=== PATIENT | female | born 1935 | race Caucasian/White ===

== ENCOUNTER 2016-12-03 12:27 | Inpatient (IN) ==
--- NOTE | 2016-12-03 12:48 | Emergency Department Note ---
Disposition Clinical Impression: Atrial fibrillation with rapid ventricular response, Acute blood loss anemia, Acute kidney injury superimposed on chronic kidney disease Disposition: Admitted As Inpatient Condition: Fair SOB HPI - General Chief Complaint: ED Shortness of Breath/Dyspnea Stated Complaint: "shortness of breath, off bp meds, tachy" Source: patient, EMS Mode of arrival: EMS Limitations: no limitations Nursing Notes Reviewed: Yes Vital Signs Reviewed: Yes - History of Present Illness 81-year-old female with a history of bioprosthetic mitral valve replacement 2000 , atrial fibrillation, heart failure EF 55-60% (10/24/15), COPD typically on 2L home oxygenation presents to the ED via EMS for difficulty in breathing. Patient reports recent discontinuation of her metoprolol due to persistent low blood pressures. This was reportedly done over the last 2 days. She reports progressive dyspnea over the past month. She denies any fevers or illness but does report coughing up phlegm or frequently. There is no particular colored is typically clear. She typically is able to walk into the kitchen but today was unable to. Her home health nurse called Dr. Vizcarra and was told to come to the ED for further evaluation. She reports scheduled appointment to your primary care physician was sent here instead. Denies any new medications and she continues to take her Coumadin. Denies any recent falls, chest pain, or nausea.Reports chronic abdominal pain for several months now. Denies any urinary symptoms. Review of her blood pressure she typically is in systolic 90s to 100. She lives at home in assisted living. Pt Subjective Complaint: shortness of breath - Related Data Home Medications Medication Instructions Recorded Confirmed Aspirin 81 mg PO DAILY 02/14/15 12/03/16 Cholecalciferol (Vitamin D3) 2,000 unit PO DAILY 02/14/15 12/03/16 [Vitamin D3] Docusate Sodium [Colace] 100 mg PO BID PRN 02/14/15 12/03/16 Estradiol [Estrace] 0.5 gm VG 2XW 02/14/15 12/03/16 Iron Polysaccharide Complex 150 mg PO BID 02/14/15 12/03/16 [Ferrex 150] Levothyroxine [Synthroid] 125 mcg PO 0630 02/14/15 12/03/16 Metolazone [Zaroxolyn] 2.5 mg PO Q48H 02/14/15 12/03/16 Metoprolol [Lopressor] 25 mg PO BID 02/14/15 12/03/16 Nitroglycerin 0.4 mg SL Q5MIN PRN 02/14/15 12/03/16 Omeprazole [PriLOSEC] 20 mg PO DAILY 02/14/15 12/03/16 Potassium Chloride 60 meq PO BID 02/14/15 12/03/16 Ranitidine HCl [Zantac] 150 mg PO BID PRN 02/14/15 12/03/16 Rosuvastatin [Crestor] 10 mg PO HS 02/14/15 12/03/16 Ascorbate Calcium [Vitamin C] 500 mg PO DAILY 05/12/16 12/03/16 Ondansetron HCl [Zofran] 4 mg PO TID PRN 05/12/16 12/03/16 Furosemide [Lasix] 80 mg PO DAILY MDD on hold 12/03/16 12/03/16 Loratadine [Allergy Relief] 10 mg PO DAILY 12/03/16 12/03/16 Oxycodone HCl [Oxaydo] 2.5 - 5 mg PO BID PRN 12/03/16 12/03/16 Oxygen 2 l NS CONT 12/03/16 12/03/16 Warfarin [Coumadin] 2 mg PO DAILY 12/03/16 12/03/16 Previous Rx's Medication Instructions Recorded Albuterol Neb [Proventil Neb] 2.5 mg IH [id number] #0 inhsol 05/16/16 Allergies Allergy/AdvReac Type Severity Reaction Status Date / Time Iodinated Contrast- Oral and Allergy Severe Anaphylaxis Verified 02/23/15 14:09 IV Dye [Iodinated Contrast Media - IV Dye] iodine Allergy Severe Anaphylaxis Verified 02/23/15 14:09 Penicillins Allergy Severe Swelling Verified 02/23/15 14:09 of Lip/Tongue/Throat povidone-iodine Allergy Severe Anaphylaxis Verified 02/23/15 14:09 [From Betadine] soap [From Betadine] Allergy Severe Anaphylaxis Verified 02/23/15 14:09 atorvastatin Allergy Intermediate Rash Verified 02/23/15 14:09 Sulfa (Sulfonamide Allergy Intermediate Rash Verified 02/23/15 14:09 Antibiotics) bacitracin Allergy Mild Rash Verified 02/23/15 14:09 nitrofurantoin Allergy Mild Rash Verified 02/23/15 14:09 [From Macrobid] polymyxin B Allergy Unknown See Verified 02/23/15 14:09 Comments egg yolk AdvReac Mild Nausea Verified 02/23/15 14:09 All systems ED: reviewed and negative except as stated. Constitutional: Denies: fever Cardiovascular: Reports: dyspnea on exertion. Denies: chest pain Respiratory: Reports: cough, dyspnea. Denies: hemoptysis, sputum production Gastrointestinal: Reports: abdominal pain. Denies: nausea, vomiting Genitourinary: Denies: urgency Musculoskeletal: Reports: back pain (Chronic) Integumentary: Denies: rash, abrasion Neurological: Denies: headache Past Medical History - Past Medical History Attestation: Yes The following information was validated with the patient. Source: patient Medical history: Reports: atrial fibrillation, CHF, COPD, coronary artery disease, GERD, hepatitis, hypertension, myocardial infarction, thyroid disease, valvular heart disease Surgical history: Reports: heart valve replacement (mitral), other (mitral and tricuspid valve leaflet repairs 2014) Psychiatric history: Reports: no psych history - Social History Smoking Status: Never smoker Smokeless Tobacco Status: No Alcohol use: Reports: none Drug use: Reports: none Physical Exam - General Limitations: no limitations, age General appearance: alert, in no apparent distress - Head Head exam: atraumatic, normocephalic, normal inspection - Eye Eye exam: Present: normal appearance, PERRL, EOMI, other (pale conjunctiva). Absent: scleral icterus - ENT ENT exam: normal exam, normal oropharynx, mucous membranes moist - Neck Neck exam: Present: normal inspection, full ROM, trachea midline - Chest Chest inspection: Present: normal inspection, symmetric chest wall rise. Absent : tenderness - Respiratory Respiratory exam: Present: normal lung sounds bilaterally. Absent: respiratory distress, wheezes - Expanded Respiratory Exam Location: decreased breath sounds: Right - Cardiovascular Cardiovascular exam: Present: tachycardia, irregular rhythm, normal heart sounds - Expanded Cardiovascular Exam Peripheral pulses: 2+: radial (R), radial (L) - Abdominal Exam Abdominal exam: Present: soft, tenderness, normal bowel sounds. Absent: distention, guarding, rebound, rigidity Abdominal tenderness: Present: diffuse - Extremities Exam Extremities exam: Present: normal inspection, full ROM, normal capillary refill , pedal edema (+2 symmetrical). Absent: tenderness, calf tenderness - Back Exam Back exam: Present: other (kyphosis) - Neurological Exam Neurological exam: Present: alert, oriented X3 - Psychiatric Psychiatric exam: Present: normal affect, normal mood - Skin Skin exam: Present: warm, dry, intact, pallor Course Course Narrative: 81-year-old female presents with worsening dyspnea. Patient is in atrial fibrillation with rapid ventricular response heart rate 120s. She has been recently discontinued on her metoprolol. Patient is on 2 L nasal cannula with good oxygen saturation. She does not appear in any respiratory distress. Heart is irregularly irregular. She has diminished breath sounds on the right but no rails. Pitting edema symmetric bilaterally. Concern this is a mixed picture of CHF versus aphid with RVR. Does report recent hospitalization for pneumonia in May 2016. She appears sensitive to beta blockers will give her small dose of Cardizem to rate control. Will get a CBC, BMP, INR to check for her Coumadin level, BNP and chest x-ray. Patient is in agreement with this plan. Anticipate admission. - Reevaluation(s) Reevaluation #1: Patient's sister reports patient is having chest pain. She does have a history of chronic back pain and this was mistaken as pain. I went into the room to evaluate the patient she says this is not feel like any chest pain. She was nauseated from the medication given and while she was spitting up at some discomfort. EKG was performed in does not show any EKG changes. A critical lab was reported hemoglobin low 5.2. Type and screen ordered. Suspect this is why she is A fib c RVR. Patient does report bloody stool yesterday after wiping. History of polyps after colonoscopy with removal. Required blood transfusion several years ago after a fall. Her last hgb 9 in May 2016. Transfuse 2 units of pRBC after getting consent. Time: 13:36 Reevaluation #2: Review of her labs anemia 5.2. Suspect acute G.I. bleed. BUN is 53. Her INR appears therapeutic 3.5. Her potassium is 5.5 she reports taking supplemental potassium at home. Her creatinine is elevated 2.14 she has a history of CK D. Planus for admission. She has consented to blood transfusion. Heart rate continues to be 120s while on Cardizem. Suspect her arrhythmia will improve after transfusion. Time: 13:59 Reevaluation #3: Continue to await G.I. to call back. Call the calling center appears he is busy with a procedure at this moment. She continues to be stable. Currently receiving 1st unit of packed red blood cells. Time: 15:40 - Consultations Consultation #1: Spoke with on-call hospitalist félix Guzman to admit for acute G.I. bleed anemia, TJ on CKD, atrial fibrillation with rapid ventricular response. Recommends to consult G.I. for possible endoscopy tomorrow Time: 14:27 Consultation #2: Patient is already admitted and transferred to the floor. Dr. Robertson GI, called back and was informed of case. He is on board for possible endoscopy. Time: 18:53 Vital Signs Temperature 97.5 F L 12/03/16 12:33 Pulse Rate 121 12/03/16 12:33 Respiratory Rate 18 12/03/16 12:33 Blood Pressure 116/67 12/03/16 12:33 O2 Sat by Pulse Oximetry 100 12/03/16 12:33 Temperature 97.9 F 12/03/16 18:20 Pulse Rate 99 12/03/16 18:20 Respiratory Rate 18 12/03/16 18:20 Blood Pressure 95/63 12/03/16 18:20 O2 Sat by Pulse Oximetry 100 12/03/16 18:20 Oxygen Delivery Oxygen Delivery Nasal Cannula Shortness of Breath/Dyspnea - MDM Narrative Medical decision making narrative: I examined this patient and my medical decision-making was reviewed with the AIRCRAFT MACHINIST HELPER/PA/Advanced Practice Nurse/Resident Physician. I agree with the documented findings, disposition and treatment plan as described except to the extent set forth below. Patient was seen on arrival by Dr. Dempsey and myself, I agree with his evaluation and management plan, supervised care the patient notes today. Patient states that she has had rapid heart rate and dyspnea going for last couple days. She states they have taken her off her beta camelia because her heart rate was getting too low. She thinks that may be causing this. She is of A. fib in the past. She denies any chest pain at this time. No edema. Brachial workup on her started on Cardizem here and reassessed. She is in agreement with plan. She will need admission. Chest X-Ray 12/03/16 12:31 IMPRESSION: Moderate right pleural effusion with basilar atelectasis. Cardiomegaly. D/ / Saleem French MD / Saleem French MD Interpreting Provider: Saleem French MD 1400 hrs.: Patient does have a GI bleaches a dark-colored stools low hemoglobin. I think that is why the reasons why she has A. fib with RVR. She has had A. fib in the past. We will keep her on the Cardizem. When I talk with GI. Go ahead and set up for transfusion. And bring her into the hospital. She is in agreement with this plan. Impression was A. fib with RVR. GI bleed with anemia. Patient's critical care time exclusive separately billable procedures is 40 minutes. - Medical Records Medical records reviewed: Yes I reviewed the patient's medical records. - Lab Data Lab results reviewed: Yes I reviewed the patient's lab results. Result diagrams: 12/03/16 13:04 12/03/16 13:04 Lab Results 12/03/16 12/03/16 12/03/16 Range/Units 13:04 13:04 13:04 WBC 5.7 (4.3-11.1) K/mcL RBC 3.05 L (3.82-4.97) M/mcL Hgb 5.2 L* (11.5-15.4) g/dL Hct 19.8 L (35.3-44.9) % MCV 64.9 L (83.0-100.0) fL MCH 17.0 L (28.0-33.3) pg MCHC 26.3 L (31.6-35.5) g/dL RDW 19.8 H (11.5-14.5) % Plt Count 210 (140-400) K/mcL MPV TNP Immature Gran % 0.4 (0-4) % Seg Neutrophils % 65.8 % Lymphocytes % 14.3 % Monocytes % 14.3 % Eosinophils % 4.8 % Basophils % 0.4 % Neutrophils # 3.8 (1.6-8.9) K/mcL Lymphocytes # 0.8 (0.6-4.6) K/mcL Monocytes # 0.8 (0.0-1.3) K/mcL Eosinophils # 0.3 (0.0-0.6) K/mcL Basophils # 0.0 (0.0-0.2) K/mcL Platelet Estimate Normal (Normal) Polychromasia 3+ A (Not Present) Hypochromasia Present A (Not Present) Anisocytosis 2+ A (Not Present) Microcytosis Present A (Not Present) Schistocytes 3+ A (Not Present) PT 39.1 H (9.4-12.1) Seconds INR 3.5 Sodium 137 (136-145) mEq/L Potassium 5.5 H (3.5-4.5) mEq/L Chloride 106 (98-109) mEq/L Carbon Dioxide 23 (19-29) mEq/L BUN 53 H (7-20) mg/dL Creatinine 2.14 H (0.57-1.11) mg/dL Est GFR ( Amer) 27 L (> 60) Est GFR (Non-Af Amer) 22 L (> 60) BUN/Creatinine Ratio 25 (6-26) Glucose 121 H (70-99) mg/dL Calculated Osmolality 300 (280-300) Calcium 9.0 (8.6-10.8) mg/dL Troponin I (0-0.03) ng/mL B-Natriuretic Peptide (0-100) pg/mL Blood Type Antibody Screen Crossmatch 12/03/16 12/03/16 12/03/16 Range/Units 13:04 13:04 13:49 WBC (4.3-11.1) K/mcL RBC (3.82-4.97) M/mcL Hgb (11.5-15.4) g/dL Hct (35.3-44.9) % MCV (83.0-100.0) fL MCH (28.0-33.3) pg MCHC (31.6-35.5) g/dL RDW (11.5-14.5) % Plt Count (140-400) K/mcL MPV Immature Gran % (0-4) % Seg Neutrophils % % Lymphocytes % % Monocytes % % Eosinophils % % Basophils % % Neutrophils # (1.6-8.9) K/mcL Lymphocytes # (0.6-4.6) K/mcL Monocytes # (0.0-1.3) K/mcL Eosinophils # (0.0-0.6) K/mcL Basophils # (0.0-0.2) K/mcL Platelet Estimate (Normal) Polychromasia (Not Present) Hypochromasia (Not Present) Anisocytosis (Not Present) Microcytosis (Not Present) Schistocytes (Not Present) PT (9.4-12.1) Seconds INR Sodium (136-145) mEq/L Potassium (3.5-4.5) mEq/L Chloride (98-109) mEq/L Carbon Dioxide (19-29) mEq/L BUN (7-20) mg/dL Creatinine (0.57-1.11) mg/dL Est GFR ( Amer) (> 60) Est GFR (Non-Af Amer) (> 60) BUN/Creatinine Ratio (6-26) Glucose (70-99) mg/dL Calculated Osmolality (280-300) Calcium (8.6-10.8) mg/dL Troponin I 0.01 (0-0.03) ng/mL B-Natriuretic Peptide 473 H (0-100) pg/mL Blood Type O NEGATIVE Antibody Screen NEGATIVE Crossmatch See Detail - Radiology Data Radiology results reviewed: Yes I reviewed the patient's radiology results. Chest X-Ray 12/03/16 12:31 IMPRESSION: Moderate right pleural effusion with basilar atelectasis. Cardiomegaly. D/ / Saleem French MD / Saleem French MD Interpreting Provider: Saleem French MD - EKG Data EKG attestation: Yes I reviewed and interpreted this EKG. EKG results narrative: EKG performed 1234 reveals atrial fibrillation with rapid ventricular response 125 bpm with aberrancy old RBBB, QRS calculated 97, nonspecific ST changes secondary to rate. No acute ischemic changes. Compared to old EKG performed which reveals sinus bradycardia with the first-degree AV block Emmer right bundle branch block QRS 121
[2016-12-03 13:24] LABS: Red Cell Distribution Width 19.8 % (11.5-14.5)
[2016-12-03 13:25] LABS: Hematocrit 19.8 % (35.3-44.9); Immature Granulocytes % 0.4 % (0-4); Lymphocytes % 14.3 %; Mean Corpuscular HGB Conc 26.3 g/dL (31.6-35.5); Mean Corpuscular Volume 64.9 fL (83.0-100.0); Platelet Count 210 K/mcL (140-400); Red Blood Count 3.05 M/mcL (3.82-4.97); Segmented Neutrophils % 65.8 %
[2016-12-03 13:26] LABS: Basophils % 0.4 %; Eosinophils # 0.3 K/mcL (0.0-0.6); Eosinophils % 4.8 %; INR 3.5; Lymphocytes # 0.8 K/mcL (0.6-4.6); Monocytes # 0.8 K/mcL (0.0-1.3); Monocytes % 14.3 %; Prothrombin Time 39.1 Seconds (9.4-12.1)
[2016-12-03 13:33] LABS: Potassium 5.5 mEq/L (3.5-4.5)
[2016-12-03 13:37] LABS: Neutrophils # 3.8 K/mcL (1.6-8.9)
[2016-12-03] MEDS ORDERED: Ondansetron 4 MG/2 ML VIAL IVP ONE (13:37)
[2016-12-03 13:38] LABS: Hemoglobin 5.2 g/dL (11.5-15.4)
[2016-12-03] MEDS ORDERED: *HR* HYDROcodone/Acet 5/325 mg TABLET PO ONE (13:54)
[2016-12-03 14:07] LABS: Anisocytosis 2+ (Not Present)
[2016-12-03 14:08] LABS: Hypochromasia Present (Not Present); Microcytosis Present (Not Present)
[2016-12-03 14:09] LABS: Platelet Estimate Normal (Normal); Polychromasia 3+ (Not Present); Schistocytes 3+ (Not Present)
[2016-12-03] MEDS ORDERED: 0.9 % Sodium Chloride 250 ML ONE (14:54)
[2016-12-03] MEDS ORDERED: Furosemide 20 MG/2 ML VIAL IVP ONE (17:37)
[2016-12-03] MEDS ORDERED: Naloxone 0.4 MG/ML INJ IVP PRN (17:47)
--- NOTE | 2016-12-03 17:58 | Internal Med History&Physical ---
Date of Encounter: 12/03/16 Time of Encounter: 17:30 Assessment and Plan (1) Anemia Current visit: Yes Status: Acute Patient with acute severe blood loss anemia with hemoglobin of 5.2. Transfuse packed red blood cells. Consult GI. Negative blood counts. High risk for complications due to chronic Coumadin therapy. Most likely from GI bleed. Qualifiers: Anemia type: other cause Other causes of anemia: acute posthemorrhagic Qualified Code(s): D62 - Acute posthemorrhagic anemia (2) Acute blood loss anemia Current visit: Yes Status: Acute (3) Atrial fibrillation with rapid ventricular response Current visit: Yes Status: Acute Patient in A. fib with RVR. Started on intravenous Cardizem drip. We will continue and titrate to keep heart rate less than 100. (4) Chronic diastolic heart failure Current visit: Yes Status: Chronic We will give 1 dose of IV Lasix today in between blood transfusions. Patient does have worsening pedal edema. As blood pressure improves, will resume home regimen of Lasix. (5) Supratherapeutic international normalized ratio (INR) Current visit: Yes Status: Acute INR is 3.5. Hold Coumadin. On chronic Coumadin therapy for A. fib. Patient also has a bioprosthetic mitral valve. (6) JT (acute kidney injury) Current visit: Yes Status: Acute Mild acute kidney injury on chronic kidney disease likely related to anemia. We will transfuse. Follow renal function. (7) Acute kidney injury superimposed on chronic kidney disease Current visit: Yes Status: Acute (8) CKD (chronic kidney disease) stage 3, GFR 30-59 ml/min Current visit: No Status: Chronic (9) Chronic respiratory failure with hypoxia Current visit: Yes Status: Chronic Continue O2 supplementation. (10) GI bleed Current visit: Yes Status: Acute Patient presenting with lower GI bleed. Hold Coumadin. Place on PPI. Consult GI. Monitor blood counts. Qualifiers: GI bleed type/associated pathology: anorectal hemorrhage Qualified Code(s) : K62.5 - Hemorrhage of anus and rectum Internal Medicine - H&P: HPI Chief complaint: Shortness of breath, generalized weakness, lower extremity swelling Admitted From: Emergency Dept Plans for Post Hospital Care: Home History of present illness: Ms. Carter is a 81 year old female patient with history of atrial fibrillation, bioprosthetic mitral valve replacement on chronic Coumadin therapy, congestive heart failure presented to the ER with complaints of shortness of breath and generalized weakness. She has also been having worsening of her pedal edema for the past couple of days after she was advised to hold Lasix and metoprolol due to low blood pressures. She denies any chest pain. No nausea or vomiting. She also has been noticing blood in her stools for the past week or so. She feels fatigued. Complains of palpitations off and on. No focal weakness. Past Med Surg Social Fam HX - Past Medical History Attestation: Yes The following information was validated with the patient. Source: patient, old records reviewed, obtained from family Medical history: atrial fibrillation, CHF, COPD, coronary artery disease, GERD, hepatitis, hypertension, myocardial infarction, thyroid disease, valvular heart disease Psychiatric history: no psych history - Past Surgical History Surgical History: heart valve replacement (mitral), other (mitral and tricuspid valve leaflet repairs 2014) - Social History Smoking Status: Never smoker Smokeless Tobacco Status: No Alcohol use: none Drug use: none - Family History Father Living Status: Hx Family Cardiac Disorders: Yes Mother Family Member Ethnicity: Non- Living Status: Hx Family Cardiac Disorders: Yes Sister Living Status: Still Living Hx Family Cancer: Yes (colon) Hx Family Endocrine Disorder: Yes (DM) Internal Medicine - H&P: Meds Aspirin 81 mg PO DAILY 02/14/15 [History] Cholecalciferol (Vitamin D3) [Vitamin D3] 2,000 unit PO DAILY 02/14/15 [History] Docusate Sodium [Colace] 100 mg PO BID PRN 02/14/15 [History] Estradiol [Estrace] 0.5 gm VG 2XW 02/14/15 [History] Iron Polysaccharide Complex [Ferrex 150] 150 mg PO BID 02/14/15 [History] Levothyroxine [Synthroid] 125 mcg PO 0630 02/14/15 [History] Metolazone [Zaroxolyn] 2.5 mg PO Q48H 02/14/15 [History] Metoprolol [Lopressor] 25 mg PO BID 02/14/15 [History] Nitroglycerin 0.4 mg SL Q5MIN PRN 02/14/15 [History] Omeprazole [PriLOSEC] 20 mg PO DAILY 02/14/15 [History] Potassium Chloride 60 meq PO BID 02/14/15 [History] Ranitidine HCl [Zantac] 150 mg PO BID PRN 02/14/15 [History] Rosuvastatin [Crestor] 10 mg PO HS 02/14/15 [History] Ascorbate Calcium [Vitamin C] 500 mg PO DAILY 05/12/16 [History] Ondansetron HCl [Zofran] 4 mg PO TID PRN 05/12/16 [History] Albuterol Neb [Proventil Neb] 2.5 mg IH [id number] #0 inhsol 05/16/16 [Rx] Furosemide [Lasix] 80 mg PO DAILY MDD on hold 12/03/16 [History] Loratadine [Allergy Relief] 10 mg PO DAILY 12/03/16 [History] Oxycodone HCl [Oxaydo] 2.5 - 5 mg PO BID PRN 12/03/16 [History] Oxygen 2 l NS CONT 12/03/16 [History] Warfarin [Coumadin] 2 mg PO DAILY 12/03/16 [History] Allergies Iodinated Contrast- Oral and IV Dye [Iodinated Contrast Media - IV Dye] Allergy (Severe, Verified 02/23/15 14:09) Anaphylaxis iodine Allergy (Severe, Verified 02/23/15 14:09) Anaphylaxis Penicillins Allergy (Severe, Verified 02/23/15 14:09) Swelling of Lip/Tongue/Throat povidone-iodine [From Betadine] Allergy (Severe, Verified 02/23/15 14:09) Anaphylaxis soap [From Betadine] Allergy (Severe, Verified 02/23/15 14:09) Anaphylaxis atorvastatin Allergy (Intermediate, Verified 02/23/15 14:09) Rash Sulfa (Sulfonamide Antibiotics) Allergy (Intermediate, Verified 02/23/15 14:09) Rash bacitracin Allergy (Mild, Verified 02/23/15 14:09) Rash nitrofurantoin [From Macrobid] Allergy (Mild, Verified 02/23/15 14:09) Rash polymyxin B Allergy (Unknown, Verified 02/23/15 14:09) See Comments egg yolk Adverse Reaction (Mild, Verified 02/23/15 14:09) Nausea All Systems PM: A 10-system review of systems was performed and is negative for pertinent findings except as documented above in the HPI. - Constitutional Constitutional: fatigue, malaise, weakness, no chills, no fever(s), no night sweats - EENT Eyes: no change in vision, no discharge, no pain, no photophobia Ears: no ear discharge, no ear pain, no tinnitus Nose, mouth and throat: no dysphagia, no nasal discharge, no neck pain, no sore throat - Cardiovascular Cardiovascular ROS IM: dyspnea, dyspnea on exertion, edema, palpitations, no chest pain, no diaphoresis, no lightheadedness, no syncope - Respiratory Respiratory: no dyspnea, no wheezing, no excessive phlegm production - Gastrointestinal Gastrointestinal: hematochezia, no abdominal pain, no diarrhea, no hematemesis, no melena, no nausea, no vomiting - Genitourinary Genitourinary: no change in urinary stream, no dysuria, no flank pain, no hematuria - Musculoskeletal Musculoskeletal ROS IM: no numbness, no tingling - Integumentary Integumentary IM: no rash, no unusual bruising - Neurological Neurological ROS: no confusion, no convulsions, no focal weakness, no numbness, no tingling, no tremor(s) - Hematologic/Lymphatic Hematologic/Lymphatic: easy bleeding, no easy bruising - Constitutional Vitals: Temp Pulse Resp BP Pulse Ox 97.5 F L 101 18 91/58 98 12/03/16 16:58 12/03/16 16:58 12/03/16 16:58 12/03/16 16:58 12/03/16 16:58 General appearance: Present: cooperative, mild distress, A&O X 3, pleasant, answers questions appropriately - Neck Neck exam general surgery: Present: supple, trachea midline. Absent: lymphadenopathy - Respiratory Respiratory exam: Present: CTAB. Absent: accessory muscle use, rales, rhonchi, wheezes - Cardiovascular Cardiovascular exam: Present: irregular rhythm (Irregularly irregular), +S1, +S2 , systolic murmur, tachycardia. Absent: diastolic murmur, gallop, rubs - Extremities Exam Extremities exam: Present: warm, radial pulses palpable and symetrical. Absent : calf tenderness, cyanotic, pedal edema - Neurological Exam Neurological exam: Present: alert, CN II-XII intact, oriented X3, no focal deficits. Absent: facial droop, speech deficit - Skin Skin exam: Present: dry, intact Internal Med - H&P Results - Labs CBC & Chem 7: 12/03/16 13:04 12/03/16 13:04 - Impressions Impressions Chest X-Ray 12/03/16 12:31 IMPRESSION: Moderate right pleural effusion with basilar atelectasis. Cardiomegaly. D/ / Saleem French MD / Saleem French MD Interpreting Provider: Saleem French MD
[2016-12-03] MEDS ORDERED: Nitroglycerin 0.4 MG TAB.SUBL SL PRN (18:10)
[2016-12-03] MEDS: Iron Polysaccharide Complex 150 MG CAPSULE PO SCH (20:15)
[2016-12-03] MEDS: Albuterol 2.5 MG/3 ML NEBULIZER IH SCH (20:35)
[2016-12-03] MEDS: *HR* OxyCODONE Immed Rel 5 MG TABLET PO PRN (20:45)
[2016-12-03] MEDS: Ondansetron 4 MG/2 ML VIAL IVP PRN (20:47)
[2016-12-04] MEDS: Albuterol 2.5 MG/3 ML NEBULIZER IH SCH ×3 (00:05→09:15)
[2016-12-04 01:11] LABS: Immature Granulocytes % 0.6 % (0-4); Segmented Neutrophils % 63.2 %
[2016-12-04 01:13] LABS: Basophils # 0.1 K/mcL (0.0-0.2); Basophils % 0.8 %; Eosinophils # 0.3 K/mcL (0.0-0.6); Eosinophils % 3.9 %; Hematocrit 25.8 % (35.3-44.9); Hemoglobin 7.5 g/dL (11.5-15.4); Immature Platelets 6.1 % (1.1-6.1); Lymphocytes # 1.2 K/mcL (0.6-4.6); Lymphocytes % 18.7 %; Mean Corpuscular HGB Conc 29.1 g/dL (31.6-35.5); Mean Corpuscular Hemoglobin 20.2 pg (28.0-33.3); Mean Corpuscular Volume 69.4 fL (83.0-100.0); Monocytes # 0.8 K/mcL (0.0-1.3); Monocytes % 12.8 %; Neutrophils # 4.1 K/mcL (1.6-8.9); Nucleated Red Blood Cells 0.8 /100 WBC (0); Platelet Count 144 K/mcL (140-400); Red Blood Count 3.72 M/mcL (3.82-4.97)
[2016-12-04 01:15] LABS: INR 2.6; Prothrombin Time 29.4 Seconds (9.4-12.1)
[2016-12-04 01:20] LABS: Calcium 8.7 mg/dL (8.6-10.8); Potassium 4.5 mEq/L (3.5-4.5)
[2016-12-04 01:37] LABS: Anisocytosis 3+ (Not Present); Hypochromasia Present (Not Present); Microcytosis Present (Not Present); Platelet Estimate Normal (Normal); Poikilocytosis 2+ (Not Present); Schistocytes 1+ (Not Present); Target Cells 1+ (Not Present)
[2016-12-04] MEDS ORDERED: Acetaminophen 325 MG TABLET PO ONE (05:04)
[2016-12-04] MEDS: *HR* OxyCODONE Immed Rel 5 MG TABLET PO PRN ×2 (06:05→15:47)
[2016-12-04] MEDS: Iron Polysaccharide Complex 150 MG CAPSULE PO SCH ×2 (07:40→21:13)
[2016-12-04] MEDS: Loratadine 10 MG TABLET PO SCH (07:40)
[2016-12-04] MEDS ORDERED: Aspirin 81 MG TAB.CHEW PO SCH (09:00)
--- NOTE | 2016-12-04 09:11 | Internal Med Progress Note ---
Date of Encounter: 12/04/16 Time of Encounter: 09:09 - Assessment and plan (1) Acute blood loss anemia Current Visit: Yes Status: Acute Assessment and plan: Secondary to GI bleed Hold Coumadin and Aspirin at this time S/p 2unit PRBC transfusion Will transfuse one more unit, given current clinical status awaiting GI consultation closely monitor H&H, H&H q12h INR within therapeutic range at this time, will follow up with GI in regards to further INR reversal prior to colonoscopy NPO at this time, will start clear liquid diet if no GI intervention is scheduled for today (2) Acute kidney injury superimposed on chronic kidney disease Current Visit: Yes Status: Acute Assessment and plan: Likely secondary to acute blood loss will transfuse one more unit PRBC hold antihypertensive agents at this time will closely monitor renal function avoid nephrotoxic agents at this time. (3) Atrial fibrillation with rapid ventricular response Current Visit: Yes Status: Acute Assessment and plan: Afib with RVR rate poorly controlled likely secondary to acute blood loss hold off on cardizem gtt at this time pt clinically stable at this time will transfuse one more unit PRBC and if tachycardia persists, will start amiodarone hold anticoagulation at this time hold ASA at this time (4) CAD (coronary artery disease) Current Visit: No Status: Chronic Assessment and plan: no signs of angina present at this time hold ASA at this time continue statin hold BB given current BP readings Qualifiers: Coronary Disease-Associated Artery/Lesion type: unspecified vessel or lesion type [place] vs. transplanted heart: [place] heart Associated angina: without angina Qualified Code(s): I25.10 - Atherosclerotic heart disease of [place] coronary artery without angina pectoris (5) Chronic diastolic heart failure Current Visit: Yes Status: Chronic (6) Chronic respiratory failure with hypoxia Current Visit: Yes Status: Chronic Assessment and plan: Secondary to acute blood loss anemia improved since admission continue O2 supplementation as needed (7) COPD (chronic obstructive pulmonary disease) Current Visit: No Status: Chronic Assessment and plan: not in acute exacerbation continue home medications closely monitor O2 saturation Qualifiers: COPD type: unspecified COPD Qualified Code(s): J44.9 - Chronic obstructive pulmonary disease, unspecified (8) Supratherapeutic international normalized ratio (INR) Current Visit: Yes Status: Resolved Assessment and plan: Resolved INR within therapeutic range at this time hold off on anticoagulation at this time (9) DVT prophylaxis Current Visit: Yes Status: Acute Assessment and plan: SCD - Subjective Interval history: Patient is an 81y/o female admitted for acute blood loss anemia and Afib with RVR. Patient seen and examined with daughter present at bedside. Patient reports of noticing blood in stool intermittently for the last few weeks and has continued to take her Coumadin and ASA. She is currently resting in bed and reports of feeling better compared to previous day. States she still feels slightly short of breath however its better since her arrival. Denies any chest pain at this time. NO reported episodes of BM or hemetemesis since admission. Noted to remain in Afib with RVR and given labile BP will hold off on cardizem gtt. Will transfuse another unit PRBC and closely monitor. I had a detailed discussion with the patient and daughter in regards to patient' s advance directives. Patient wishes to be DNR/DNI. Daughter states that she has filled paper work expressing patient's wishes. - Constitutional Vitals: Temp Pulse Resp BP Pulse Ox 97.4 F L 109 16 84/62 96 12/04/16 07:55 12/04/16 07:55 12/04/16 07:55 12/04/16 07:55 12/04/16 07:55 General appearance: Present: cooperative, A&O X 3, pleasant, no acute distress, answers questions appropriately - Head Head exam: Present: atraumatic, normocephalic - Eye Eye exam: Present: normal appearance, conjuntiva pink, sclera anicteric - Respiratory Respiratory exam: Present: CTAB. Absent: respiratory distress, wheezes - Cardiovascular Cardiovascular exam: Present: irregular rhythm, +S1, +S2, tachycardia - GI/Abdominal GI/Abdominal exam: Present: normal bowel sounds, soft. Absent: distended, tenderness - Extremities Exam Extremities exam: Present: pedal edema (mild bilateral pitting edema ), warm, radial pulses palpable and symetrical. Absent: calf tenderness - Neurological Exam Neurological exam: Present: alert, oriented X3 - Psychiatric Psychiatric exam: Present: normal affect, normal mood Internal Medicine: Result - Labs CBC & Chem 7: 12/04/16 00:41 12/04/16 00:41 Labs: Short CBC 12/04/16 Range/Units 00:41 WBC 6.5 (4.3-11.1) K/mcL Hgb 7.5 L D (11.5-15.4) g/dL Hct 25.8 L (35.3-44.9) % Plt Count 144 (140-400) K/mcL Neutrophils # 4.1 (1.6-8.9) K/mcL BMP 12/04/16 00:41 Sodium 137 Potassium 4.5 D Chloride 105 Carbon Dioxide 20 BUN 51 H Creatinine 2.02 H Glucose 148 H Calcium 8.7 - ABG Interpretation ABG results: PT/INR, D-dimer PT 29.4 Seconds (9.4-12.1) H 12/04/16 00:41 Consult Discharge Plan - Plan Referrals: Grayson Vizcarra MD [Primary Care Provider] -
[2016-12-04] MEDS ORDERED: *HR* Phytonadione 10 MG/ML AMPUL SQ ONE (09:35)
[2016-12-04] MEDS ORDERED: 0.9 % Sodium Chloride 250 ML ONE (09:50)
--- NOTE | 2016-12-04 12:07 | Gastroenterology Consult Note ---
<Alonzo Nesbitt - Last Filed: 12/04/16 12:04> Date of Encounter: 12/04/16 Time of Encounter: 10:20 - Assessment and plan (1) Anemia Current Visit: Yes Status: Acute Assessment and plan: Hemoccult 5.2 at admission, this a.m. hemoglobin 7.5. Continue to monitor CBC and transfuse PRBCs as needed. Plan for EGD and colonoscopy tomorrow. Clear liquid diet today, no red or purple. NPO at midnight. If unable tolerate NuLytely please use MiraLAX prep. If not clear by 6 AM, give 2 tap water enemas. Qualifiers: Anemia type: other cause Other causes of anemia: acute posthemorrhagic Qualified Code(s): D62 - Acute posthemorrhagic anemia (2) Supratherapeutic international normalized ratio (INR) Current Visit: Yes Status: Resolved Assessment and plan: INR 2.6, will need to be corrected for EGD and colonoscopy to 1.5. (3) COPD (chronic obstructive pulmonary disease) Current Visit: No Status: Chronic Assessment and plan: Management per primary team. Qualifiers: COPD type: unspecified COPD Qualified Code(s): J44.9 - Chronic obstructive pulmonary disease, unspecified (4) Atrial fibrillation with rapid ventricular response Current Visit: Yes Status: Acute (5) Family history of colon cancer Current Visit: Yes Status: Acute Assessment and plan: Patient's sister diagnosed at age 78. - Time Spent With Patient Total time spent is greater than 50% in coordination of care (as documented) at patient's floor/unit and/or counseling patient: GI History of Present Illness - Data of Consult Patient: new to practice Consult date: 12/04/16 Requesting Physician: Rose Marie Figueredo MD - Consult Narrative Reason for consult: Anemia, GI Bleed History of present illness: Ms. Carter is a 81 year old female with PMHx of Afib, CHF, COPD, CAD, mitral valve replacement on Coumadin, GERD, HTN, ND who presented to the ED with c/o shortness of breath and weakness. She denies fever, chills, chest pain, abdominal pain, nausea, or vomiting. We were consulted to evaluate her anemia. Hgb on admission was 5.2 and after 2 units PRBC her Hgb is 7.5. INR was supratherapeutic at 3.5 on admission and this morning INR 2.6. She reported BRBPR with wiping the day before admission. Pt states her sister was diagnosed with colon cancer at age 78. Procedures: Colonoscopy 09/10/2011 Dr. Busby: Significant looping of the colon, diverticulosis. NSAIDs: ASA Anticoagulation: Coumadin Past Med Surg Social Fam HX - Past Medical History Medical history: atrial fibrillation, CHF, COPD, coronary artery disease, GERD, hepatitis, hypertension, myocardial infarction, thyroid disease, valvular heart disease Psychiatric history: no psych history - Past Surgical History Surgical History: heart valve replacement (mitral), other (mitral and tricuspid valve leaflet repairs 2014) - Social History Smoking Status: Never smoker Smokeless Tobacco Status: No Alcohol use: none Drug use: none - Family History Father Living Status: Hx Family Cardiac Disorders: Yes Mother Family Member Ethnicity: Non- Living Status: Hx Family Cardiac Disorders: Yes Sister Living Status: Still Living Hx Family Cancer: Yes (colon) Hx Family Endocrine Disorder: Yes (DM) - Gastrointestinal Gastrointestinal: Present: as per HPI - Constitutional Constitutional: as per HPI - EENT Eyes: as per HPI Ears: Present: as per HPI Nose, mouth and throat: Present: as per HPI - Cardiovascular Cardiovascular ROS: Present: as per HPI - Respiratory Respiratory IM: Present: as per HPI - Genitourinary Genitourinary: Absent: change in color, Urinary frequency - Neurological ROS Neurological GI: Present: as per HPI - Hematologic/Lymphatic Hematologic/Lymphatic pediatric: Present: as per HPI - Musculoskeletal Musculoskeletal ROS GI: Present: as per HPI - Integumentary Integumentary GI: Present: as per HPI - Psychiatric ROS Psychiatric GI: Present: as per HPI - Endocrine Endocrine IM: Present: as per HPI - Constitutional Vitals: Temp Pulse Resp BP Pulse Ox 97.2 F L 121 16 84/53 96 12/04/16 11:45 12/04/16 11:45 12/04/16 11:45 12/04/16 11:45 12/04/16 11:45 General appearance: Present: cooperative, A&O X 3, no acute distress, answers questions appropriately - Head Head exam: Present: atraumatic, normocephalic - Eye Eye exam: Present: normal appearance, sclera anicteric - ENT ENT exam: Present: mucous membranes dry - Neck Neck exam general surgery: Present: normal inspection, trachea midline - Respiratory Respiratory exam: Present: decreased breath sounds, CTAB. Absent: rales, rhonchi - Cardiovascular Cardiovascular exam: Present: RRR, +S1, +S2 - GI/Abdominal GI/Abdominal exam: Present: soft, no peritoneal signs. Absent: distended, firm , guarding, tenderness - Rectal Rectal exam: Present: deferred - Extremities Exam Extremities exam: Present: warm - Neurological Exam Neurological exam: Present: no focal deficits - Psychiatric Psychiatric exam: Present: normal affect, normal mood - Skin Skin exam: Present: dry, intact, normal color, warm Results - Labs CBC & Chem 7: 12/04/16 00:41 12/04/16 00:41 Labs: Last Result Calcium 8.7 mg/dL (8.6-10.8) 12/04/16 00:41 Iron 161 mcg/dL (50-170) 12/04/16 00:41 % Saturation 38 % (15-50) 12/04/16 00:41 Transferrin 305 mg/dL (180-382) 12/04/16 00:41 Ferritin 38 ng/ml (5-204) 12/04/16 00:41 Troponin I 0.01 ng/mL (0-0.03) 12/03/16 13:04 Entire Visit Hgb 7.5 g/dL (11.5-15.4) L D 12/04/16 00:41 Hct 25.8 % (35.3-44.9) L 12/04/16 00:41 PT 29.4 Seconds (9.4-12.1) H 12/04/16 00:41 Ferritin 38 ng/ml (5-204) 12/04/16 00:41 - ABG ABG results: PT/INR, D-dimer PT 29.4 Seconds (9.4-12.1) H 12/04/16 00:41 Consult Discharge Plan - Plan Referrals: Grayson Vizcarra MD [Primary Care Provider] - 12/11/16 3:15 pm (your appointment for 12-09-[address] Vizcarra has been cancelled) <Douglas Robertson - Last Filed: 12/04/16 18:03> Date of Encounter: 06/22/17 Time of Encounter: 17:15 - Time Spent With Patient Total time spent is greater than 50% in coordination of care (as documented) at patient's floor/unit and/or counseling patient: GI History of Present Illness - Data of Consult Requesting Physician: Rose Marie Figueredo MD - Consult Narrative History of present illness: Ms. Carter is a 81 year old female - Constitutional Vitals: Temp Pulse Resp BP Pulse Ox 97.8 F 102 18 104/72 94 12/04/16 16:00 12/04/16 16:00 12/04/16 16:00 12/04/16 16:00 12/04/16 16:00 Results - Labs CBC & Chem 7: 12/04/16 00:41 12/04/16 00:41 Labs: Last Result Calcium 8.7 mg/dL (8.6-10.8) 12/04/16 00:41 Iron 161 mcg/dL (50-170) 12/04/16 00:41 % Saturation 38 % (15-50) 12/04/16 00:41 Transferrin 305 mg/dL (180-382) 12/04/16 00:41 Ferritin 38 ng/ml (5-204) 12/04/16 00:41 Troponin I 0.01 ng/mL (0-0.03) 12/03/16 13:04 Entire Visit Hgb 7.5 g/dL (11.5-15.4) L D 12/04/16 00:41 Hct 25.8 % (35.3-44.9) L 12/04/16 00:41 PT 29.4 Seconds (9.4-12.1) H 12/04/16 00:41 Ferritin 38 ng/ml (5-204) 12/04/16 00:41 - ABG ABG results: PT/INR, D-dimer PT 29.4 Seconds (9.4-12.1) H 12/04/16 00:41 - Impressions Impressions Head CT 12/04/16 11:00 IMPRESSION: No acute intracranial abnormality. Scattered fluid in the left mastoid air cells and middle ear cavity, which can be seen with otomastoiditis. D/ / 12/04/2016 15:38:26 Kirk Joe MD / bcarter Interpreting Provider: Kirk Joe MD - Attending Attestation I examined this patient and my medical decision-making was reviewed with the DATA SUPPORT ANALYST/PA/Advanced Practice Nurse/Resident Physician. I agree with the documented findings, disposition and treatment plan as described except to the extent set forth below.
[2016-12-04] MEDS: Levalbuterol Neb 0.63 MG/3 ML IH SCH ×4 (12:09→23:37)
--- NOTE | 2016-12-04 16:00 | Cardiology Consult Note ---
<Tessie Rivas - Last Filed: 12/04/16 16:24> Date of Encounter: 12/04/16 Time of Encounter: 15:30 Assessment and Plan (1) Anemia Current Visit: Yes Status: Acute Per cardiology: -Patient with increased shortness of breath. -Hemoglobin 5.2 on amdission. -Has received 3 total units of PRBC. -Gi has been consulted. -PLan for EGD and colonoscopy tomorrow. -Management per primary and GI services. -May be contributing to tachycardia. Qualifiers: Anemia type: other cause Other causes of anemia: acute posthemorrhagic Qualified Code(s): D62 - Acute posthemorrhagic anemia (2) Atrial fibrillation with rapid ventricular response Current Visit: Yes Status: Acute Per cardiology: -KNown atrial fibrillation. -Was on coumadin in outpatient setting. COumadin has been stopped due to severe anemia with hemoglobin 5.2. -Chads 2 vasc score 8 (age, gender, HTN, vascular disease, CVA history). Was previously on coumadin. Unable to give coumadin now due to severe anemia. -ON beta camelia. -Average HR previous 12 hours noted to be 108, atrial fibrillation. -BPs 80-100s systolic. -Echo pending. -Unable to titrate beta camelia due to hypotension. -Suspect tachycardia will improve once hemoglobin improves. (3) Mitral regurgitation Current Visit: Yes Status: Chronic Per cardiology: -KNown MR with echo 10/2015 with moderate-severe MR. -History of Mitral valve replacement. -Echo pending. 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 -Mild pedal edema. Patient states swelling is about baseline. -Echo 10/2015 LVEF 55-60%, atypical septal motion consistent with post operative status, indeterminate diastolic function, moderately dilated RV with normal motion, severely dilated left atrium, moderately dilated right atrium, bioprosthetic MV replacement with struts appear oriented to LVOT, moderate- severe MR, tricuspid valve annuloplasty, mild-moderate tricuspid regurgitation, mild PH, all wall segments with normal motion. -Agree with lasix in between PRBC transfusions as ordered per primary service. -BNP 473. -Will continue to monitor. (5) JT (acute kidney injury) Current Visit: Yes Status: Acute Per cardiology: -Baseline creatinine 0.8-1.2. -Creatinine 2.02. -Management per primary service. (6) CAD (coronary artery disease) Current Visit: No Status: Chronic Per cardiology: -KNown CAD with [facility] 2013 with 30% proximal LAD, 20% proximal circ, 20% mid RCA, 20% PL. -On asa, statin, beta camelia. -Troponin negative. -ECG with no ischemic changes. -Denies chest pain. -Stress 2015 negative for ischemia or infarct. -Will continue to monitor. Qualifiers: Coronary Disease-Associated Artery/Lesion type: [place] artery [place] vs. transplanted heart: [place] heart Associated angina: without angina Qualified Code(s): I25.10 - Atherosclerotic heart disease of [place] coronary artery without angina pectoris Discussion w patient/family: The assessment and plan as outlined above was discussed with the patient and/or family members who expressed understanding and agreement. All questions were answered. Thank you for involving us in the care of your patient. Please call with any questions. Discussed and reviewed with . History of Present Illness Consult date: 12/04/16 Requesting physician: Rose Marie Figueredo Consult reason: a.fib RVR, mitral valve replacement Chief complaint: shortness of breath History of present illness: Ms. Carter is a 81 year old female with a relevant past medical history of hypothyroidism, MR with mitral valve replacement, paroxysmal atrial fibrillation , CVA, hyperlipidemia, rhuematic fever, NEERU, hepatitis, CAD, anemia. Patient presented to [facility] with complaints of increased shortness of breath. Patient was noted to have a hemoglobin of 5.2. Patient was in atrial fibrillation with RVR and cardiology was consulted. Patient denies chest pain. Admits to increased fatigue and increased shortness of breath. Patient denies palpitations/ fluttering. Patient states she feels better today than she did yesterday. Past Med Surg Social Fam HX - Past Medical History Attestation: Yes The following information was validated with the patient. Source: patient, old records reviewed, obtained from family Medical history: atrial fibrillation, CHF, COPD, coronary artery disease, GERD, hepatitis, hypertension, myocardial infarction, thyroid disease, valvular heart disease Psychiatric history: no psych history - Past Surgical History Surgical History: heart valve replacement (mitral), other (mitral and tricuspid valve leaflet repairs 2014) - Social History Smoking Status: Never smoker Smokeless Tobacco Status: No Alcohol use: none Drug use: none - Family History Father Living Status: Hx Family Cardiac Disorders: Yes Mother Family Member Ethnicity: Non- Living Status: Hx Family Cardiac Disorders: Yes Sister Living Status: Still Living Hx Family Cancer: Yes (colon) Hx Family Endocrine Disorder: Yes (DM) Medications and Allergies Aspirin 81 mg PO DAILY 02/14/15 [History] Cholecalciferol (Vitamin D3) [Vitamin D3] 2,000 unit PO DAILY 02/14/15 [History] Docusate Sodium [Colace] 100 mg PO BID PRN 02/14/15 [History] Estradiol [Estrace] 0.5 gm VG 2XW 02/14/15 [History] Iron Polysaccharide Complex [Ferrex 150] 150 mg PO BID 02/14/15 [History] Levothyroxine [Synthroid] 125 mcg PO 0630 02/14/15 [History] Metolazone [Zaroxolyn] 2.5 mg PO Q48H 02/14/15 [History] Metoprolol [Lopressor] 25 mg PO BID 02/14/15 [History] Nitroglycerin 0.4 mg SL Q5MIN PRN 02/14/15 [History] Omeprazole [PriLOSEC] 20 mg PO DAILY 02/14/15 [History] Potassium Chloride 60 meq PO BID 02/14/15 [History] Ranitidine HCl [Zantac] 150 mg PO BID PRN 02/14/15 [History] Rosuvastatin [Crestor] 10 mg PO HS 02/14/15 [History] Ascorbate Calcium [Vitamin C] 500 mg PO DAILY 05/12/16 [History] Ondansetron HCl [Zofran] 4 mg PO TID PRN 05/12/16 [History] Albuterol Neb [Proventil Neb] 2.5 mg IH [id number] #0 inhsol 05/16/16 [Rx] Furosemide [Lasix] 80 mg PO DAILY MDD on hold 12/03/16 [History] Loratadine [Allergy Relief] 10 mg PO DAILY 12/03/16 [History] Oxycodone HCl [Oxaydo] 2.5 - 5 mg PO BID PRN 12/03/16 [History] Oxygen 2 l NS CONT 12/03/16 [History] Warfarin [Coumadin] 2 mg PO DAILY 12/03/16 [History] Allergies Iodinated Contrast- Oral and IV Dye [Iodinated Contrast Media - IV Dye] Allergy (Severe, Verified 02/23/15 14:09) Anaphylaxis iodine Allergy (Severe, Verified 02/23/15 14:09) Anaphylaxis Penicillins Allergy (Severe, Verified 02/23/15 14:09) Swelling of Lip/Tongue/Throat povidone-iodine [From Betadine] Allergy (Severe, Verified 02/23/15 14:09) Anaphylaxis soap [From Betadine] Allergy (Severe, Verified 02/23/15 14:09) Anaphylaxis atorvastatin Allergy (Intermediate, Verified 02/23/15 14:09) Rash Sulfa (Sulfonamide Antibiotics) Allergy (Intermediate, Verified 02/23/15 14:09) Rash bacitracin Allergy (Mild, Verified 02/23/15 14:09) Rash nitrofurantoin [From Macrobid] Allergy (Mild, Verified 02/23/15 14:09) Rash polymyxin B Allergy (Unknown, Verified 02/23/15 14:09) See Comments egg yolk Adverse Reaction (Mild, Verified 02/23/15 14:09) Nausea All Systems Review: A 10-system review of systems was performed and is negative for pertinent findings except as documented above in the HPI. - Cardiovascular Cardiovascular: as per HPI, dyspnea at rest, dyspnea on exertion Physical Examination Vital Signs, Last 4 Hours Temp Pulse Resp BP Pulse Ox 12/04/16 15:29 97.8 F 102 18 104/72 94 12/04/16 13:15 98.2 F 121 19 97/58 99 12/04/16 12:10 16 96 General: Conversant, No Apparent Distress HEENT: Atraumatic, Normocephaly, Mucus Membranes Moist Neck: No JVD, Normal carotid pulses Cardiac: Normal S1 and S2, Other (Irregularly, irregular. Systolic murmur noted. ) Lungs: Normal Breath Sounds, No Wheeze, Rales, Rhonchi Neuro: Alert and responsive, No focal deficits noted Abdomen: Soft, Non-Tender Skin: No rashes noted on visualized skin Musculoskeletal: No Chest Wall Tenderness Extremities: No Clubbing, No Cyanosis, Normal Pulses, Other (Mild bilateral lower extremity pedal edema, non-pitting. ) Results 12/04/16 00:41 12/04/16 00:41 Lab Results Impressions Head CT 12/04/16 11:00 IMPRESSION: No acute intracranial abnormality. Scattered fluid in the left mastoid air cells and middle ear cavity, which can be seen with otomastoiditis. D/ / 12/04/2016 15:38:26 Kirk Joe MD / bcarter Interpreting Provider: Kirk Joe MD Active Medications Aspirin (Aspirin) 81 mg PO DAILY ALINA Stop: 06/05/17 09:01 Docusate Sodium (Colace) 100 mg PO BID PRN; Protocol PRN Reason: Constipation Stop: 06/04/17 18:11 Levalbuterol HCl (Xopenex) 0.63 mg IH [id number] ALINA Stop: 06/05/17 12:01 Last Admin: 12/04/16 12:09 Dose: 0.63 mg Levothyroxine Sodium (Synthroid) 125 mcg PO 0630 ALINA Stop: 06/05/17 06:31 Last Admin: 12/04/16 05:14 Dose: 125 mcg Loratadine (Claritin) 10 mg PO DAILY ALINA PRN Reason: Protocol Stop: 06/05/17 09:01 Last Admin: 12/04/16 07:40 Dose: 10 mg Metoprolol Tartrate (Lopressor) 25 mg PO BID ALINA Stop: 06/04/17 21:01 Last Admin: 12/04/16 07:37 Dose: Not Given Naloxone HCl (Narcan) 0.4 mg IVP Q2MIN PRN PRN Reason: Opioid Reversal Stop: 06/04/17 17:48 Nitroglycerin (Nitroglycerin) 0.4 mg SL Q5MIN PRN PRN Reason: Chest Pain Stop: 06/04/17 18:11 Ondansetron HCl (Zofran) 4 mg IVP Q8HR PRN PRN Reason: Nausea And Vomiting Stop: 06/04/17 17:48 Last Admin: 12/03/16 20:47 Dose: 4 mg Oxycodone HCl (Roxicodone) 5 mg PO Q6HR PRN PRN Reason: Pain Stop: 06/05/17 12:02 Last Admin: 12/04/16 15:47 Dose: 5 mg Pantoprazole Sodium (Protonix) 40 mg IVP Q12HR ALINA Stop: 06/05/17 18:13 Polysaccharide Iron Complex (Ferrex 150) 150 mg PO BID ALINA Stop: 06/04/17 21:01 Last Admin: 12/04/16 07:40 Dose: 150 mg Rosuvastatin Calcium (Crestor) 10 mg PO HS ALINA Stop: 06/04/17 21:01 Last Admin: 12/03/16 20:15 Dose: 10 mg Sodium Cl/Sod Bicarb/Potass Cl/PEG (Nulytely) 4,000 ml PO ONCE ONE PRN Reason: Protocol Stop: 12/04/16 17:01 Laboratory Tests 07/07/16 08/21/16 09/04/16 15:30 09:30 09:20 Hgb INR Potassium Creatinine 1.09 1.16 H 1.22 H Troponin I B-Natriuretic Peptide 12/03/16 12/03/16 12/03/16 13:04 13:04 13:04 Hgb 5.2 L* INR 3.5 Potassium 5.5 H Creatinine 2.14 H Troponin I B-Natriuretic Peptide 12/03/16 12/03/16 12/04/16 13:04 13:04 00:41 Hgb 7.5 L D INR Potassium Creatinine Troponin I 0.01 B-Natriuretic Peptide 473 H 12/04/16 12/04/16 00:41 00:41 Hgb INR 2.6 Potassium 4.5 D Creatinine 2.02 H Troponin I B-Natriuretic Peptide - Imaging and Cardiology Chest Xray: report reviewed Echo: pending, report reviewed - EKG Interpretation EKG results cardiology: personally reviewed (ECG reviewed with atrial fibrillation, HR 123.), other (Telemetry reviewed with average HR 108, atrial fibrillation previous 12 hours. PVCs and couplets noted.) Consult Discharge Plan - Plan Referrals: Grayson Vizcarra MD [Primary Care Provider] - 12/11/16 3:15 pm (your appointment for 12-09-[address] Vizcarra has been cancelled) <Josie Rasheed - Last Filed: 12/05/16 10:12> Date of Encounter: 12/05/16 Assessment and Plan Discussion w patient/family: The assessment and plan as outlined above was discussed with the patient and/or family members who expressed understanding and agreement. All questions were answered. Thank you for involving us in the care of your patient. Please call with any questions. History of Present Illness History of present illness: Ms. Carter is a 81 year old female All Systems Review: A 10-system review of systems was performed and is negative for pertinent findings except as documented above in the HPI. Physical Examination Vital Signs, Last 4 Hours Temp Pulse Resp BP Pulse Ox 12/05/16 09:05 98.0 F 120 18 85/71 95 12/05/16 08:50 97.9 F 129 18 102/64 97 12/05/16 08:40 97.9 F 129 18 102/64 97 12/05/16 07:40 97.9 F 128 102/64 97 12/05/16 07:30 20 98 Results 12/05/16 01:09 12/05/16 01:09 Lab Results 12/04/16 12/05/16 12/05/16 20:58 01:09 01:09 WBC 7.1 7.5 Hgb 8.9 L 8.6 L Hct 30.1 L 28.9 L Plt Count 152 150 INR 2.0 Sodium Potassium Chloride Carbon Dioxide BUN Creatinine Glucose Calcium Magnesium 12/05/16 01:09 WBC Hgb Hct Plt Count INR Sodium 136 Potassium 3.8 Chloride 102 Carbon Dioxide 24 BUN 43 H Creatinine 1.90 H Glucose 114 H Calcium 8.9 Magnesium 2.5 - Attending Attestation I examined this patient and my medical decision-making was reviewed with the DRINK BOX MECHANIC/PA/Advanced Practice Nurse/Resident Physician. I agree with the documented findings, disposition and treatment plan. Ms. Carter presented with acute drop in Hgb, 5.2 on admission and subsequent AF RVR. AFIB is known and was on coumadin in outpatient setting. She was mildly supratherapeutic, INR 3.5. Coumadin is on hold. Patient is being prepped for GI evaluation, EGD/Cscope. Blood count has improved today with 3 units of PRBCs. Recommend giving metoprolol as scheduled. Suspect HR's will improve once underlying etiology is addressed.
[2016-12-04] MEDS ORDERED: Perflutren Lipid Microsphere 1.3 ML in 0.9 % Sodium Chloride 8.7 ML IVP ONE (16:21)
[2016-12-04] MEDS ORDERED: SODIUM CHLORIDE/NAHCO3/KCL/PEG 4,000 ML SOLN.RECON PO ONE (17:00)
--- NOTE | 2016-12-04 17:31 | Electrocardiograph Report ---
[place] [address] Test Date: 2016-12-03 Pat Name: Brianna Carter Department: 105 Room: 2N02 Gender: F Grinding Room Inspector: MARKO : 1935 Requested By: Esdras Pinzon Order Number: [id number] Reading MD: Panchito Soriano Measurements Intervals [place] Rate: 125 P: ID: 0 QRS: 126 QRSD: 97 T: -50 QT: 292 QTc: 366 Interpretive Statements ATRIAL FIBRILLATION WITH RAPID VENTRICULAR RESPONSE RIGHT VENTRICULAR HYPERTROPHY AND ST-T CHANGE INCOMPLETE RBBB Electronically Signed On 12-04-2016 17:29:28 EDT by Panchito Soriano
--- NOTE | 2016-12-04 17:39 | Electrocardiograph Report ---
[address] [address] Test Date: 2016-12-03 Pat Name: Brianna Carter Department: 105 Room: 2N02 Gender: F Director Of Events: MARKO : 1935 Requested By: Esdras Pinzon Order Number: [id number] Reading MD: Panchito Soriano Measurements Intervals [place] Rate: 123 P: FL: 0 QRS: 155 QRSD: 110 T: -30 QT: 293 QTc: 366 Interpretive Statements ATRIAL FIBRILLATION WITH RAPID VENTRICULAR RESPONSE RIGHT VENTRICULAR HYPERTROPHY AND ST-T CHANGE INOMPLETE RBBB Electronically Signed On 12-04-2016 17:37:45 EDT by Panchito Soriano
[2016-12-04] MEDS: Pantoprazole 40 MG VIAL IVP SCH (18:01)
[2016-12-04] MEDS ORDERED: Polyethylene Glycol 3350 255 GM POWDER PO ONE (19:58)
[2016-12-04 21:06] LABS: Basophils # 0.1 K/mcL (0.0-0.2); Basophils % 0.7 %; Eosinophils # 0.4 K/mcL (0.0-0.6); Eosinophils % 5.6 %; Hematocrit 30.1 % (35.3-44.9); Hemoglobin 8.9 g/dL (11.5-15.4); Immature Granulocytes % 0.4 % (0-4); Lymphocytes # 0.7 K/mcL (0.6-4.6); Lymphocytes % 9.7 %; Mean Corpuscular HGB Conc 29.6 g/dL (31.6-35.5); Mean Corpuscular Hemoglobin 20.9 pg (28.0-33.3); Mean Corpuscular Volume 70.7 fL (83.0-100.0); Monocytes # 0.7 K/mcL (0.0-1.3); Monocytes % 10.3 %; Neutrophils # 5.2 K/mcL (1.6-8.9); Nucleated Red Blood Cells 0.4 /100 WBC (0); Platelet Count 152 K/mcL (140-400); Red Blood Count 4.26 M/mcL (3.82-4.97); Red Cell Distribution Width 23.9 % (11.5-14.5); Segmented Neutrophils % 73.3 %
[2016-12-04 21:24] LABS: Anisocytosis 3+ (Not Present); Microcytosis Present (Not Present); Platelet Estimate Normal (Normal); Poikilocytosis 1+ (Not Present); Polychromasia 1+ (Not Present); Schistocytes 1+ (Not Present)
[2016-12-04 21:25] LABS: Hypochromasia Present (Not Present)
[2016-12-05 02:14] LABS: Hemoglobin 8.6 g/dL (11.5-15.4); Segmented Neutrophils % 72.6 %
[2016-12-05 02:16] LABS: Basophils % 0.4 %; Eosinophils # 0.4 K/mcL (0.0-0.6); Eosinophils % 5.2 %; Hematocrit 28.9 % (35.3-44.9); Immature Granulocytes % 0.4 % (0-4); Immature Platelets 5.3 % (1.1-6.1); Lymphocytes % 12.6 %; Mean Corpuscular HGB Conc 29.8 g/dL (31.6-35.5); Mean Corpuscular Hemoglobin 21.2 pg (28.0-33.3); Mean Corpuscular Volume 71.4 fL (83.0-100.0); Monocytes # 0.7 K/mcL (0.0-1.3); Monocytes % 8.8 %; Neutrophils # 5.5 K/mcL (1.6-8.9); Platelet Count 150 K/mcL (140-400); Red Blood Count 4.05 M/mcL (3.82-4.97); Red Cell Distribution Width 24.1 % (11.5-14.5)
[2016-12-05 02:18] LABS: Prothrombin Time 22.3 Seconds (9.4-12.1)
[2016-12-05 02:30] LABS: Calcium 8.9 mg/dL (8.6-10.8); Magnesium 2.5 mg/dL (1.6-2.6); Phosphorous 3.4 mg/dL (2.3-4.7); Potassium 3.8 mEq/L (3.5-4.5)
[2016-12-05 02:58] LABS: Anisocytosis 3+ (Not Present); Hypochromasia Present (Not Present); Macrocytosis Present (Not Present); Platelet Estimate Normal (Normal); Polychromasia 1+ (Not Present)
[2016-12-05 02:59] LABS: Large Platelets Present (Not Present)
[2016-12-05] MEDS ORDERED: *HR* Digoxin 0.5 MG/2 ML AMPUL IVP ONE (04:15)
[2016-12-05] MEDS: Pantoprazole 40 MG VIAL IVP SCH ×2 (04:42→17:25)
[2016-12-05] MEDS: *HR* OxyCODONE Immed Rel 5 MG TABLET PO PRN ×3 (04:42→21:51)
[2016-12-05] MEDS: Levalbuterol Neb 0.63 MG/3 ML IH SCH ×6 (04:44→23:59)
[2016-12-05] MEDS: Iron Polysaccharide Complex 150 MG CAPSULE PO SCH ×2 (08:29→21:51)
[2016-12-05] MEDS: Loratadine 10 MG TABLET PO SCH (08:29)
[2016-12-05] MEDS ORDERED: 0.9 % Sodium Chloride 250 ML ONE (08:45)
[2016-12-05] MEDS ORDERED: *HR* Phenylephrine 10 MG/ML VIAL IVC ONE (08:59)
[2016-12-05] MEDS ORDERED: *HR* Propofol 500 MG/50 ML BOTTLE IVC ONE (08:59)
[2016-12-05] MEDS ORDERED: *HR* Digoxin 0.5 MG/2 ML AMPUL IVP SCH (10:00)
--- NOTE | 2016-12-05 11:08 | Internal Med Progress Note ---
Date of Encounter: 12/05/16 Time of Encounter: 10:20 - Assessment and plan (1) Acute blood loss anemia Current Visit: Yes Status: Acute Assessment and plan: Secondary to GI bleed Hold Coumadin and Aspirin at this time S/p 3unit PRBC transfusions (12/04/16) GI consultation appreciated, scheduled for Colonoscopy today closely monitor H&H patient received 2units FFP this morning for INR reversal prior to colonoscopy NPO at this time, will resume diet as per GI recommendations (2) Acute kidney injury superimposed on chronic kidney disease Current Visit: Yes Status: Acute Assessment and plan: Likely secondary to acute blood loss renal function improving will closely monitor renal function avoid nephrotoxic agents at this time. (3) Atrial fibrillation with rapid ventricular response Current Visit: Yes Status: Acute Assessment and plan: Afib with RVR rate poorly controlled likely secondary to acute blood loss pt clinically stable at this time hold anticoagulation at this time hold ASA at this time awaiting cardiology follow up for better rate control (4) CAD (coronary artery disease) Current Visit: No Status: Chronic Assessment and plan: no signs of angina present at this time hold ASA at this time continue statin restarted BB therapy Qualifiers: Coronary Disease-Associated Artery/Lesion type: [place] artery [place] vs. transplanted heart: [place] heart Associated angina: without angina Qualified Code(s): I25.10 - Atherosclerotic heart disease of [place] coronary artery without angina pectoris (5) Chronic diastolic heart failure Current Visit: Yes Status: Chronic (6) Chronic respiratory failure with hypoxia Current Visit: Yes Status: Chronic Assessment and plan: Secondary to acute blood loss anemia improved since admission continue O2 supplementation as needed (7) COPD (chronic obstructive pulmonary disease) Current Visit: No Status: Chronic Assessment and plan: not in acute exacerbation continue home medications closely monitor O2 saturation Qualifiers: COPD type: unspecified COPD Qualified Code(s): J44.9 - Chronic obstructive pulmonary disease, unspecified (8) Supratherapeutic international normalized ratio (INR) Current Visit: Yes Status: Resolved Assessment and plan: Resolved INR within therapeutic range at this time hold off on anticoagulation at this time 2 FFP given for INR reversal for colonoscopy today (9) DVT prophylaxis Current Visit: Yes Status: Acute Assessment and plan: SCD - Subjective Interval history: Patient is an 81y/o female admitted for acute blood loss anemia and Afib with RVR. Patient seen and examined with daughter present at bedside. Resting in bed and reports of feeling better compared to the previous day. S/P 3unit PRBC transfusion, H&H improved adequately however Afib with rvr rate poorly controlled persists. Cardiology follow up requested. Patient denies any discomfort at this time. - Constitutional Vitals: Temp Pulse Resp BP Pulse Ox 97.9 F 115 18 106/65 97 12/05/16 10:29 12/05/16 10:29 12/05/16 10:29 12/05/16 10:29 12/05/16 10:29 General appearance: Present: cooperative, A&O X 3, pleasant, no acute distress, answers questions appropriately - Head Head exam: Present: atraumatic, normocephalic - Eye Eye exam: Present: normal appearance, conjuntiva pink, sclera anicteric - Respiratory Respiratory exam: Absent: respiratory distress, wheezes - Cardiovascular Cardiovascular exam: Present: irregular rhythm, +S1, +S2, tachycardia - GI/Abdominal GI/Abdominal exam: Present: normal bowel sounds, soft, no peritoneal signs. Absent: distended, tenderness - Extremities Exam Extremities exam: Present: warm, radial pulses palpable and symetrical ( bilateral 1+ pitting edema in LE ). Absent: calf tenderness - Neurological Exam Neurological exam: Present: alert, oriented X3, no focal deficits - Psychiatric Psychiatric exam: Present: normal affect, normal mood Internal Medicine: Result - Labs CBC & Chem 7: 12/05/16 01:09 12/05/16 01:09 Labs: Short CBC 12/04/16 12/05/16 Range/Units 20:58 01:09 WBC 7.1 7.5 (4.3-11.1) K/mcL Hgb 8.9 L 8.6 L (11.5-15.4) g/dL Hct 30.1 L 28.9 L (35.3-44.9) % Plt Count 152 150 (140-400) K/mcL Neutrophils # 5.2 5.5 (1.6-8.9) K/mcL BMP 12/05/16 01:09 Sodium 136 Potassium 3.8 Chloride 102 Carbon Dioxide 24 BUN 43 H Creatinine 1.90 H Glucose 114 H Calcium 8.9 - ABG Interpretation ABG results: PT/INR, D-dimer PT 22.3 Seconds (9.4-12.1) H 12/05/16 01:09 - Impressions Impressions Head CT 12/04/16 11:00 IMPRESSION: No acute intracranial abnormality. Scattered fluid in the left mastoid air cells and middle ear cavity, which can be seen with otomastoiditis. D/ / 12/04/2016 15:38:26 Kirk Joe MD / bcarter Interpreting Provider: Kirk Joe MD Consult Discharge Plan - Plan Referrals: Grayson Vizcarra MD [Primary Care Provider] - 12/11/16 3:15 pm (your appointment for 12-09-[address] Vizcarra has been cancelled)
--- NOTE | 2016-12-05 11:39 | Anesthesia Evaluation PreOp ---
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: Denies Any Significant HX Other Medical History: Renal (ckd) Anesthesia History: No Prior Anesthetic Complications, Past Anesthesia Alcohol Use: none Drug use: none Medications and Allergies Aspirin 81 mg PO DAILY 02/14/15 [History] Cholecalciferol (Vitamin D3) [Vitamin D3] 2,000 unit PO DAILY 02/14/15 [History] Docusate Sodium [Colace] 100 mg PO BID PRN 02/14/15 [History] Estradiol [Estrace] 0.5 gm VG 2XW 02/14/15 [History] Iron Polysaccharide Complex [Ferrex 150] 150 mg PO BID 02/14/15 [History] Levothyroxine [Synthroid] 125 mcg PO 0630 02/14/15 [History] Metolazone [Zaroxolyn] 2.5 mg PO Q48H 02/14/15 [History] Metoprolol [Lopressor] 25 mg PO BID 02/14/15 [History] Nitroglycerin 0.4 mg SL Q5MIN PRN 02/14/15 [History] Omeprazole [PriLOSEC] 20 mg PO DAILY 02/14/15 [History] Potassium Chloride 60 meq PO BID 02/14/15 [History] Ranitidine HCl [Zantac] 150 mg PO BID PRN 02/14/15 [History] Rosuvastatin [Crestor] 10 mg PO HS 02/14/15 [History] Ascorbate Calcium [Vitamin C] 500 mg PO DAILY 05/12/16 [History] Ondansetron HCl [Zofran] 4 mg PO TID PRN 05/12/16 [History] Albuterol Neb [Proventil Neb] 2.5 mg IH [id number] #0 inhsol 05/16/16 [Rx] Furosemide [Lasix] 80 mg PO DAILY MDD on hold 12/03/16 [History] Loratadine [Allergy Relief] 10 mg PO DAILY 12/03/16 [History] Oxycodone HCl [Oxaydo] 2.5 - 5 mg PO BID PRN 12/03/16 [History] Oxygen 2 l NS CONT 12/03/16 [History] Warfarin [Coumadin] 2 mg PO DAILY 12/03/16 [History] Allergies Iodinated Contrast- Oral and IV Dye [Iodinated Contrast Media - IV Dye] Allergy (Severe, Verified 02/23/15 14:09) Anaphylaxis iodine Allergy (Severe, Verified 02/23/15 14:09) Anaphylaxis Penicillins Allergy (Severe, Verified 02/23/15 14:09) Swelling of Lip/Tongue/Throat povidone-iodine [From Betadine] Allergy (Severe, Verified 02/23/15 14:09) Anaphylaxis soap [From Betadine] Allergy (Severe, Verified 02/23/15 14:09) Anaphylaxis atorvastatin Allergy (Intermediate, Verified 02/23/15 14:09) Rash Sulfa (Sulfonamide Antibiotics) Allergy (Intermediate, Verified 02/23/15 14:09) Rash bacitracin Allergy (Mild, Verified 02/23/15 14:09) Rash nitrofurantoin [From Macrobid] Allergy (Mild, Verified 02/23/15 14:09) Rash polymyxin B Allergy (Unknown, Verified 02/23/15 14:09) See Comments egg yolk Adverse Reaction (Mild, Verified 02/23/15 14:09) Nausea - Meds/Allergy Pre-op Review Medications Reviewed: Yes Allergies Reviewed: Yes Beta Blockers on Current Med List: Yes If Beta Blockers taken, Date/Time (Last Dose taken): held due to hypotension Anesthesia Results - Labs 12/05/16 01:09 12/05/16 01:09 - Imaging EKG: report reviewed, image reviewed (AF with RVR, RVH, incomplete RBBB) Additional studies: 12-04-16 TTE: LVEF 60% normal LV size, wall thickness, function atypical septal motion consistent with post-op status indeterminate diastolic function mod dilated RV with mild hypokinesis severely dilated LA bioprosthetic mitral valve appears well seated and demonstrates acceptable function no sign mitral stenosis tricuspid valve annuloplasty noted mild to mod pulm htn estimated RVSP 45-50 mmHg estimated RA pressure is 15-20 mmHg Anesthesia Exam Last Vital Signs Temp 97.9 F 12/05/16 11:13 Pulse 115 12/05/16 11:13 Resp 18 12/05/16 11:13 BP 112/75 12/05/16 11:13 Pulse Ox 100 12/05/16 11:13 Weight: 59 kg - HEENT Pupil (Motor): Pupils equal, EOMI Mallampati: III Teeth: Edentulous Oral Opening: Greater than 3 - 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
--- NOTE | 2016-12-05 11:42 | Cardiology Progress Note ---
Date of Encounter: 12/05/16 Time of Encounter: 09:30 Assessment and Plan (1) Anemia Current Visit: Yes Status: Acute Per cardiology: -Patient with increased shortness of breath. -Hemoglobin 5.2 on amdission. -Has received 3 total units of PRBC. -Gi has been consulted. -PLan for EGD and colonoscopy today. -Management per primary and GI services. -May be contributing to tachycardia. Qualifiers: Anemia type: other cause Other causes of anemia: acute posthemorrhagic Qualified Code(s): D62 - Acute posthemorrhagic anemia (2) Atrial fibrillation with rapid ventricular response Current Visit: Yes Status: Acute Per cardiology: -KNown atrial fibrillation. -Was on coumadin in outpatient setting. COumadin has been stopped due to severe anemia with hemoglobin 5.2. -Chads 2 vasc score 8 (age, gender, HTN, vascular disease, CVA history). Was previously on coumadin. Unable to give coumadin now due to severe anemia. -ON beta camelia. Of note, has not been receiving beta camelia due to hypotension. -Average HR previous 12 hours noted to be 108, atrial fibrillation. -BPs 90-110s systolic. -Echo pending 12/04/16 with LVEF 60%, indeterminate diastolic function, moderately dilated right ventricle with mild hypokinesis, severely dilated left atrium, bioprosthetic mitral valve appears well seated, No MR seen on this exam , no significant mitral stenosis, tricuspid annuloplasty noted, moderate TR, mild to moderate PH, all wall segments with normal motion. -Of note, pateint was given IV digoxin x1 dose last night per primary service. -Unable to titrate beta camelia due to hypotension. Recommend beta camelia be given. -Per discussion with , digoxin was stopped due to renal function. -Suspect tachycardia will improve once hemoglobin improves. (3) Mitral regurgitation Current Visit: Yes Status: Chronic Per cardiology: -KNown MR with echo 10/2015 with moderate-severe MR. -History of Mitral valve replacement. -Echo 12/04/16 with no MR seen. -Will continue to monitor in outpatient setting. 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 -Mild pedal edema. Patient states swelling is about baseline. -Echo 10/2015 LVEF 55-60%, atypical septal motion consistent with post operative status, indeterminate diastolic function, moderately dilated RV with normal motion, severely dilated left atrium, moderately dilated right atrium, bioprosthetic MV replacement with struts appear oriented to LVOT, moderate- severe MR, tricuspid valve annuloplasty, mild-moderate tricuspid regurgitation, mild PH, all wall segments with normal motion. -Echo 12/04/16 as above. -Agree with lasix in between PRBC transfusions as ordered per primary service. -BNP 473. -Will continue to monitor. (5) JT (acute kidney injury) Current Visit: Yes Status: Acute Per cardiology: -Baseline creatinine 0.8-1.2. -Creatinine today 1.9. -digoxin ordered per primary service. DIgoxin was stopped due to renal function. -Management per primary service. (6) CAD (coronary artery disease) Current Visit: No Status: Chronic Per cardiology: -KNown CAD with [facility] 2013 with 30% proximal LAD, 20% proximal circ, 20% mid RCA, 20% PL. -On asa, statin, beta camelia. ASA being held due to anemia. -Troponin negative. -ECG with no ischemic changes. -Denies chest pain. -Stress 2014 negative for ischemia or infarct. -Will continue to monitor. Qualifiers: Coronary Disease-Associated Artery/Lesion type: [place] artery [place] vs. transplanted heart: [place] heart Associated angina: without angina Qualified Code(s): I25.10 - Atherosclerotic heart disease of [place] coronary artery without angina pectoris Discussion w patient/family: The assessment and plan as outlined above was discussed with the patient and/or family members who expressed understanding and agreement. All questions were answered. Thank you for involving us in the care of your patient. Please call with any questions. Discussed and reviewed with . Subjective Principal diagnosis: anemia Interval history: Patient presented to [facility] with complaints of increased shortness of breath. Patient was noted to have a hemoglobin of 5.2, has received 3 units total of PRBC. Patient was in atrial fibrillation with RVR and cardiology was consulted. Patient denies chest pain. Admits to increased fatigue and increased shortness of breath. Patient denies palpitations/fluttering. Patient states she feels better today than she did yesterday. GI has been following patient and plan for EGD/Colonoscopy today. Objective Vital Signs, Last 4 Hours Temp Pulse Resp BP Pulse Ox 12/05/16 11:13 97.9 F 115 18 112/75 100 12/05/16 11:00 97.9 F 116 18 106/65 93 12/05/16 10:29 97.9 F 115 18 106/65 97 12/05/16 10:15 97.9 F 127 18 106/65 94 12/05/16 09:05 98.0 F 120 18 85/71 95 12/05/16 08:50 97.9 F 129 18 102/64 97 12/05/16 08:40 97.9 F 129 18 102/64 97 General: Conversant, No Apparent Distress HEENT: Atraumatic, Normocephaly, Mucus Membranes Moist Neck: No JVD, Normal carotid pulses Cardiac: Normal S1 and S2, Other (Irregularly, irregular. ) Lungs: Normal Breath Sounds, No Wheeze, Rales, Rhonchi Neuro: Alert and responsive, No focal deficits noted Abdomen: Soft, Non-Tender Skin: No rashes noted on visualized skin Musculoskeletal: No Chest Wall Tenderness Extremities: No Clubbing, No Cyanosis, Normal Pulses, Other (MOderate pedal edema noted, non-pitting. ) Results 12/05/16 01:09 12/05/16 01:09 Lab Results Impressions Head CT 12/04/16 11:00 IMPRESSION: No acute intracranial abnormality. Scattered fluid in the left mastoid air cells and middle ear cavity, which can be seen with otomastoiditis. D/ / 12/04/2016 15:38:26 Kirk Joe MD / [email or web address] Interpreting Provider: Kirk Joe MD Active Medications Aspirin (Aspirin) 81 mg PO DAILY [facility] Stop: 06/05/17 09:01 Docusate Sodium (Colace) 100 mg PO BID PRN; Protocol PRN Reason: Constipation Stop: 06/04/17 18:11 Levalbuterol HCl (Xopenex) 0.63 mg IH [id number] [facility] Stop: 06/05/17 12:01 Last Admin: 12/05/16 07:29 Dose: 0.63 mg Levothyroxine Sodium (Synthroid) 125 mcg PO 0630 [facility] Stop: 06/05/17 06:31 Last Admin: 12/05/16 04:42 Dose: 125 mcg Loratadine (Claritin) 10 mg PO DAILY [facility] PRN Reason: Protocol Stop: 06/05/17 09:01 Last Admin: 12/05/16 08:29 Dose: Not Given Metoprolol Tartrate (Lopressor) 25 mg PO BID [facility] Stop: 06/04/17 21:01 Last Admin: 12/05/16 08:29 Dose: Not Given Naloxone HCl (Narcan) 0.4 mg IVP Q2MIN PRN PRN Reason: Opioid Reversal Stop: 06/04/17 17:48 Nitroglycerin (Nitroglycerin) 0.4 mg SL Q5MIN PRN PRN Reason: Chest Pain Stop: 06/04/17 18:11 Ondansetron HCl (Zofran) 4 mg IVP Q8HR PRN PRN Reason: Nausea And Vomiting Stop: 06/04/17 17:48 Last Admin: 12/03/16 20:47 Dose: 4 mg Oxycodone HCl (Roxicodone) 5 mg PO Q6HR PRN PRN Reason: Pain Stop: 06/05/17 12:02 Last Admin: 12/05/16 04:42 Dose: 5 mg Pantoprazole Sodium (Protonix) 40 mg IVP Q12HR [facility] Stop: 06/05/17 18:13 Last Admin: 12/05/16 04:42 Dose: 40 mg Polysaccharide Iron Complex (Ferrex 150) 150 mg PO BID [facility] Stop: 06/04/17 21:01 Last Admin: 12/05/16 08:29 Dose: Not Given Rosuvastatin Calcium (Crestor) 10 mg PO HS [facility] Stop: 06/04/17 21:01 Last Admin: 12/04/16 21:12 Dose: 10 mg Laboratory Tests 07/07/16 08/21/16 09/04/16 15:30 09:30 09:20 Hgb Potassium Creatinine 1.09 1.16 H 1.22 H Magnesium Troponin I B-Natriuretic Peptide 12/03/16 12/03/16 12/03/16 13:04 13:04 13:04 Hgb 5.2 L* Potassium Creatinine 2.14 H Magnesium Troponin I 0.01 B-Natriuretic Peptide 12/03/16 12/05/16 12/05/16 13:04 01:09 01:09 Hgb 8.6 L Potassium 3.8 Creatinine 1.90 H Magnesium 2.5 Troponin I B-Natriuretic Peptide 473 H - Imaging and Cardiology Chest Xray: report reviewed Echo: report reviewed - EKG Interpretation EKG results cardiology: other (Telemetry reviewed with average HR 114, atrial fibrillation. PVCs and couplets noted.) Consult Discharge Plan - Plan Referrals: Grayson Vizcarra MD [Primary Care Provider] - 12/11/16 3:15 pm (your appointment for 12-09-[address] Vizcarra has been cancelled)
[2016-12-05] MEDS ORDERED: 0.9 % Sodium Chloride 1,000 ML IVC SCH (12:45)
--- NOTE | 2016-12-05 15:23 | Event Note ---
Date of Encounter: 12/05/16 Time of Encounter: 14:30 - Cardiology Event Note Pateint re-assessed after endoscopies, no official report to review as of yet. Currently HRs 80-90s. Recommend continuing beta camelia. Patient has follow up appointment with on 12/17/16. Recommend close outpatient follow up. Cardiology will sign off. Re-consult if needed.
--- NOTE | 2016-12-05 17:43 | Event Note ---
Date of Encounter: 12/05/16 Time of Encounter: 15:00 Colonoscopy: Pt with mar polyp in cecum about 4-5 cm in size, flat. Also 3 other polyps in ascending and hepatic flexure upto 1.5 cm in size. Rec; Pt to f/u with GI as oout pt and will discuss the options for removal
[2016-12-06] MEDS: Levalbuterol Neb 0.63 MG/3 ML IH SCH ×6 (03:51→23:09)
[2016-12-06] MEDS: Pantoprazole 40 MG VIAL IVP SCH ×2 (06:09→17:46)
[2016-12-06] MEDS: *HR* OxyCODONE Immed Rel 5 MG TABLET PO PRN ×2 (06:15→20:09)
[2016-12-06 07:17] LABS: INR 1.3; Prothrombin Time 14.4 Seconds (9.4-12.1)
[2016-12-06 07:27] LABS: Magnesium 2.5 mg/dL (1.6-2.6); Phosphorous 3.4 mg/dL (2.3-4.7); Potassium 3.7 mEq/L (3.5-4.5)
[2016-12-06 08:17] LABS: Immature Granulocytes % 0.3 % (0-4); Segmented Neutrophils % 74.6 %
[2016-12-06 08:19] LABS: Basophils % 0.4 %; Eosinophils # 0.5 K/mcL (0.0-0.6); Eosinophils % 6.1 %; Hematocrit 28.7 % (35.3-44.9); Hemoglobin 8.6 g/dL (11.5-15.4); Lymphocytes # 0.7 K/mcL (0.6-4.6); Lymphocytes % 9.5 %; Mean Corpuscular Hemoglobin 21.7 pg (28.0-33.3); Mean Corpuscular Volume 72.3 fL (83.0-100.0); Monocytes # 0.7 K/mcL (0.0-1.3); Monocytes % 9.1 %; Neutrophils # 5.5 K/mcL (1.6-8.9); Platelet Count 162 K/mcL (140-400); Red Blood Count 3.97 M/mcL (3.82-4.97); Red Cell Distribution Width 26.3 % (11.5-14.5)
[2016-12-06] MEDS: Loratadine 10 MG TABLET PO SCH (09:32)
[2016-12-06] MEDS: Iron Polysaccharide Complex 150 MG CAPSULE PO SCH ×2 (09:32→20:09)
[2016-12-06 10:04] LABS: Platelet Estimate Normal (Normal)
[2016-12-06 10:05] LABS: Anisocytosis 1+ (Not Present); Hypochromasia Present (Not Present)
[2016-12-06 10:06] LABS: Microcytosis Present (Not Present)
[2016-12-06 10:07] LABS: Polychromasia 1+ (Not Present)
--- NOTE | 2016-12-06 10:45 | Internal Med Progress Note ---
Date of Encounter: 12/06/16 Time of Encounter: 10:42 - Assessment and plan (1) Acute blood loss anemia Current Visit: Yes Status: Acute Assessment and plan: Secondary to GI bleed Hold Coumadin and Aspirin at this time S/p 3unit PRBC transfusions (12/04/16) GI consultation appreciated, colonoscopy shows large polyps and outpatient follow up recommended H&H stable at this time, no recurrent bleeding reported will continue to closely monitor H&H awaiting PT eval for d/c planning (2) Acute kidney injury superimposed on chronic kidney disease Current Visit: Yes Status: Acute Assessment and plan: Likely secondary to acute blood loss renal function improving will closely monitor renal function avoid nephrotoxic agents at this time. (3) Atrial fibrillation with rapid ventricular response Current Visit: Yes Status: Acute Assessment and plan: Afib with RVR rate poorly controlled likely secondary to acute blood loss pt clinically stable at this time Rate better controlled hold anticoagulation at this time hold ASA at this time lowered BB dose and patient able to tolerate BB at this time will continue to closely monitor cardiology input appreciated (4) CAD (coronary artery disease) Current Visit: No Status: Chronic Assessment and plan: no signs of angina present at this time hold ASA at this time continue statin continue BB therapy Qualifiers: Coronary Disease-Associated Artery/Lesion type: [place] artery [place] vs. transplanted heart: [place] heart Associated angina: without angina Qualified Code(s): I25.10 - Atherosclerotic heart disease of [place] coronary artery without angina pectoris (5) Chronic diastolic heart failure Current Visit: Yes Status: Chronic (6) Chronic respiratory failure with hypoxia Current Visit: Yes Status: Chronic Assessment and plan: Secondary to acute blood loss anemia improved since admission continue O2 supplementation as needed (7) COPD (chronic obstructive pulmonary disease) Current Visit: No Status: Chronic Assessment and plan: not in acute exacerbation continue home medications closely monitor O2 saturation Qualifiers: COPD type: unspecified COPD Qualified Code(s): J44.9 - Chronic obstructive pulmonary disease, unspecified (8) Supratherapeutic international normalized ratio (INR) Current Visit: Yes Status: Resolved Assessment and plan: Resolved s/p 2FFP (9) DVT prophylaxis Current Visit: Yes Status: Acute Assessment and plan: SCD - Subjective Interval history: Patient is an 81y/o female admitted for acute blood loss anemia and Afib with RVR. Patient seen and examined at bedside. Resting in bed and reports of feeling tired this morning. s/p EGD and colonoscopy. Colonoscopy showed large polyps and outpatient follow up recommended. no recurrent bleeding episodes have been reported. Decreased patient's home dose of metoprolol to 25mg PO BID. until now patient has not been able to take BB dose due to labile BP readings. Pt did receive this morning's BB dose. - Constitutional Vitals: Temp Pulse Resp BP Pulse Ox 98.0 F 100 16 100/60 94 12/06/16 04:19 12/06/16 09:40 12/06/16 09:40 12/06/16 09:40 12/06/16 09:40 General appearance: Present: cooperative, A&O X 3, pleasant, no acute distress, answers questions appropriately - Head Head exam: Present: atraumatic, normocephalic - Eye Eye exam: Present: conjuntiva pink, sclera anicteric - Respiratory Respiratory exam: Absent: respiratory distress, wheezes - Cardiovascular Cardiovascular exam: Present: irregular rhythm, +S1, +S2 - GI/Abdominal GI/Abdominal exam: Present: normal bowel sounds, soft, no peritoneal signs. Absent: distended, tenderness - Extremities Exam Extremities exam: Present: warm, radial pulses palpable and symetrical. Absent : calf tenderness (b/l LE edema) - Neurological Exam Neurological exam: Present: alert, oriented X3 - Psychiatric Psychiatric exam: Present: normal affect, normal mood Internal Medicine: Result - Labs CBC & Chem 7: 12/06/16 06:51 12/06/16 06:51 Labs: Short CBC 12/06/16 Range/Units 06:51 WBC 7.3 (4.3-11.1) K/mcL Hgb 8.6 L (11.5-15.4) g/dL Hct 28.7 L (35.3-44.9) % Plt Count 162 (140-400) K/mcL Neutrophils # 5.5 (1.6-8.9) K/mcL BMP 12/06/16 06:51 Sodium 137 Potassium 3.7 Chloride 103 Carbon Dioxide 24 BUN 35 H Creatinine 1.63 H Glucose 92 Calcium 9.0 - ABG Interpretation ABG results: PT/INR, D-dimer PT 14.4 Seconds (9.4-12.1) H 12/06/16 06:51 Consult Discharge Plan - Plan Referrals: Grayson Vizcarra MD [Primary Care Provider] - 12/11/16 3:15 pm (your appointment for 12-09-[address] Vizcarra has been cancelled)
[2016-12-07] MEDS: Levalbuterol Neb 0.63 MG/3 ML IH SCH ×6 (04:20→23:21)
[2016-12-07] MEDS: *HR* OxyCODONE Immed Rel 5 MG TABLET PO PRN ×3 (04:43→23:34)
[2016-12-07] MEDS: Pantoprazole 40 MG VIAL IVP SCH ×2 (06:01→18:30)
[2016-12-07] MEDS: Iron Polysaccharide Complex 150 MG CAPSULE PO SCH ×2 (08:18→20:27)
[2016-12-07] MEDS: Loratadine 10 MG TABLET PO SCH (08:19)
[2016-12-07 08:21] LABS: Eosinophils % 6.6 %
[2016-12-07 08:23] LABS: Basophils % 0.5 %; Eosinophils # 0.4 K/mcL (0.0-0.6); Hematocrit 28.8 % (35.3-44.9); Hemoglobin 8.3 g/dL (11.5-15.4); Immature Granulocytes % 0.2 % (0-4); Immature Platelets 5.5 % (1.1-6.1); Lymphocytes # 0.9 K/mcL (0.6-4.6); Lymphocytes % 14.6 %; Mean Corpuscular HGB Conc 28.8 g/dL (31.6-35.5); Mean Corpuscular Hemoglobin 21.1 pg (28.0-33.3); Mean Corpuscular Volume 73.1 fL (83.0-100.0); Monocytes # 0.7 K/mcL (0.0-1.3); Monocytes % 11.7 %; Neutrophils # 4.1 K/mcL (1.6-8.9); Platelet Count 110 K/mcL (140-400); Red Blood Count 3.94 M/mcL (3.82-4.97); Red Cell Distribution Width 27.1 % (11.5-14.5); Segmented Neutrophils % 66.4 %
[2016-12-07 08:32] LABS: Potassium 3.3 mEq/L (3.5-4.5)
[2016-12-07 08:33] LABS: Calcium 8.4 mg/dL (8.6-10.8); Magnesium 2.4 mg/dL (1.6-2.6); Phosphorous 3.3 mg/dL (2.3-4.7)
[2016-12-07 08:48] LABS: Anisocytosis 1+ (Not Present); Hypochromasia Present (Not Present); Platelet Estimate Slight Decrease (Normal)
--- NOTE | 2016-12-07 10:33 | Internal Med Progress Note ---
Date of Encounter: 12/07/16 Time of Encounter: 10:30 - Assessment and plan (1) Acute blood loss anemia Current Visit: Yes Status: Acute Assessment and plan: Secondary to GI bleed Hold Coumadin and Aspirin at this time S/p 3unit PRBC transfusions (12/04/16) GI consultation appreciated, colonoscopy shows large polyps and outpatient follow up recommended H&H stable at this time, no recurrent bleeding reported will continue to closely monitor H&H will resume ASA 7 days after colonoscopy PT eval recommended ECF, addiction social worker consulted, d/c pending placement (2) Acute kidney injury superimposed on chronic kidney disease Current Visit: Yes Status: Acute Assessment and plan: Likely secondary to acute blood loss renal function improving will closely monitor renal function avoid nephrotoxic agents at this time. (3) Atrial fibrillation with rapid ventricular response Current Visit: Yes Status: Acute Assessment and plan: Afib with RVR rate poorly controlled likely secondary to acute blood loss pt clinically stable at this time Rate better controlled hold anticoagulation at this time hold ASA at this time will continue BB as BP permits will continue to closely monitor cardiology input appreciated (4) CAD (coronary artery disease) Current Visit: No Status: Chronic Assessment and plan: no signs of angina present at this time hold ASA at this time continue statin continue BB therapy Qualifiers: Coronary Disease-Associated Artery/Lesion type: [place] artery [place] vs. transplanted heart: [place] heart Associated angina: without angina Qualified Code(s): I25.10 - Atherosclerotic heart disease of [place] coronary artery without angina pectoris (5) Chronic diastolic heart failure Current Visit: Yes Status: Chronic Assessment and plan: Diuretic therapy on hold given current BP if SBP at 100, will give one time dose of IV diuretic therapy (Lasix 20mg IV) (6) Chronic respiratory failure with hypoxia Current Visit: Yes Status: Chronic Assessment and plan: Secondary to acute blood loss anemia improved since admission continue O2 supplementation as needed (7) COPD (chronic obstructive pulmonary disease) Current Visit: No Status: Chronic Assessment and plan: not in acute exacerbation continue home medications closely monitor O2 saturation Qualifiers: COPD type: unspecified COPD Qualified Code(s): J44.9 - Chronic obstructive pulmonary disease, unspecified (8) Supratherapeutic international normalized ratio (INR) Current Visit: Yes Status: Resolved Assessment and plan: Resolved s/p 2FFP (9) DVT prophylaxis Current Visit: Yes Status: Acute Assessment and plan: SCD (10) Hypokalemia Current Visit: Yes Status: Acute Assessment and plan: K supplemented continue to monitor electrolytes and replace as needed - Subjective Interval history: Patient is an 81y/o female admitted for acute blood loss anemia and Afib with RVR. Patient seen and examined with family present at bedside. Resting comfortably in bed and denies any discomfort at this time. Noted to have an increase in O2 demand. Noted to have diffuse rales on auscultation. Patient has not been able to receive any diuretic therapy given her BP readings. She was unable to receive her last two doses of BB due to her BP readings. Her HR is well controlled at this time. Physical therapy evaluated the patient and STR was recommended. Patient in agreement for STR placement. clinical services consultant contacted and dc pending placement. - Constitutional Vitals: Temp Pulse Resp BP Pulse Ox 98.6 F 82 18 94/46 98 12/07/16 08:01 12/07/16 08:01 12/07/16 08:01 12/07/16 08:01 12/07/16 08:01 General appearance: Present: cooperative, A&O X 3, pleasant, no acute distress, answers questions appropriately - Head Head exam: Present: atraumatic, normocephalic - Eye Eye exam: Present: conjuntiva pink, sclera anicteric - Respiratory Respiratory exam: Absent: respiratory distress, wheezes (diffuse rales ) - Cardiovascular Cardiovascular exam: Present: RRR, +S1, +S2. Absent: diastolic murmur, gallop, rubs, systolic murmur - GI/Abdominal GI/Abdominal exam: Present: normal bowel sounds, soft, no peritoneal signs. Absent: distended, tenderness - Extremities Exam Extremities exam: Present: pedal edema (bilateral LE pitting edema), warm, radial pulses palpable and symetrical. Absent: calf tenderness - Neurological Exam Neurological exam: Present: alert, oriented X3 - Psychiatric Psychiatric exam: Present: normal affect, normal mood Internal Medicine: Result - Labs CBC & Chem 7: 12/07/16 07:53 12/07/16 07:53 Labs: Short CBC 12/07/16 Range/Units 07:53 WBC 6.2 (4.3-11.1) K/mcL Hgb 8.3 L (11.5-15.4) g/dL Hct 28.8 L (35.3-44.9) % Plt Count 110 L (140-400) K/mcL Neutrophils # 4.1 (1.6-8.9) K/mcL BMP 12/07/16 07:53 Sodium 137 Potassium 3.3 L Chloride 102 Carbon Dioxide 26 BUN 30 H Creatinine 1.39 H Glucose 85 Calcium 8.4 L - ABG Interpretation ABG results: PT/INR, D-dimer PT 14.4 Seconds (9.4-12.1) H 12/06/16 06:51 Consult Discharge Plan - Plan Referrals: Grayson Vizcarra MD [Primary Care Provider] - 12/11/16 3:15 pm (your appointment for 12-09-[address] Vizcarra has been cancelled)
[2016-12-07] MEDS ORDERED: Furosemide 20 MG/2 ML VIAL IVP ONE (13:28)
[2016-12-07] MEDS: Ondansetron 4 MG/2 ML VIAL IVP PRN (19:32)
[2016-12-08] MEDS: Levalbuterol Neb 0.63 MG/3 ML IH SCH ×5 (03:58→20:29)
[2016-12-08 04:19] LABS: Calcium 8.2 mg/dL (8.6-10.8); Magnesium 2.2 mg/dL (1.6-2.6); Phosphorous 3.4 mg/dL (2.3-4.7); Potassium 4.1 mEq/L (3.5-4.5)
[2016-12-08 04:35] LABS: Hemoglobin 7.8 g/dL (11.5-15.4)
[2016-12-08 04:37] LABS: Basophils % 0.5 %; Eosinophils # 0.3 K/mcL (0.0-0.6); Eosinophils % 5.7 %; Hematocrit 26.1 % (35.3-44.9); Immature Granulocytes % 0.3 % (0-4); Lymphocytes # 0.9 K/mcL (0.6-4.6); Lymphocytes % 14.8 %; Mean Corpuscular HGB Conc 29.9 g/dL (31.6-35.5); Mean Corpuscular Volume 73.7 fL (83.0-100.0); Monocytes # 0.7 K/mcL (0.0-1.3); Monocytes % 12.2 %; Neutrophils # 3.9 K/mcL (1.6-8.9); Platelet Count 112 K/mcL (140-400); Red Blood Count 3.54 M/mcL (3.82-4.97); Red Cell Distribution Width 27.5 % (11.5-14.5); Segmented Neutrophils % 66.5 %
[2016-12-08 05:14] LABS: Anisocytosis 3+ (Not Present); Microcytosis Present (Not Present)
[2016-12-08 05:15] LABS: Hypochromasia Present (Not Present); Large Platelets Present (Not Present); Platelet Estimate Slight Decrease (Normal); Poikilocytosis 1+ (Not Present); Schistocytes 1+ (Not Present); Target Cells 1+ (Not Present)
[2016-12-08] MEDS: Pantoprazole 40 MG VIAL IVP SCH (05:54)
[2016-12-08] MEDS: *HR* OxyCODONE Immed Rel 5 MG TABLET PO PRN ×2 (05:55→15:37)
[2016-12-08] MEDS: Loratadine 10 MG TABLET PO SCH (08:17)
[2016-12-08] MEDS: Iron Polysaccharide Complex 150 MG CAPSULE PO SCH ×2 (08:18→21:00)
[2016-12-08 09:19] LABS: Hematocrit 28.8 % (35.3-44.9); Hemoglobin 8.5 g/dL (11.5-15.4)
[2016-12-08] MEDS ORDERED: Acetaminophen 325 MG TABLET PO PRN (11:37)
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
--- NOTE | 2016-12-08 14:43 | Cardiology Progress Note ---
Date of Encounter: 12/08/16 Time of Encounter: 14:00 Assessment and Plan (1) Anemia Current Visit: Yes Status: Acute Per cardiology: -Patient with increased shortness of breath. -Hemoglobin 5.2 on amdission. -Has received 3 total units of PRBC. -Gi has been consulted. Patient underwent EGD and colonoscopy. -Management per primary and GI services. -May be contributing to tachycardia. Qualifiers: Anemia type: other cause Other causes of anemia: acute posthemorrhagic Qualified Code(s): D62 - Acute posthemorrhagic anemia (2) Atrial fibrillation with rapid ventricular response Current Visit: Yes Status: Acute Per cardiology: -KNown atrial fibrillation. -Was on coumadin in outpatient setting. COumadin has been stopped due to severe anemia with hemoglobin 5.2. -Chads 2 vasc score 8 (age, gender, HTN, vascular disease, CVA history). Was previously on coumadin. Unable to give coumadin now due to severe anemia. -ON beta camelia. Of note, has not been receiving beta camelia due to hypotension. -Average HR previous 12 hours noted to be 104, atrial fibrillation. -BPs 90-100s systolic. -Echo pending 12/04/16 with LVEF 60%, indeterminate diastolic function, moderately dilated right ventricle with mild hypokinesis, severely dilated left atrium, bioprosthetic mitral valve appears well seated, No MR seen on this exam , no significant mitral stenosis, tricuspid annuloplasty noted, moderate TR, mild to moderate PH, all wall segments with normal motion. -Will decrease beta camelia dose. Recommend beta camelia be given. -Per discussion with , will start digoxin 0.125mg po daily. -Cardiology will sign off. Patient has follow up set with . (3) Mitral regurgitation Current Visit: Yes Status: Chronic Per cardiology: -KNown MR with echo 10/2015 with moderate-severe MR. -History of Mitral valve replacement. -Echo 12/04/16 with no MR seen. -Will continue to monitor in outpatient setting. 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 -Mild pedal edema. Patient states swelling is about baseline. -Echo 10/2015 LVEF 55-60%, atypical septal motion consistent with post operative status, indeterminate diastolic function, moderately dilated RV with normal motion, severely dilated left atrium, moderately dilated right atrium, bioprosthetic MV replacement with struts appear oriented to LVOT, moderate- severe MR, tricuspid valve annuloplasty, mild-moderate tricuspid regurgitation, mild PH, all wall segments with normal motion. -Echo 12/04/16 as above. -BNP 473. -Will continue to monitor in outpatient setting. (5) JT (acute kidney injury) Current Visit: Yes Status: Acute Per cardiology: -Baseline creatinine 0.8-1.2. -Creatinine today 1.33. -Management per primary service. (6) CAD (coronary artery disease) Current Visit: No Status: Chronic Per cardiology: -KNown CAD with [facility] 2013 with 30% proximal LAD, 20% proximal circ, 20% mid RCA, 20% PL. -On asa, statin, beta camelia. ASA being held due to anemia, plan to be re- started in 7 days as ordered per primary service. -Troponin negative. -ECG with no ischemic changes. -Denies chest pain. -Stress 2014 negative for ischemia or infarct. -Will continue to monitor in outpatient setting. Qualifiers: Coronary Disease-Associated Artery/Lesion type: [place] artery [place] vs. transplanted heart: [place] heart Associated angina: without angina Qualified Code(s): I25.10 - Atherosclerotic heart disease of [place] coronary artery without angina pectoris Discussion w patient/family: The assessment and plan as outlined above was discussed with the patient and/or family members who expressed understanding and agreement. All questions were answered. Thank you for involving us in the care of your patient. Please call with any questions. Discussed and reviewed with . Subjective Principal diagnosis: anemia Interval history: Patient presented to [facility] with complaints of increased shortness of breath. Patient was noted to have a hemoglobin of 5.2, has received 3 units total of PRBC. Patient was in atrial fibrillation with RVR and cardiology was consulted. Patient denies chest pain. Admits to increased fatigue and increased shortness of breath. Patient denies palpitations/fluttering. Patient underwent EGD and colonoscopy. Patient denies active bleeding or blood loss. Patient states she feels much better and she is plannign discharge to [facility] for rehab. Objective Vital Signs, Last 4 Hours Temp Pulse Resp BP Pulse Ox 12/08/16 14:24 97.4 F L 102 16 88/56 99 12/08/16 11:50 14 98 12/08/16 11:47 116 12/08/16 11:22 97.5 F L 110 14 91/57 98 General: Conversant, No Apparent Distress HEENT: Atraumatic, Normocephaly, Mucus Membranes Moist Neck: No JVD, Normal carotid pulses Cardiac: Other (Irregularly, irregular) Lungs: Normal Breath Sounds, No Wheeze, Rales, Rhonchi Neuro: Alert and responsive, No focal deficits noted Abdomen: Soft, Non-Tender Skin: No rashes noted on visualized skin Musculoskeletal: No Chest Wall Tenderness Extremities: No Clubbing, No Cyanosis, Normal Pulses, Other (Mild bilateral pedal edema noted. ) Results 12/08/16 09:11 12/08/16 03:48 Lab Results Impressions Head CT 12/04/16 11:00 IMPRESSION: No acute intracranial abnormality. Scattered fluid in the left mastoid air cells and middle ear cavity, which can be seen with otomastoiditis. D/ / 12/04/2016 15:38:26 Kirk Joe MD / bcarter Interpreting Provider: Kirk Joe MD Active Medications Acetaminophen (Tylenol) 650 mg PO Q6HR PRN PRN Reason: Mild Pain Stop: 06/09/17 11:38 Last Admin: 12/08/16 13:13 Dose: 650 mg Aspirin (Aspirin) 81 mg PO DAILY [facility] Stop: 06/05/17 09:01 Digoxin (Lanoxin) 0.125 mg PO DAILY [facility] Stop: 06/09/17 14:46 Docusate Sodium (Colace) 100 mg PO BID PRN; Protocol PRN Reason: Constipation Stop: 06/04/17 18:11 Levalbuterol HCl (Xopenex) 0.63 mg IH [id number] [facility] Stop: 06/05/17 12:01 Last Admin: 12/08/16 11:47 Dose: 0.63 mg Levothyroxine Sodium (Synthroid) 125 mcg PO 0630 [facility] Stop: 06/05/17 06:31 Last Admin: 12/08/16 05:55 Dose: 125 mcg Loratadine (Claritin) 10 mg PO DAILY ALINA PRN Reason: Protocol Stop: 06/05/17 09:01 Last Admin: 12/08/16 08:17 Dose: 10 mg Metoprolol Tartrate (Lopressor) 12.5 mg PO BID [facility] Stop: 06/09/17 21:01 Naloxone HCl (Narcan) 0.4 mg IVP Q2MIN PRN PRN Reason: Opioid Reversal Stop: 06/04/17 17:48 Nitroglycerin (Nitroglycerin) 0.4 mg SL Q5MIN PRN PRN Reason: Chest Pain Stop: 06/04/17 18:11 Omeprazole (Prilosec) 20 mg PO DAILY@0730 [facility] Stop: 06/10/17 07:31 Ondansetron HCl (Zofran) 4 mg IVP Q8HR PRN PRN Reason: Nausea And Vomiting Stop: 06/04/17 17:48 Last Admin: 12/07/16 19:32 Dose: 4 mg Oxycodone HCl (Roxicodone) 5 mg PO Q6HR PRN PRN Reason: Severe Pain Stop: 06/05/17 12:02 Last Admin: 12/08/16 05:55 Dose: 5 mg Polysaccharide Iron Complex (Ferrex 150) 150 mg PO BID [facility] Stop: 06/04/17 21:01 Last Admin: 12/08/16 08:18 Dose: 150 mg Rosuvastatin Calcium (Crestor) 10 mg PO HS [facility] Stop: 06/04/17 21:01 Last Admin: 12/07/16 20:27 Dose: 10 mg Laboratory Tests 12/08/16 12/08/16 03:48 03:48 Hgb 7.8 L Plt Count 112 L Potassium 4.1 Creatinine 1.33 H Magnesium 2.2 - Imaging and Cardiology Chest Xray: report reviewed Echo: report reviewed - EKG Interpretation EKG results cardiology: other (Telemetry reviewed with average HR previous 12 hours noted to be 104, atrial fibrillation. PVCs and couplets noted.) Consult Discharge Plan - Plan Referrals: Grayson Vizcarra MD [Primary Care Provider] - (PATIENT IS GOING TO [facility], NO PCP APPOINTMENT NEEDED)
[2016-12-08] MEDS: *HR* Digoxin 0.125 MG TABLET PO SCH (15:35)
[2016-12-09] MEDS: Levalbuterol Neb 0.63 MG/3 ML IH SCH ×4 (00:09→11:03)
[2016-12-09] MEDS: *HR* OxyCODONE Immed Rel 5 MG TABLET PO PRN ×2 (00:22→06:47)
[2016-12-09 05:15] LABS: Basophils % 0.5 %; Hemoglobin 7.6 g/dL (11.5-15.4); Immature Granulocytes % 0.2 % (0-4)
[2016-12-09 05:16] LABS: Eosinophils # 0.4 K/mcL (0.0-0.6); Eosinophils % 7.8 %; Hematocrit 26.4 % (35.3-44.9); Immature Platelets 4.8 % (1.1-6.1); Lymphocytes # 0.9 K/mcL (0.6-4.6); Lymphocytes % 15.5 %; Mean Corpuscular HGB Conc 28.8 g/dL (31.6-35.5); Mean Corpuscular Hemoglobin 21.3 pg (28.0-33.3); Mean Corpuscular Volume 74.2 fL (83.0-100.0); Monocytes # 0.7 K/mcL (0.0-1.3); Neutrophils # 3.5 K/mcL (1.6-8.9); Red Blood Count 3.56 M/mcL (3.82-4.97); Red Cell Distribution Width 27.9 % (11.5-14.5)
[2016-12-09 05:32] LABS: Calcium 8.3 mg/dL (8.6-10.8); Magnesium 2.3 mg/dL (1.6-2.6); Phosphorous 3.4 mg/dL (2.3-4.7)
[2016-12-09 05:55] LABS: Platelet Count 81 K/mcL (140-400)
[2016-12-09 05:57] LABS: Anisocytosis 2+ (Not Present); Platelet Estimate Marked Decrease (Normal); Poikilocytosis 2+ (Not Present); Polychromasia 1+ (Not Present)
[2016-12-09] MEDS: Iron Polysaccharide Complex 150 MG CAPSULE PO SCH (07:34)
[2016-12-09] MEDS: *HR* Digoxin 0.125 MG TABLET PO SCH (07:34)
[2016-12-09] MEDS: Loratadine 10 MG TABLET PO SCH (07:34)
--- NOTE | 2016-12-09 08:55 | Discharge Summary ---
Date of Encounter: 12/09/16 Time of Encounter: 08:50 - Discharge Diagnosis (1) Anemia Priority: Primary Status: Acute Qualifiers: Anemia type: other cause Other causes of anemia: acute posthemorrhagic Qualified Code(s): D62 - Acute posthemorrhagic anemia (2) Supratherapeutic international normalized ratio (INR) Priority: Primary Status: Resolved (3) JT (acute kidney injury) Priority: Secondary Status: Acute - Discharge Medications Prescriptions: Digoxin [Lanoxin] 0.125 mg PO DAILY #30 tablet Metoprolol [Lopressor] 12.5 mg PO BID #60 tablet Home Medications: Cholecalciferol (Vitamin D3) [Vitamin D3] 2,000 unit PO DAILY 02/14/15 [History] Docusate Sodium [Colace] 100 mg PO BID PRN 02/14/15 [History] Estradiol [Estrace] 0.5 gm VG 2XW 02/14/15 [History] Iron Polysaccharide Complex [Ferrex 150] 150 mg PO BID 02/14/15 [History] Levothyroxine [Synthroid] 125 mcg PO 0630 02/14/15 [History] Nitroglycerin 0.4 mg SL Q5MIN PRN 02/14/15 [History] Omeprazole [PriLOSEC] 20 mg PO DAILY 02/14/15 [History] Ranitidine HCl [Zantac] 150 mg PO BID PRN 02/14/15 [History] Rosuvastatin [Crestor] 10 mg PO HS 02/14/15 [History] Ascorbate Calcium [Vitamin C] 500 mg PO DAILY 05/12/16 [History] Ondansetron HCl [Zofran] 4 mg PO TID PRN 05/12/16 [History] Albuterol Neb [Proventil Neb] 2.5 mg IH [id number] #0 inhsol 05/16/16 [Rx] Loratadine [Allergy Relief] 10 mg PO DAILY 12/03/16 [History] Oxycodone HCl [Oxaydo] 2.5 - 5 mg PO BID PRN 12/03/16 [History] Oxygen 2 l NS CONT 12/03/16 [History] Digoxin [Lanoxin] 0.125 mg PO DAILY #30 tablet 12/09/16 [Rx] Metoprolol [Lopressor] 12.5 mg PO BID #60 tablet 12/09/16 [Rx] Allergies/Adverse Reactions: Allergies Iodinated Contrast- Oral and IV Dye [Iodinated Contrast Media - IV Dye] Allergy (Severe, Verified 02/23/15 14:09) Anaphylaxis iodine Allergy (Severe, Verified 02/23/15 14:09) Anaphylaxis Penicillins Allergy (Severe, Verified 02/23/15 14:09) Swelling of Lip/Tongue/Throat povidone-iodine [From Betadine] Allergy (Severe, Verified 02/23/15 14:09) Anaphylaxis soap [From Betadine] Allergy (Severe, Verified 02/23/15 14:09) Anaphylaxis atorvastatin Allergy (Intermediate, Verified 02/23/15 14:09) Rash Sulfa (Sulfonamide Antibiotics) Allergy (Intermediate, Verified 02/23/15 14:09) Rash bacitracin Allergy (Mild, Verified 02/23/15 14:09) Rash nitrofurantoin [From Macrobid] Allergy (Mild, Verified 02/23/15 14:09) Rash polymyxin B Allergy (Unknown, Verified 02/23/15 14:09) See Comments egg yolk Adverse Reaction (Mild, Verified 02/23/15 14:09) Nausea Procedures/tests Complete & Pending: Procedures Performed prior 72 hours Category Date Time Status MR head/brain wo con [MR] Routine MRI 12/08/16 12:48 Completed Date of admission: 12/03/16 14:23 Primary care physician: Grayson Vizcarra MD Consults: 12/03/16 16:22 Consult to Gastroenterology [CONS] Stat Consulting Provider: Gastroenterology Isabella Reason for Consult: acute GI bleed anemia Time Notified: 15:30 Call Completed: No 12/04/16 14:27 Consult to Cardiology [CONS] Routine Comment: Consulting Provider: Cardiology Isabella Reason for Consult: AFIB RVR, mitral valve replaced Time Notified: 14:28 Call Completed: Yes 12/05/16 14:19 Consult to Physical Therapy [CONS] Routine Comment: Evaluate, develop and implement POC Reason for Consult: weakness, possible ECF needs OT [Consult to Occupational Therapy] [CONS] Routine Comment: Evaluate, develop and implement POC Reason for Consult: weakness 12/05/16 19:09 Consult to Vinyl Flooring Installer [CONS] Routine Reason for SW Consult: May need ECF placement Discharging clinician: Elyse Dos Santos Anticipated date of discharge: 12/09/16 - Patient Status Disposition: Transfer SNF Condition: Fair Functional capacity at discharge: uses cane/walker Overall status at discharge: patient is back to baseline - Discharge Instructions Instructions: Metoprolol (By mouth), Digoxin (By mouth), Atrial Fibrillation ( DC), Anemia (GEN) Follow Up With: Grayson Vizcarra MD [Primary Care Provider] - ([facility] NO [facility]POINTMENT NEEDED) - Diet and Activity Activity: as per physical therapy Diet: advance to your usual diet Interval History: Ms. Carter is a 81 year old female with a relevant past medical history of hypothyroidism, MR with mitral valve replacement, paroxysmal atrial fibrillation , CVA, hyperlipidemia, rhuematic fever, NEERU, hepatitis, CAD, anemia. Patient presented to [facility] with complaints of increased shortness of breath. Patient was noted to have a hemoglobin of 5.2. Patient was in atrial fibrillation with RVR and cardiology was consulted. Was on coumadin in outpatient setting. COumadin has been stopped due to severe anemia with hemoglobin 5.2. -Chads 2 vasc score 8 (age, gender, HTN, vascular disease, CVA history). Was previously on coumadin. Unable to give coumadin now due to severe anemia. asa was also held due to low plt count. -ON beta camelia. Echo 12/04/16 with LVEF 60%, indeterminate diastolic function, moderately dilated right ventricle with mild hypokinesis, severely dilated left atrium, bioprosthetic mitral valve appears well seated, No MR seen on this exam, no significant mitral stenosis, tricuspid annuloplasty noted, moderate TR, mild to moderate PH, all wall segments with normal motion. advised to decrease beta camelia dose as per cardiology. Recommend beta camelia be given. -Per discussion with , started digoxin 0.125mg po daily. GI was consulted , underwent EGD that showed gastric petechiae which was tretaed with APC. h/h remained stable, deneis any hematochezia or subha. bieng dc to rehab in stable condition adn will repeat cbc in a week adn f/u with pcp as OP. Hospital course: Ms. Carter is a 81 year old female - Time Spent with Patient Total time spent providing and/or coordinating discharge services: - Constitutional Vitals: Temp Pulse Resp BP Pulse Ox 97.7 F 95 16 112/51 97 12/09/16 07:17 12/09/16 07:17 12/09/16 07:48 12/09/16 07:17 12/09/16 07:48 General appearance: Present: cooperative, A&O X 3, pleasant, no acute distress, answers questions appropriately Exam: HEENT: Atraumatic, Normocephaly, Mucus Membranes Moist Neck: No JVD, Normal carotid pulses Cardiac: Other (Irregularly, irregular) Lungs: Normal Breath Sounds, No Wheeze, Rales, Rhonchi Neuro: Alert and responsive, No focal deficits noted Abdomen: Soft, Non-Tender Skin: No rashes noted on visualized skin Musculoskeletal: No Chest Wall Tenderness Extremities: No Clubbing, No Cyanosis, Normal Pulses, Other (Mild bilateral pedal edema noted. )
--- NOTE | 2016-12-09 09:47 | Physician Discharge Referral ---
ExtendedCare Referral Info Transfer To: F Provider in Charge: sarkis adan Institutional Level of Care: Intermediate - Diagnosis (1) Anemia Status: Acute (2) Supratherapeutic international normalized ratio (INR) Status: Resolved (3) JT (acute kidney injury) Status: Acute - Transfer Medications Prescriptions: Digoxin [Lanoxin] 0.125 mg PO DAILY #30 tablet Metoprolol [Lopressor] 12.5 mg PO BID #60 tablet Home Medications: Cholecalciferol (Vitamin D3) [Vitamin D3] 2,000 unit PO DAILY 02/14/15 [History] Docusate Sodium [Colace] 100 mg PO BID PRN 02/14/15 [History] Estradiol [Estrace] 0.5 gm VG 2XW 02/14/15 [History] Iron Polysaccharide Complex [Ferrex 150] 150 mg PO BID 02/14/15 [History] Levothyroxine [Synthroid] 125 mcg PO 0630 02/14/15 [History] Nitroglycerin 0.4 mg SL Q5MIN PRN 02/14/15 [History] Omeprazole [PriLOSEC] 20 mg PO DAILY 02/14/15 [History] Ranitidine HCl [Zantac] 150 mg PO BID PRN 02/14/15 [History] Rosuvastatin [Crestor] 10 mg PO HS 02/14/15 [History] Ascorbate Calcium [Vitamin C] 500 mg PO DAILY 05/12/16 [History] Ondansetron HCl [Zofran] 4 mg PO TID PRN 05/12/16 [History] Albuterol Neb [Proventil Neb] 2.5 mg IH [id number] #0 inhsol 05/16/16 [Rx] Loratadine [Allergy Relief] 10 mg PO DAILY 12/03/16 [History] Oxycodone HCl [Oxaydo] 2.5 - 5 mg PO BID PRN 12/03/16 [History] Oxygen 2 l NS CONT 12/03/16 [History] Digoxin [Lanoxin] 0.125 mg PO DAILY #30 tablet 12/09/16 [Rx] Metoprolol [Lopressor] 12.5 mg PO BID #60 tablet 12/09/16 [Rx] Allergies/Adverse Reactions: Allergies Iodinated Contrast- Oral and IV Dye [Iodinated Contrast Media - IV Dye] Allergy (Severe, Verified 02/23/15 14:09) Anaphylaxis iodine Allergy (Severe, Verified 02/23/15 14:09) Anaphylaxis Penicillins Allergy (Severe, Verified 02/23/15 14:09) Swelling of Lip/Tongue/Throat povidone-iodine [From Betadine] Allergy (Severe, Verified 02/23/15 14:09) Anaphylaxis soap [From Betadine] Allergy (Severe, Verified 02/23/15 14:09) Anaphylaxis atorvastatin Allergy (Intermediate, Verified 02/23/15 14:09) Rash Sulfa (Sulfonamide Antibiotics) Allergy (Intermediate, Verified 02/23/15 14:09) Rash bacitracin Allergy (Mild, Verified 02/23/15 14:09) Rash nitrofurantoin [From Macrobid] Allergy (Mild, Verified 02/23/15 14:09) Rash polymyxin B Allergy (Unknown, Verified 02/23/15 14:09) See Comments egg yolk Adverse Reaction (Mild, Verified 02/23/15 14:09) Nausea - Respiratory Orders Oxygen / L per min (2l) Smoking Cessation: Smoking cessation has been advised. For more information, call the [place] Tobacco Quit Line at 3-267-HRQB-NOW. - Lab Orders Lab Orders: CBC (in 1 week) - Advance Directives Code Status: DNR-Arrest/Don't Intubate - Mobility Orders Chair, Ambulate - Rehabiliation Orders Rehab Potential: Fair Rehab Orders: Evaluation for Physical Therapy, Evaluation for Occupational Therapy - Diet Orders Regular CERTIFICATION: I certify that the transfer of the above named patient to an Extended Care Facility is necessary for the continuing treatment of the diagnosis listed. The above information is true and accurate reflection of patient's current condition. Confidential - Redisclosure prohibited without a patient's written consent.
[2016-12-09 11:13] VITALS: BP 108/51
[2016-12-09] MEDS: Ondansetron 4 MG/2 ML VIAL IVP PRN (11:40)
== END 2016-12-09 13:26 | DRG 812 ==
LOC: EMEROO 12:27 → 2NNU 14:23
PROVIDERS: ADMIT Internal Medicine; ATTEND Internal Medicine

== ENCOUNTER 2017-01-20 16:40 | Inpatient (IN) ==
--- NOTE | 2017-01-20 17:03 | Emergency Department Note ---
Disposition Clinical Impression: Generalized weakness, Acute electrocardiogram changes, Pleural effusion, Acute exacerbation of CHF (congestive heart failure) Nasal bone fractures Qualifiers: Encounter type: initial encounter Fracture type: closed Qualified Code(s): S02.2XXA - Fracture of nasal bones, initial encounter for closed fracture Anemia Qualifiers: Anemia type: unspecified type Qualified Code(s): D64.9 - Anemia, unspecified Disposition: Admitted As Inpatient Condition: Fair Time of Disposition: 18:53 Fall HPI - General Chief Complaint: ED Fall Stated Complaint: Fall Time Seen by Provider: 01/20/17 16:45 Source: patient, EMS Mode of arrival: EMS Limitations: no limitations, age Nursing Notes Reviewed: Yes Vital Signs Reviewed: Yes - History of Present Illness HPI Narrative: 81-year-old female history of atrial fibrillation, GERD, CK D, CAD, CABG, MVR, CVA, hypercholesterolemia, TIA, hyperlipidemia, CHF, anemia, presents status post mechanical fall she was in bleeding with her walker to the bathroom just prior to arrival, she lost her balance, tripped and landed face planning into the ground, she is for a 10 pain in her face, says aching. She states that she had no loss of consciousness, she is currently not on anticoagulation secondary to her recent GI bleed. She was previously on Coumadin. She is also told that she was anemic with a hemoglobin in the 7 range. She denies chest pain lightheadedness or near-syncope prior to the fall. Also states that she landed on her left knee and has had difficulty weightbearing secondary to left knee pain. +Injury to nasal bridge, Cut lip and tongue. Pt Subjective Complaint: fall Onset (ago): Just [employer] Fall From: standing Fall Witnessed: yes Place Fall Occurred: home Loss of Consciousness: none Prolonged Down Time?: no Symptoms Prior to Fall: none Context: tripped/slipped Location of injury - extremities: Left: knee Severity: moderate Severity scale (1-10): 4 Associated symptoms (after fall): Reports: headache, neck pain - Related Data Home Medications Medication Instructions Recorded Confirmed Cholecalciferol (Vitamin D3) 2,000 unit PO DAILY 02/14/15 01/20/17 [Vitamin D3] Docusate Sodium [Colace] 100 mg PO BID PRN 02/14/15 01/20/17 Estradiol [Estrace] 0.5 gm VG 2XW 02/14/15 01/20/17 Iron Polysaccharide Complex 150 mg PO BID 02/14/15 01/20/17 [Ferrex 150] Levothyroxine [Synthroid] 125 mcg PO 0630 02/14/15 01/20/17 Nitroglycerin 0.4 mg SL Q5MIN PRN 02/14/15 01/20/17 Omeprazole [PriLOSEC] 20 mg PO DAILY 02/14/15 01/20/17 Ranitidine HCl [Zantac] 150 mg PO BID PRN 02/14/15 01/20/17 Rosuvastatin [Crestor] 10 mg PO HS 02/14/15 01/20/17 Ascorbate Calcium [Vitamin C] 500 mg PO DAILY 05/12/16 01/20/17 Ondansetron HCl [Zofran] 4 mg PO TID PRN 05/12/16 01/20/17 Loratadine [Allergy Relief] 10 mg PO DAILY 12/03/16 01/20/17 Oxygen 2 l NS CONT 12/03/16 01/20/17 Aspirin Enteric Coated [Aspirin EC] 81 mg PO DAILY 01/20/17 01/20/17 Furosemide [Lasix] 20 mg PO QPM 01/20/17 01/20/17 Furosemide [Lasix] 40 mg PO QAM 01/20/17 01/20/17 Potassium Chloride [K-Tab ER] 20 meq PO BID 01/20/17 01/20/17 metOLazone [Zaroxolyn] 2.5 mg PO Q48H 01/20/17 01/20/17 Previous Rx's Medication Instructions Recorded Albuterol Neb [Proventil Neb] 2.5 mg IH [id number] #0 inhsol 05/16/16 Digoxin [Lanoxin] 0.125 mg PO DAILY #30 tablet 12/09/16 Metoprolol [Lopressor] 12.5 mg PO BID #60 tablet 12/09/16 Omeprazole [PriLOSEC] 20 mg PO DAILY@0630 #30 01/24/17 OxyCODONE Immed Rel [Roxicodone 5 5 mg PO Q6HR PRN #25 tab 01/24/17 MG] levoFLOXacin [Levofloxacin] 250 mg PO DAILY #7 tablet 01/24/17 Allergies Allergy/AdvReac Type Severity Reaction Status Date / Time Iodinated Contrast- Oral and Allergy Severe Anaphylaxis Verified 02/23/15 14:09 IV Dye [Iodinated Contrast Media - IV Dye] iodine Allergy Severe Anaphylaxis Verified 02/23/15 14:09 Penicillins Allergy Severe Swelling Verified 02/23/15 14:09 of Lip/Tongue/Throat povidone-iodine Allergy Severe Anaphylaxis Verified 02/23/15 14:09 [From Betadine] soap [From Betadine] Allergy Severe Anaphylaxis Verified 02/23/15 14:09 atorvastatin Allergy Intermediate Rash Verified 02/23/15 14:09 Sulfa (Sulfonamide Allergy Intermediate Rash Verified 02/23/15 14:09 Antibiotics) bacitracin Allergy Mild Rash Verified 02/23/15 14:09 nitrofurantoin Allergy Mild Rash Verified 02/23/15 14:09 [From Macrobid] polymyxin B Allergy Unknown See Verified 02/23/15 14:09 Comments egg yolk AdvReac Mild Nausea Verified 02/23/15 14:09 All systems ED: reviewed and negative except as stated. Review of Systems: As Per HPI Constitutional: Denies: fever, weakness Eyes: Denies: eye pain ENT ED: Denies: ear pain Cardiovascular: Denies: chest pain Respiratory: Denies: cough Gastrointestinal: Denies: abdominal pain Genitourinary: Denies: urgency Musculoskeletal: Reports: as per HPI, joint swelling (L Knee), arthralgia, other (Face Pain). Denies: back pain, neck pain Integumentary: Reports: as per HPI, lesions Neurological: Reports: as per HPI, headache. Denies: weakness, numbness Psychiatric: Denies: anxiety Hematological/Lymphatic: Reports: as per HPI, easy bleeding, easy bruising Fall PMH - Past Medical History Medical history: Reports: atrial fibrillation, CHF, COPD, coronary artery disease, GERD, hepatitis, hypertension, myocardial infarction, osteoporosis, thyroid disease, valvular heart disease Surgical history: Reports: heart valve replacement (mitral), other (mitral and tricuspid valve leaflet repairs 2014) Psychiatric history: Reports: no psych history - Social History Smoking Status: Never smoker Alcohol use: Reports: none Drug use: Reports: none Physical Exam Airway patent, nasal bridge deformity B breathing bilateral breath sounds C +2 radial pulses, +2 dorsalis pedis pulse Constitutional: Elderly female, appears somewhat disoriented, otherwise GCS of 15 vital signs stable. Eyes: PERRLA, sclera anicteric ENT & Mouth: nasal bridge deformity with 1cm laceration. linear noncomplicated, small laceration to the lip with no penetration of vermilion border, uncomplicated. Less than 0.5 cm Neck: normal inspection, neck is supple Resp: CTA bilaterally, no resp distress CV: RRR, no m/g/r GI: normal inspection, soft, no guarding or rigidity Back: normal inspection, no tenderness to palpation Neuro: A&O3, CNII-XII grossly intact, AVILA MSK: Limit range of motion of the bilateral lower extremities, left knee tender to palpation with no ecchymosis or bruising, negative drawer testing. Skin: on limited exam, skin intact with no rashes or lesions - General Limitations: no limitations General appearance: alert, in no apparent distress Course Course Narrative: 81-year-old female status post mechanical fall, given recent anemia and previous GI bleed and warfarin use, will get type and screen CBC BMP, head CT with cervical spine and maxillofacial, I strongly suspect nasal fractures, the linear laceration on her nose with equal approximate well with Dermabond, after cleaning, or lip lacerations are equal approximate and heel without sutures. Likely she will be admitted admission, as such she may be anemic but denies any hematochezia or melena at this time, as x-ray EKG as well reassess left knee film given tenderness, no gross Deformity - Reevaluation(s) Reevaluation #1: Patient's wound was approximated with skin glue after extensive irrigation, linear incision, patient has bilateral nasal fractures, right pleural effusion consistent with previous pleural effusion in November, she also has elevated BNP, no elevation in troponin, concern for worsening heart failure, leading to swollen extremities causing her fall, given multiple comorbidities generalized weakness also home, plan admit hospitalist. Time: 19:11 Reevaluation #2: Daniela Nurse practitioner accepted the patient for admission Time: 19:11 Vital Signs Temperature 98.1 F 01/20/17 16:42 Pulse Rate 63 01/20/17 16:42 Respiratory Rate 18 01/20/17 16:42 Blood Pressure 150/81 01/20/17 16:42 O2 Sat by Pulse Oximetry 95 01/20/17 16:42 Temperature 97.8 F 01/24/17 07:08 Pulse Rate 71 01/24/17 07:08 Respiratory Rate 20 01/24/17 11:35 Blood Pressure 138/51 01/24/17 07:08 O2 Sat by Pulse Oximetry 93 01/24/17 11:35 Oxygen Delivery Oxygen Delivery Nasal Cannula Procedures - Laceration Laceration 1 Site: face Side (If applicable): left Size (cm): 1 Description: linear Depth: simple, single layer Pre-repair: wound explored, irrigated extensively Skin layer closed with: skin glue Fall - Differential Diagnosis Likely: syncope, traumatic injury, arrhythmia - Medical Records Medical records reviewed: Yes I reviewed the patient's medical records. - Lab Data Lab results reviewed: Yes I reviewed the patient's lab results. Result diagrams: 01/24/17 04:14 01/24/17 04:14 Lab Results 01/20/17 01/20/17 01/20/17 Range/Units 16:53 17:05 18:02 WBC 5.0 (4.3-11.1) K/mcL RBC 4.22 (3.82-4.97) M/mcL Hgb 10.0 L (11.5-15.4) g/dL Hct 33.7 L (35.3-44.9) % MCV 79.9 L (83.0-100.0) fL MCH 23.7 L (28.0-33.3) pg MCHC 29.7 L (31.6-35.5) g/dL RDW 26.2 H (11.5-14.5) % Plt Count 127 L (140-400) K/mcL MPV TNP Immature Gran % 0.2 (0-4) % Seg Neutrophils % 64.4 % Lymphocytes % 15.1 % Monocytes % 13.3 % Eosinophils % 6.2 % Basophils % 0.8 % Neutrophils # 3.2 (1.6-8.9) K/mcL Lymphocytes # 0.8 (0.6-4.6) K/mcL Monocytes # 0.7 (0.0-1.3) K/mcL Eosinophils # 0.3 (0.0-0.6) K/mcL Basophils # 0.0 (0.0-0.2) K/mcL Platelet Estimate (Normal) Immature Plt Fraction 5.7 (1.1-6.1) % Polychromasia (Not Present) Hypochromasia (Not Present) Poikilocytosis 1+ A (Not Present) Anisocytosis 1+ A (Not Present) [place] Cells 1+ A (Not Present) PT (9.4-12.1) Seconds INR Sodium (136-145) mEq/L Potassium (3.5-4.5) mEq/L Chloride (98-109) mEq/L Carbon Dioxide (19-29) mEq/L BUN (7-20) mg/dL Creatinine (0.57-1.11) mg/dL Est GFR ( Amer) (> 60) Est GFR (Non-Af Amer) (> 60) BUN/Creatinine Ratio (6-26) Glucose (70-99) mg/dL POC Glucose 96 H (58-89) Calculated Osmolality (280-300) Calcium (8.6-10.8) mg/dL Total Bilirubin (0.2-1.2) mg/dL AST (5-34) Units/L ALT (0-55) Units/L Alkaline Phosphatase (38-126) Units/L Lactate Dehydrogenase (159-327) Units/L Troponin I 0.02 (0-0.03) ng/mL B-Natriuretic Peptide (0-100) pg/mL Serum Total Protein (6.0-8.3) g/dL Albumin (3.5-5.0) g/dL Globulin (2.4-3.5) g/dL Albumin/Globulin Ratio (1.1-2.2) Urine Color (Yellow) Urine Clarity (Clear) Urine pH (5.0-8.0) pH Units Ur Specific Chase (1.010-1.025) Urine Protein (Neg-Trace) mg/dL Urine Glucose (UA) (Normal) mg/dL Urine Ketones (Negative) mg/dL Urine Blood (Negative) Urine Nitrite (Negative) Urine Bilirubin (Negative) Urine Urobilinogen (Normal) mg/dL Ur Leukocyte Esterase (Negative) Urine Microscopic RBC (0-3) per hpf Urine Microscopic WBC (0-3) per hpf Ur Squamous Epith Cells (None-Few) per lpf Urine Bacteria (None-Few) per hpf Hyaline Casts (None-Few) per lpf Ur Culture Indicated? (NO) Pleural Fluid Volume mL Pleural Appearance (Clear) Pleural RBC (0.000 - 0.002) M/mcL Pleural Tot Nuc Cell (0-1000) TNC/mcL Pleural Neutrophils % Pleural Band Neuts % Pleural Eosinophils Pleural Basophils Pleural Lymphocytes % % Pleural Monocytes % % Pleural Other Cells % % Pleural Total Protein (No Ref Range) g/dL Pleural LDH (No Ref Range) Units/L Pleural Glucose (No Ref Range) mg/dL Pleural Cholesterol (No Ref Range) mg/dL Blood Type Antibody Screen 01/20/17 01/20/17 01/20/17 Range/Units 18:02 18:02 18:02 WBC (4.3-11.1) K/mcL RBC (3.82-4.97) M/mcL Hgb (11.5-15.4) g/dL Hct (35.3-44.9) % MCV (83.0-100.0) fL MCH (28.0-33.3) pg MCHC (31.6-35.5) g/dL RDW (11.5-14.5) % Plt Count (140-400) K/mcL MPV Immature Gran % (0-4) % Seg Neutrophils % % Lymphocytes % % Monocytes % % Eosinophils % % Basophils % % Neutrophils # (1.6-8.9) K/mcL Lymphocytes # (0.6-4.6) K/mcL Monocytes # (0.0-1.3) K/mcL Eosinophils # (0.0-0.6) K/mcL Basophils # (0.0-0.2) K/mcL Platelet Estimate (Normal) Immature Plt Fraction (1.1-6.1) % Polychromasia (Not Present) Hypochromasia (Not Present) Poikilocytosis (Not Present) Anisocytosis (Not Present) Jasmin Cells (Not Present) PT 12.6 H (9.4-12.1) Seconds INR 1.2 Sodium 140 (136-145) mEq/L Potassium 3.6 (3.5-4.5) mEq/L Chloride 99 (98-109) mEq/L Carbon Dioxide 32 H (19-29) mEq/L BUN 16 (7-20) mg/dL Creatinine 1.28 H (0.57-1.11) mg/dL Est GFR ( Amer) 48 L (> 60) Est GFR (Non-Af Amer) 40 L (> 60) BUN/Creatinine Ratio 13 (6-26) Glucose 101 H (70-99) mg/dL POC Glucose (58-89) Calculated Osmolality 291 (280-300) Calcium 9.6 (8.6-10.8) mg/dL Total Bilirubin 1.7 H (0.2-1.2) mg/dL AST 10 (5-34) Units/L ALT 6 (0-55) Units/L Alkaline Phosphatase 96 (38-126) Units/L Lactate Dehydrogenase (159-327) Units/L Troponin I (0-0.03) ng/mL B-Natriuretic Peptide (0-100) pg/mL Serum Total Protein 7.0 (6.0-8.3) g/dL Albumin 3.4 L (3.5-5.0) g/dL Globulin 3.6 H (2.4-3.5) g/dL Albumin/Globulin Ratio 0.9 L (1.1-2.2) Urine Color (Yellow) Urine Clarity (Clear) Urine pH (5.0-8.0) pH Units Ur Specific Chase (1.010-1.025) Urine Protein (Neg-Trace) mg/dL Urine Glucose (UA) (Normal) mg/dL Urine Ketones (Negative) mg/dL Urine Blood (Negative) Urine Nitrite (Negative) Urine Bilirubin (Negative) Urine Urobilinogen (Normal) mg/dL Ur Leukocyte Esterase (Negative) Urine Microscopic RBC (0-3) per hpf Urine Microscopic WBC (0-3) per hpf Ur Squamous Epith Cells (None-Few) per lpf Urine Bacteria (None-Few) per hpf Hyaline Casts (None-Few) per lpf Ur Culture Indicated? (NO) Pleural Fluid Volume mL Pleural Appearance (Clear) Pleural RBC (0.000 - 0.002) M/mcL Pleural Tot Nuc Cell (0-1000) TNC/mcL Pleural Neutrophils % Pleural Band Neuts % Pleural Eosinophils Pleural Basophils Pleural Lymphocytes % % Pleural Monocytes % % Pleural Other Cells % % Pleural Total Protein (No Ref Range) g/dL Pleural LDH (No Ref Range) Units/L Pleural Glucose (No Ref Range) mg/dL Pleural Cholesterol (No Ref Range) mg/dL Blood Type O NEGATIVE Antibody Screen NEGATIVE 01/20/17 01/21/17 01/21/17 Range/Units 18:15 03:34 03:34 WBC 3.8 L (4.3-11.1) K/mcL RBC 3.76 L (3.82-4.97) M/mcL Hgb 9.0 L (11.5-15.4) g/dL Hct 30.0 L (35.3-44.9) % MCV 79.8 L (83.0-100.0) fL MCH 23.9 L (28.0-33.3) pg MCHC 30.0 L (31.6-35.5) g/dL RDW 26.1 H (11.5-14.5) % Plt Count 113 L (140-400) K/mcL MPV TNP Immature Gran % (0-4) % Seg Neutrophils % % Lymphocytes % % Monocytes % % Eosinophils % % Basophils % % Neutrophils # (1.6-8.9) K/mcL Lymphocytes # (0.6-4.6) K/mcL Monocytes # (0.0-1.3) K/mcL Eosinophils # (0.0-0.6) K/mcL Basophils # (0.0-0.2) K/mcL Platelet Estimate (Normal) Immature Plt Fraction 6.1 (1.1-6.1) % Polychromasia (Not Present) Hypochromasia (Not Present) Poikilocytosis (Not Present) Anisocytosis (Not Present) Jasmin Cells (Not Present) PT (9.4-12.1) Seconds INR Sodium 140 (136-145) mEq/L Potassium 3.5 (3.5-4.5) mEq/L Chloride 101 (98-109) mEq/L Carbon Dioxide 33 H (19-29) mEq/L BUN 18 (7-20) mg/dL Creatinine 1.31 H (0.57-1.11) mg/dL Est GFR ( Amer) 47 L (> 60) Est GFR (Non-Af Amer) 39 L (> 60) BUN/Creatinine Ratio 14 (6-26) Glucose 91 (70-99) mg/dL POC Glucose (58-89) Calculated Osmolality 291 (280-300) Calcium 8.9 (8.6-10.8) mg/dL Total Bilirubin (0.2-1.2) mg/dL AST (5-34) Units/L ALT (0-55) Units/L Alkaline Phosphatase (38-126) Units/L Lactate Dehydrogenase (159-327) Units/L Troponin I (0-0.03) ng/mL B-Natriuretic Peptide 2322 H (0-100) pg/mL Serum Total Protein (6.0-8.3) g/dL Albumin (3.5-5.0) g/dL Globulin (2.4-3.5) g/dL Albumin/Globulin Ratio (1.1-2.2) Urine Color (Yellow) Urine Clarity (Clear) Urine pH (5.0-8.0) pH Units Ur Specific [place] (1.010-1.025) Urine Protein (Neg-Trace) mg/dL Urine Glucose (UA) (Normal) mg/dL Urine Ketones (Negative) mg/dL Urine Blood (Negative) Urine Nitrite (Negative) Urine Bilirubin (Negative) Urine Urobilinogen (Normal) mg/dL Ur Leukocyte Esterase (Negative) Urine Microscopic RBC (0-3) per hpf Urine Microscopic WBC (0-3) per hpf Ur Squamous Epith Cells (None-Few) per lpf Urine Bacteria (None-Few) per hpf Hyaline Casts (None-Few) per lpf Ur Culture Indicated? (NO) Pleural Fluid Volume mL Pleural Appearance (Clear) Pleural RBC (0.000 - 0.002) M/mcL Pleural Tot Nuc Cell (0-1000) TNC/mcL Pleural Neutrophils % Pleural Band Neuts % Pleural Eosinophils Pleural Basophils Pleural Lymphocytes % % Pleural Monocytes % % Pleural Other Cells % % Pleural Total Protein (No Ref Range) g/dL Pleural LDH (No Ref Range) Units/L Pleural Glucose (No Ref Range) mg/dL Pleural Cholesterol (No Ref Range) mg/dL Blood Type Antibody Screen 01/21/17 01/22/17 01/22/17 Range/Units 05:20 03:16 10:48 WBC (4.3-11.1) K/mcL RBC (3.82-4.97) M/mcL Hgb (11.5-15.4) g/dL Hct (35.3-44.9) % MCV (83.0-100.0) fL MCH (28.0-33.3) pg MCHC (31.6-35.5) g/dL RDW (11.5-14.5) % Plt Count (140-400) K/mcL MPV Immature Gran % (0-4) % Seg Neutrophils % % Lymphocytes % % Monocytes % % Eosinophils % % Basophils % % Neutrophils # (1.6-8.9) K/mcL Lymphocytes # (0.6-4.6) K/mcL Monocytes # (0.0-1.3) K/mcL Eosinophils # (0.0-0.6) K/mcL Basophils # (0.0-0.2) K/mcL Platelet Estimate (Normal) Immature Plt Fraction (1.1-6.1) % Polychromasia (Not Present) Hypochromasia (Not Present) Poikilocytosis (Not Present) Anisocytosis (Not Present) [place] Cells (Not Present) PT (9.4-12.1) Seconds INR Sodium (136-145) mEq/L Potassium (3.5-4.5) mEq/L Chloride (98-109) mEq/L Carbon Dioxide (19-29) mEq/L BUN (7-20) mg/dL Creatinine (0.57-1.11) mg/dL Est GFR ( Amer) (> 60) Est GFR (Non-Af Amer) (> 60) BUN/Creatinine Ratio (6-26) Glucose (70-99) mg/dL POC Glucose (58-89) Calculated Osmolality (280-300) Calcium (8.6-10.8) mg/dL Total Bilirubin (0.2-1.2) mg/dL AST (5-34) Units/L ALT (0-55) Units/L Alkaline Phosphatase (38-126) Units/L Lactate Dehydrogenase 227 (159-327) Units/L Troponin I (0-0.03) ng/mL B-Natriuretic Peptide (0-100) pg/mL Serum Total Protein 5.8 L (6.0-8.3) g/dL Albumin 2.8 L (3.5-5.0) g/dL Globulin 3.0 (2.4-3.5) g/dL Albumin/Globulin Ratio 0.9 L (1.1-2.2) Urine Color Yellow (Yellow) Urine Clarity Clear (Clear) Urine pH 7.0 (5.0-8.0) pH Units Ur Specific [place] 1.010 (1.010-1.025) Urine Protein Negative (Neg-Trace) mg/dL Urine Glucose (UA) Normal (Normal) mg/dL Urine Ketones Negative (Negative) mg/dL Urine Blood Negative (Negative) Urine Nitrite Positive A (Negative) Urine Bilirubin Negative (Negative) Urine Urobilinogen Normal (Normal) mg/dL Ur Leukocyte Esterase Small H (Negative) Urine Microscopic RBC 0-3 (0-3) per hpf Urine Microscopic WBC 5-15 H (0-3) per hpf Ur Squamous Epith Cells Moderate H (None-Few) per lpf Urine Bacteria Many H (None-Few) per hpf Hyaline Casts None Seen (None-Few) per lpf Ur Culture Indicated? YES A (NO) Pleural Fluid Volume 500.0 mL Pleural Appearance Clear (Clear) Pleural RBC 0.002 (0.000 - 0.002) M/mcL Pleural Tot Nuc Cell 30 (0-1000) TNC/mcL Pleural Neutrophils 25.0 % Pleural Band Neuts 6.0 % Pleural Eosinophils Test Not Performed Pleural Basophils Test Not Performed Pleural Lymphocytes % 39.0 % Pleural Monocytes % 25.0 % Pleural Other Cells % 5.0 % Pleural Total Protein 1.5 (No Ref Range) g/dL Pleural LDH 69 (No Ref Range) Units/L Pleural Glucose 106 (No Ref Range) mg/dL Pleural Cholesterol 19 (No Ref Range) mg/dL Blood Type Antibody Screen 01/22/17 01/22/17 Range/Units 10:56 10:56 WBC 2.1 L (4.3-11.1) K/mcL RBC 3.98 (3.82-4.97) M/mcL Hgb 9.7 L (11.5-15.4) g/dL Hct 31.8 L (35.3-44.9) % MCV 79.9 L (83.0-100.0) fL MCH 24.4 L (28.0-33.3) pg MCHC 30.5 L (31.6-35.5) g/dL RDW 25.8 H (11.5-14.5) % Plt Count 115 L (140-400) K/mcL MPV TNP Immature Gran % 0.0 (0-4) % Seg Neutrophils % 52.1 % Lymphocytes % 29.6 % Monocytes % 11.3 % Eosinophils % 5.6 % Basophils % 1.4 % Neutrophils # 1.1 L (1.6-8.9) K/mcL Lymphocytes # 0.6 (0.6-4.6) K/mcL Monocytes # 0.2 (0.0-1.3) K/mcL Eosinophils # 0.1 (0.0-0.6) K/mcL Basophils # 0.0 (0.0-0.2) K/mcL Platelet Estimate Normal (Normal) Immature Plt Fraction 5.4 (1.1-6.1) % Polychromasia 1+ A (Not Present) Hypochromasia Present A (Not Present) Poikilocytosis (Not Present) Anisocytosis 2+ A (Not Present) [place] Cells (Not Present) PT (9.4-12.1) Seconds INR Sodium 139 (136-145) mEq/L Potassium 3.3 L (3.5-4.5) mEq/L Chloride 95 L (98-109) mEq/L Carbon Dioxide 36 H (19-29) mEq/L BUN 21 H (7-20) mg/dL Creatinine 1.38 H (0.57-1.11) mg/dL Est GFR ( Amer) 44 L (> 60) Est GFR (Non-Af Amer) 37 L (> 60) BUN/Creatinine Ratio 15 (6-26) Glucose 98 (70-99) mg/dL POC Glucose (58-89) Calculated Osmolality 291 (280-300) Calcium 9.3 (8.6-10.8) mg/dL Total Bilirubin (0.2-1.2) mg/dL AST (5-34) Units/L ALT (0-55) Units/L Alkaline Phosphatase (38-126) Units/L Lactate Dehydrogenase (159-327) Units/L Troponin I (0-0.03) ng/mL B-Natriuretic Peptide (0-100) pg/mL Serum Total Protein (6.0-8.3) g/dL Albumin (3.5-5.0) g/dL Globulin (2.4-3.5) g/dL Albumin/Globulin Ratio (1.1-2.2) Urine Color (Yellow) Urine Clarity (Clear) Urine pH (5.0-8.0) pH Units Ur Specific Chase (1.010-1.025) Urine Protein (Neg-Trace) mg/dL Urine Glucose (UA) (Normal) mg/dL Urine Ketones (Negative) mg/dL Urine Blood (Negative) Urine Nitrite (Negative) Urine Bilirubin (Negative) Urine Urobilinogen (Normal) mg/dL Ur Leukocyte Esterase (Negative) Urine Microscopic RBC (0-3) per hpf Urine Microscopic WBC (0-3) per hpf Ur Squamous Epith Cells (None-Few) per lpf Urine Bacteria (None-Few) per hpf Hyaline Casts (None-Few) per lpf Ur Culture Indicated? (NO) Pleural Fluid Volume mL Pleural Appearance (Clear) Pleural RBC (0.000 - 0.002) M/mcL Pleural Tot Nuc Cell (0-1000) TNC/mcL Pleural Neutrophils % Pleural Band Neuts % Pleural Eosinophils Pleural Basophils Pleural Lymphocytes % % Pleural Monocytes % % Pleural Other Cells % % Pleural Total Protein (No Ref Range) g/dL Pleural LDH (No Ref Range) Units/L Pleural Glucose (No Ref Range) mg/dL Pleural Cholesterol (No Ref Range) mg/dL Blood Type Antibody Screen - Radiology Data Radiology results reviewed: Yes I reviewed the patient's radiology results. Cervical Spine CT 01/20/17 16:50 IMPRESSION: 1. No acute abnormality detected within the cervical spine. 2. Moderate to large right pleural effusion with adjacent airspace disease, the etiology which is unclear. D/ / Joo Burnham MD / Joo Burnham MD Interpreting Provider: Joo Burnham MD Chest X-Ray 01/20/17 16:50 IMPRESSION: 1. Stable appearance since November 2016 of right base opacity and pleural effusion. 2. Cardiomegaly. 3. No acute fracture. D/ / Magdalena Lynn MD / Magdalena Lynn MD Interpreting Provider: Magdalena Lynn MD Face CT 01/20/17 16:50 IMPRESSION: 1. Acute facial contusion and left paramedian laceration with slightly displaced bilateral acute nasal bone fractures. 2. 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 There is mild progressive middle ear space opacification which may relate to progressive otitis media. D/ / John Cabral MD / John Cabral MD Interpreting Provider: John Cabral MD Head CT 01/20/17 16:50 IMPRESSION: No acute intracranial abnormality. Partially visualized nasal bone fracture with adjacent soft tissue swelling. Please refer to dedicated CT facial bone report for further details. Age related changes including chronic small vessel ischemic disease and cerebral atrophy. . D/ / Magdalena Lynn MD / Magdalena Lynn MD Interpreting Provider: Magdalena Lynn MD Knee X-Ray 01/20/17 16:50 IMPRESSION: 1. No acute osseous abnormality of the left knee. 2. Minimal knee osteoarthritis. 3. Diffuse subcutaneous edema. D/ / Magdalena Lynn MD / Magdalena Lynn MD Interpreting Provider: Magdalena Lynn MD - EKG Data EKG attestation: Yes I reviewed and interpreted this EKG. EKG shows normal: sinus rhythm Rhythm: A.Fib Melvin/QRS: normal ST segment depression in: v2, v3 T wave inversions noted in: v2, v3, v4 When compared to previous EKG there are: no significant changes Interpretation: no acute changes, nonspecific ST-T wave changes - Core Measures AMI Core Measures Followed: No Attestation Statement - Attestation Attestation: I, Panchito Prasad, examined this patient and my medical decision-making was reviewed with the BINDERY CUTTER OPERATOR/PA/Advanced Practice Nurse/Resident Physician. I agree with the documented findings, disposition and treatment plan as described except to the extent set forth below. 81-year-old female presents to the emergency department with trauma to her head. Patient states she had a mechanical fall. She is unable to give a history regarding her case and presentation. Patient has significant swelling to the bilateral superior nasal bridge. CT of the head and neck does not reveal acute fracture however CT maxillofacial shows bilateral nasal bone fractures. No evidence of septal hematoma on exam. Patient has anemia, likely worsening congestive heart failure. Patient has difficulty with ambulation and would likely do well with admission for further observation and evaluation of her ambulation.
[2017-01-20 18:18] LABS: Basophils % 0.8 %; Eosinophils % 6.2 %; Immature Granulocytes % 0.2 % (0-4); Mean Corpuscular HGB Conc 29.7 g/dL (31.6-35.5); Mean Corpuscular Hemoglobin 23.7 pg (28.0-33.3); Red Cell Distribution Width 26.2 % (11.5-14.5)
[2017-01-20 18:20] LABS: Eosinophils # 0.3 K/mcL (0.0-0.6); Hematocrit 33.7 % (35.3-44.9); Immature Platelets 5.7 % (1.1-6.1); Lymphocytes # 0.8 K/mcL (0.6-4.6); Lymphocytes % 15.1 %; Mean Corpuscular Volume 79.9 fL (83.0-100.0); Monocytes # 0.7 K/mcL (0.0-1.3); Monocytes % 13.3 %; Neutrophils # 3.2 K/mcL (1.6-8.9); Platelet Count 127 K/mcL (140-400); Red Blood Count 4.22 M/mcL (3.82-4.97); Segmented Neutrophils % 64.4 %
[2017-01-20 18:24] LABS: INR 1.2; Prothrombin Time 12.6 Seconds (9.4-12.1)
[2017-01-20 18:33] LABS: Albumin 3.4 g/dL (3.5-5.0); Albumin/Globulin Ratio 0.9 (1.1-2.2); Bilirubin,Total 1.7 mg/dL (0.2-1.2); Calcium 9.6 mg/dL (8.6-10.8); Globulin 3.6 g/dL (2.4-3.5); Potassium 3.6 mEq/L (3.5-4.5)
[2017-01-20 18:44] LABS: Anisocytosis 1+ (Not Present)
[2017-01-20 18:45] LABS: Poikilocytosis 1+ (Not Present)
[2017-01-20 18:46] LABS: Burr Cells 1+ (Not Present)
[2017-01-20] MEDS ORDERED: Furosemide 40 MG/4 ML VIAL IVP ONE (18:58)
[2017-01-20] MEDS ORDERED: *HR* OxyCODONE/APAP 5/325 TABLET PO ONE (19:30)
[2017-01-20] MEDS ORDERED: Naloxone 0.4 MG/ML INJ IVP PRN (20:33)
[2017-01-20] MEDS ORDERED: Acetaminophen 325 MG TABLET PO PRN (20:33)
--- NOTE | 2017-01-20 20:47 | Internal Med History&Physical ---
<Godfrey Byrd - Last Filed: 01/20/17 21:12> Date of Encounter: 01/20/17 Time of Encounter: 20:39 Assessment and Plan (1) Fall Current visit: Yes Status: Acute 81 F hx of afib, iron def anemia, CAD presents with cc of fall mechanical fall, fell face forward and on left knee did not use walker as noted in HPI due to physical obstruction at doorway of bathroom/was in a hurry b/l nasal fractures as seen on ct face ct head normal Left knee xray: diffuse edema no fracture cxr shows right pulmonary effusion which is no change from previous has 2+ lower extremity edema EKG sinus rhythm, st depression v2,v3 and t wave inversions v2,v3,v4 no change from pervious patient states she does not feel safe going home and would like to be admitted Plan: pain control cardiac diet head of bed elevation dvt prophylaxis GI prophylaxis Patient will need to move away any obstructions that impair her ability to use assisted mehcanical device. This is her 2nd fall for same reason according to her. Qualifiers: Encounter type: subsequent encounter Qualified Code(s): W19.XXXD - Unspecified fall, subsequent encounter (2) CHF (NYHA class III, ACC/AHA stage C) Current visit: Yes Status: Acute states since her last visit for anemia 2nd to GI bleed, her lasix dose was decreased from 80mg to 20mg BID due to hypotension. after being discharged, patient was slowly increased to 40mg AM and 20mg PM however she has noticed worsening lower extremity swelling and some worsening of sob with exertion. BNP elevated 2322 CHF with exacerbation Plan: continue home O2 start lasix 40BID IV continue home metalazone Strict I/O strict BP monitoring BMP in am renal function at baseline (3) Anemia Current visit: Yes Status: Acute IN november discharged s/p GI bleed. At that time she was on coumadin for afib. currently not on any anticoagulation hgb 10.0 denies melena hematochezia, hemoptysis and hematemesis no signs of bleeding on physical exam Plan: continue to monitor. Qualifiers: Anemia type: other cause Other causes of anemia: nutritional, unspecified Qualified Code(s): D53.9 - Nutritional anemia, unspecified (4) CAD (coronary artery disease) Current visit: Yes Status: Chronic hx of CAD denies CP EKG baseline no acute changes, ST elevations, baseline St depressions in V2,V3 Plan: continue aspirin, metoprolol, rousuvastatin Qualifiers: Coronary Disease-Associated Artery/Lesion type: [place] artery [place] vs. transplanted heart: [place] heart Associated angina: without angina Qualified Code(s): I25.10 - Atherosclerotic heart disease of [place] coronary artery without angina pectoris (5) DVT prophylaxis Current visit: Yes Status: Acute heparin SQ (6) Nasal bone fractures Current visit: Yes Status: Acute b/l nasal bone fractures 2nd to mechanical fall no signs of bleeding, severe inflammation around nasal area denies changes in vision plan: pain control Qualifiers: Encounter type: initial encounter Fracture type: closed Qualified Code(s) : S02.2XXA - Fracture of nasal bones, initial encounter for closed fracture (7) Atrial fibrillation Current visit: Yes Status: Acute currently in sinus rhythm Plan: continue metoprolol and digoxin not on anticoagulation due to hx of GI bleed cardiac tele. continue aspirin. Qualifiers: Atrial fibrillation type: paroxysmal Qualified Code(s): I48.0 - Paroxysmal atrial fibrillation (8) Goals of care, counseling/discussion Current visit: Yes Status: Acute discussed code status. Does not want CPR, intubation She also states during events like Hypotenstion, bradycardia, arrhytmias she does not want medical theraphy as she has had in the past. She states everytime I have been resuscitated I end up having to fight really hard to get better and I do not want to go through this. In those situation she wants to be in comfort. May benefit from palliative evaluation. Furthermore, she is thinking about changing form independent living to assisted nursing facility. She is interested in finding out about [facility] facility near [place]. Social service consult placed. Internal Medicine - H&P: HPI Chief complaint: fall Admitted From: Home Plans for Post Hospital Care: Home History of present illness: Ms. Carter is a 81 year old female presents with cc of fall. Patient was walking to the bathroom with waker. Her entrance to the bathroom is narrowed by a cabinet so she left it at the door and tried to walk unassisted to the toilet. She states she was in a hurry, fell face forward on the carpet in front of the bathroom door also hitting her head. She landed on the left knee. Denies lightheadedness, dizziness, vertigo before the fall. Denies syncope, blurry vision, chest pain. States she gets sob with exertion which is her normal. After the fall she was able to help herself up and call for help. Patient had 10 /10 sharp pain on her nose which. After arrival to ER she was noted to have a broken nose, CT head negative, CT cervical spine negative for fracture, CT face noted bilateral acute nasal bone fractures, with chronic left mastoiditis. Past Med Surg Social Fam HX - Past Medical History Medical history: atrial fibrillation, CHF, COPD, coronary artery disease, GERD, hepatitis, hypertension, myocardial infarction, osteoporosis, thyroid disease, valvular heart disease Psychiatric history: no psych history - Past Surgical History Surgical History: heart valve replacement (mitral), other (mitral and tricuspid valve leaflet repairs 2014) - Social History Smoking Status: Never smoker Smokeless Tobacco Status: No Alcohol use: none Drug use: none - Family History Father Living Status: Hx Family Cardiac Disorders: Yes Mother Family Member Ethnicity: Non- Living Status: Hx Family Cardiac Disorders: Yes Sister Living Status: Still Living Hx Family Cancer: Yes (colon) Hx Family Endocrine Disorder: Yes (DM) Internal Medicine - H&P: Meds Cholecalciferol (Vitamin D3) [Vitamin D3] 2,000 unit PO DAILY 02/14/15 [History] Docusate Sodium [Colace] 100 mg PO BID PRN 02/14/15 [History] Estradiol [Estrace] 0.5 gm VG 2XW 02/14/15 [History] Iron Polysaccharide Complex [Ferrex 150] 150 mg PO BID 02/14/15 [History] Levothyroxine [Synthroid] 125 mcg PO 0630 02/14/15 [History] Nitroglycerin 0.4 mg SL Q5MIN PRN 02/14/15 [History] Omeprazole [PriLOSEC] 20 mg PO DAILY 02/14/15 [History] Ranitidine HCl [Zantac] 150 mg PO BID PRN 02/14/15 [History] Rosuvastatin [Crestor] 10 mg PO HS 02/14/15 [History] Ascorbate Calcium [Vitamin C] 500 mg PO DAILY 05/12/16 [History] Ondansetron HCl [Zofran] 4 mg PO TID PRN 05/12/16 [History] Albuterol Neb [Proventil Neb] 2.5 mg IH [id number] #0 inhsol 05/16/16 [Rx] Loratadine [Allergy Relief] 10 mg PO DAILY 12/03/16 [History] Oxycodone HCl [Oxaydo] 2.5 - 5 mg PO QID PRN 12/03/16 [History] Oxygen 2 l NS CONT 12/03/16 [History] Digoxin [Lanoxin] 0.125 mg PO DAILY #30 tablet 12/09/16 [Rx] Metoprolol [Lopressor] 12.5 mg PO BID #60 tablet 12/09/16 [Rx] Aspirin Enteric Coated [Aspirin EC] 81 mg PO DAILY 01/20/17 [History] Furosemide [Lasix] 20 mg PO QPM 01/20/17 [History] Furosemide [Lasix] 40 mg PO QAM 01/20/17 [History] Potassium Chloride [K-Tab ER] 20 meq PO BID 01/20/17 [History] metOLazone [Zaroxolyn] 2.5 mg PO Q48H 01/20/17 [History] Allergies Iodinated Contrast- Oral and IV Dye [Iodinated Contrast Media - IV Dye] Allergy (Severe, Verified 02/23/15 14:09) Anaphylaxis iodine Allergy (Severe, Verified 02/23/15 14:09) Anaphylaxis Penicillins Allergy (Severe, Verified 02/23/15 14:09) Swelling of Lip/Tongue/Throat povidone-iodine [From Betadine] Allergy (Severe, Verified 02/23/15 14:09) Anaphylaxis soap [From Betadine] Allergy (Severe, Verified 02/23/15 14:09) Anaphylaxis atorvastatin Allergy (Intermediate, Verified 02/23/15 14:09) Rash Sulfa (Sulfonamide Antibiotics) Allergy (Intermediate, Verified 02/23/15 14:09) Rash bacitracin Allergy (Mild, Verified 02/23/15 14:09) Rash nitrofurantoin [From Macrobid] Allergy (Mild, Verified 02/23/15 14:09) Rash polymyxin B Allergy (Unknown, Verified 02/23/15 14:09) See Comments egg yolk Adverse Reaction (Mild, Verified 02/23/15 14:09) Nausea All Systems PM: A 10-system review of systems was performed and is negative for pertinent findings except as documented above in the HPI. Review of systems: Constitutional: Denies fever, chills HEENT: Denies headache, vision changes, neck pain, sore throat, rhinorrhea. Reports nasal pain, swelling Heart: Denies chest pain palpitations Lungs: Reports shortness of breath and exertion, denies cough Abdomen: Denies abdominal pain nausea vomiting diarrhea Back: Denies back pain Skin: Denies open sores, wounds Kidney: Denies dysuria, hematuria Extremities: Reports lower extremity bilateral edema, denies pain Neuro: Denies numbness, and tingling - Constitutional Vitals: Temp Pulse Resp BP Pulse Ox 98.3 F 73 16 145/67 91 01/20/17 20:13 01/20/17 20:13 01/20/17 20:13 01/20/17 20:13 01/20/17 20:13 - Other Additional findings: General: Alert and oriented to place time and situation. Without distress HEENT: Head atraumatic, normocephalic, EOMI, PERRLA, neck nontender to palpation , absent Lymphadenopathy, Moist Mucous Membranes, severe nasal inflammation, tender to palpation Heart: Regular rate and rhythm with no murmur Lungs: Clear to auscultation bilaterally Abdomen: Soft nontender, nondistended positive bowel sounds Extremities: 2+ pedal edema, full range of motion upper extremity and lower extremity. Gait not assessed. Mild circumferential edema left knee. Neuro: Cranial nerves II through XII intact, sensation equal bilaterally, strength upper extremity 4 out of 5 bilaterally and lower extremity 5/5 bilaterally, alert oriented 3 Vascular: Pedal and radial pulses 2 out of 4 Internal Med - H&P Results - Labs CBC & Chem 7: 01/20/17 18:02 01/20/17 18:02 <Brandon De Leon - Last Filed: 01/20/17 23:55> Date of Encounter: 01/20/17 Internal Medicine - H&P: HPI History of present illness: Ms. Carter is a 81 year old female All Systems PM: A 10-system review of systems was performed and is negative for pertinent findings except as documented above in the HPI. - Constitutional Vitals: Temp Pulse Resp BP Pulse Ox 97.4 F L 54 16 96/40 91 01/20/17 23:04 01/20/17 23:04 01/20/17 23:04 01/20/17 23:04 01/20/17 23:04 Internal Med - H&P Results - Labs CBC & Chem 7: 01/20/17 18:02 01/20/17 18:02 - Attending Attestation I examined this patient and my medical decision-making was reviewed with the Resident Physician, Dr. Godfrey Gonzalez. I agree with the documented findings, disposition and treatment plan as described except to the extent set forth below. I have independently obtained history and examined the patient and my findings are summarized below: Patient is awake alert and oriented, in no acute distress, head exam reveals periorbital and nasal bruising. Pupils are equal round reactive to light, extraocular movements are intact Heart exam reveals irregularly irregular S1-S2 with no murmurs Lower extremity reveals bilateral pitting edema. Plan: We will admit as inpatient. Consult PT OT. Start IV Lasix for CHF, strict I's and O's, daily weights.
[2017-01-20] MEDS: Furosemide 40 MG/4 ML VIAL IVP SCH (21:09)
[2017-01-20] MEDS: metOLazone 2.5 MG TABLET PO SCH (21:29)
[2017-01-20] MEDS: *HR* Heparin 5,000 UNIT/ML VIAL SQ SCH (21:29)
[2017-01-20] MEDS: Iron Polysaccharide Complex 150 MG CAPSULE PO SCH (21:29)
[2017-01-21] MEDS: Albuterol 2.5 MG/3 ML NEBULIZER IH SCH ×7 (00:01→23:48)
[2017-01-21 04:04] LABS: Mean Corpuscular Volume 79.8 fL (83.0-100.0)
[2017-01-21 04:06] LABS: Immature Platelets 6.1 % (1.1-6.1); Mean Corpuscular Hemoglobin 23.9 pg (28.0-33.3); Platelet Count 113 K/mcL (140-400); Red Blood Count 3.76 M/mcL (3.82-4.97); Red Cell Distribution Width 26.1 % (11.5-14.5)
[2017-01-21 04:22] LABS: Calcium 8.9 mg/dL (8.6-10.8); Potassium 3.5 mEq/L (3.5-4.5)
[2017-01-21] MEDS: *HR* Heparin 5,000 UNIT/ML VIAL SQ SCH ×3 (05:13→21:19)
[2017-01-21 05:31] LABS: Bilirubin,Urine Negative (Negative); Blood,Urine Negative (Negative); Clarity,Urine Clear (Clear); Color,Urine Yellow (Yellow); Glucose,Urine (UA) Normal (Normal); Ketones,Urine Negative (Negative); Leukocyte Esterase,Urine Small (Negative); Nitrite,Urine Positive (Negative); Protein,Urine Negative (Neg-Trace); Urobilinogen,Urine Normal (Normal)
[2017-01-21 05:33] LABS: Bacteria,Urine Many per hpf (None-Few); Hyaline Casts,Urine None Seen per lpf (None-Few); RBC,Urine 0-3 per hpf (0-3); Squamous Epithelial Cell,Urine Moderate per lpf (None-Few)
[2017-01-21] MEDS: *HR* OxyCODONE Immed Rel 5 MG TABLET PO PRN ×2 (05:47→21:18)
[2017-01-21] MEDS: Aspirin Enteric Coated 81 MG Tablet PO SCH (08:02)
[2017-01-21] MEDS: *HR* Digoxin 0.125 MG TABLET PO SCH (08:02)
[2017-01-21] MEDS: Iron Polysaccharide Complex 150 MG CAPSULE PO SCH ×2 (08:02→21:19)
[2017-01-21] MEDS: Furosemide 40 MG/4 ML VIAL IVP SCH ×2 (08:04→17:22)
[2017-01-21] MEDS: *HR* Morphine 2 MG/ML SYRINGE IVP PRN (15:04)
--- NOTE | 2017-01-21 16:16 | Internal Med Progress Note ---
Date of Encounter: 01/21/17 Time of Encounter: 14:00 - Assessment and plan (1) Fall Current Visit: Yes Status: Acute Assessment and plan: Appears mechanical in nature. Patient denied any syncope or presyncopal sensations. Urinary tract infection noted-treated with ciprofloxacin with culture pending. Chest x-ray negative. Cervical spine CT revealing moderate to large right-sided pleural effusion that is increased in size-IR has been brought on board for possible thoracentesis. Head CT negative. Knee x-ray negative. OT and PT recommendations are pending. ITS Impressions Cervical Spine CT 01/20/17 16:50 IMPRESSION: 1. No acute abnormality detected within the cervical spine. 2. Moderate to large right pleural effusion with adjacent airspace disease, the etiology which is unclear. D/ / Joo Burnham MD / Joo Burnham MD Interpreting Provider: Joo Burnham MD Chest X-Ray 01/20/17 16:50 IMPRESSION: 1. Stable appearance since November 2016 of right base opacity and pleural effusion. 2. Cardiomegaly. 3. No acute fracture. D/ / 01/20/2017 18:10:30 Magdalena Lynn MD / Megan Galdamez Interpreting Provider: Magdalena Lynn MD Face CT 01/20/17 16:50 IMPRESSION: 1. Acute nasal contusion and left paramedian laceration with slightly displaced bilateral acute nasal bone fractures. 2. 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 There is mild progressive middle ear space opacification which may relate to progressive otitis media. D/ / 01/20/2017 18:10:31 John Cabral MD / lisa Interpreting Provider: John Cabral MD Head CT 01/20/17 16:50 IMPRESSION: No acute intracranial abnormality. Partially visualized nasal bone fracture with adjacent soft tissue swelling. Please refer to dedicated CT facial bone report for further details. Age related changes including chronic small vessel ischemic disease and cerebral atrophy. D/ / 01/20/2017 18:08:42 Magdalena Lynn MD / Megan Galdamez Interpreting Provider: Magdalena Lynn MD Knee X-Ray 01/20/17 16:50 IMPRESSION: 1. No acute osseous abnormality of the left knee. 2. Minimal knee osteoarthritis. 3. Diffuse subcutaneous edema. D/ 01/20/2017 18:09:29 Magdalena Lynn MD / Megan Galdamez Interpreting Provider: Magdalena Lynn MD Qualifiers: Encounter type: subsequent encounter Qualified Code(s): W19.XXXD - Unspecified fall, subsequent encounter (2) UTI (urinary tract infection) Current Visit: Yes Status: Acute Assessment and plan: Treating with ciprofloxacin. Allergies noted to penicillin, sulfa, Macrobid (3) Acute exacerbation of CHF (congestive heart failure) Current Visit: Yes Status: Acute Assessment and plan: acute on chronic diastolic heart failure. Patient had an echocardiogram 2 months ago that revealed an ejection fraction of 60% with indeterminate diastolic function. Patient is on diuretics at home. She states the swelling in her upper legs has improved since admission though she states she is not yet back to her baseline. Continue to gently diurese while monitoring her renal functioning. (4) Pleural effusion Current Visit: Yes Status: Acute Assessment and plan: In review of her imaging, it appears as if her pleural effusion on the right side has increased. Patient endorsing shortness of breath above her norm and worsening dyspnea on exertion. Will bring IR on board for possible thoracentesis. (5) Nasal bone fractures Current Visit: Yes Status: Acute Qualifiers: Encounter type: initial encounter Fracture type: closed Qualified Code(s) : S02.2XXA - Fracture of nasal bones, initial encounter for closed fracture (6) Anemia Current Visit: Yes Status: Chronic Assessment and plan: Currently consistent with the high end of her baseline however the patient stating that a couple days ago, her primary care provider I told her that her hemoglobin was 7. Could be hemoconcentrated given that she was slightly dehydrated upon admission, will trend and recheck morning now that the patient is hydrated. Qualifiers: Anemia type: other cause Other causes of anemia: nutritional, unspecified Qualified Code(s): D53.9 - Nutritional anemia, unspecified (7) COPD (chronic obstructive pulmonary disease) Current Visit: No Status: Chronic Assessment and plan: No acute exacerbation. Patient denies shortness of breath above her norm. Qualifiers: COPD type: unspecified COPD Qualified Code(s): J44.9 - Chronic obstructive pulmonary disease, unspecified (8) CAD (coronary artery disease) Current Visit: Yes Status: Chronic Assessment and plan: patient denies chest pain or shortness of breath above her norm Qualifiers: Coronary Disease-Associated Artery/Lesion type: [place] artery [place] vs. transplanted heart: [place] heart Associated angina: without angina Qualified Code(s): I25.10 - Atherosclerotic heart disease of [place] coronary artery without angina pectoris (9) Chronic a-fib Current Visit: No Status: Chronic Assessment and plan: rate controlled; no anticoagulation 2/2 history of GI bleed (10) Hypothyroidism Current Visit: No Status: Chronic Assessment and plan: TSH normal a few weeks ago. Qualifiers: Hypothyroidism type: unspecified Qualified Code(s): E03.9 - Hypothyroidism , unspecified (11) CKD (chronic kidney disease) stage 3, GFR 30-59 ml/min Current Visit: No Status: Chronic Assessment and plan: stable and consistent with her baseline. (12) Chronic respiratory failure with hypoxia Current Visit: No Status: Chronic Assessment and plan: states she is on CPAP at home at bedtime, but listed as being on 2L per nasal cannula at HS only. Will clarify. Patient endorsing shortness of breath above her norm- suspect could be secondary to moderate to large pleural effusion (13) Goals of care, counseling/discussion Current Visit: Yes Status: Resolved Assessment and plan: confirmed DNRCC (14) DVT prophylaxis Current Visit: Yes Status: Acute Assessment and plan: Subcutaneous heparin - Subjective Interval history: Patient seen and examined. On examination, sitting upright in bed conversing with her 3 sisters. Patient stating her pain is currently controlled but complains of mild pain across her nose. She states she is eating well and denies concerns this time. - Constitutional Vitals: Temp Pulse Resp BP Pulse Ox 97.6 F 69 16 110/54 96 01/21/17 16:07 01/21/17 16:07 01/21/17 16:07 01/21/17 16:07 01/21/17 16:07 General appearance: Present: A&O X 3, pleasant, no acute distress, answers questions appropriately - Head Head exam: Present: atraumatic, normocephalic - Eye Eye exam: Present: EOMI, periorbital swelling, PERRL, conjuntiva pink, sclera anicteric. Absent: normal appearance Pupils: Present: PERRL - Expanded Eye Exam Eyelids: bilateral: erythema, swelling - Neck Neck exam general surgery: Present: supple, trachea midline. Absent: lymphadenopathy - Respiratory Respiratory exam: Present: CTAB. Absent: accessory muscle use, rales, respiratory distress, rhonchi, wheezes - Cardiovascular Cardiovascular exam: Present: RRR, +S1, +S2. Absent: diastolic murmur, gallop, rubs, systolic murmur - GI/Abdominal GI/Abdominal exam: Present: normal bowel sounds, soft, no peritoneal signs. Absent: distended, tenderness - Extremities Exam Extremities exam: Present: warm, radial pulses palpable and symmetrical. Absent : calf tenderness, cyanotic, pedal edema - Neurological Exam Neurological exam: Present: alert, CN II-XII intact, oriented X3, no focal deficits, strengths equal and symetr throughout. Absent: pronater drift, facial droop, speech deficit - Skin Skin exam: Present: dry, intact, pallor, warm - Expanded Skin Exam Type of lesion: Present: abrasion Distribution of rash: Present: face Description of rash: Present: erythematous, swelling, tenderness Internal Medicine: Result - Labs CBC & Chem 7: 01/21/17 03:34 01/21/17 03:34 Labs: Short CBC 01/21/17 Range/Units 03:34 WBC 3.8 L (4.3-11.1) K/mcL Hgb 9.0 L (11.5-15.4) g/dL Hct 30.0 L (35.3-44.9) % Plt Count 113 L (140-400) K/mcL BMP 01/21/17 03:34 Sodium 140 Potassium 3.5 Chloride 101 Carbon Dioxide 33 H BUN 18 Creatinine 1.31 H Glucose 91 Calcium 8.9 Urine 01/21/17 Range/Units 05:20 Urine Color Yellow (Yellow) Urine Clarity Clear (Clear) Urine pH 7.0 (5.0-8.0) pH Units Ur Specific [place] 1.010 (1.010-1.025) Urine Protein Negative (Neg-Trace) mg/dL Urine Glucose (UA) Normal (Normal) mg/dL - ABG Interpretation ABG results: PT/INR, D-dimer PT 12.6 Seconds (9.4-12.1) H 01/20/17 18:02 Consult Discharge Plan - Plan Referrals: Grayson Vizcarra MD [Partnered Physician] -
--- NOTE | 2017-01-21 20:21 | Electrocardiograph Report ---
[address] [place] [address] Test Date: 2017-01-20 Pat Name: Brianna Carter Department: 104 Room: 3B Gender: F Supervisory Examiner: : 1935 Requested By: Riky Dean Order Number: [id number] Reading MD: Beto Cummins MD Measurements Intervals Central Rate: 61 P: NE: 0 QRS: 112 QRSD: 116 T: 15 QT: 401 QTc: 405 Interpretive Statements ATRIAL FIBRILLATION BASELINE ARTIFACT Electronically Signed On 01-21-2017 20:19:50 EDT by Beto Cummins MD
[2017-01-22] MEDS: *HR* Morphine 2 MG/ML SYRINGE IVP PRN ×2 (01:14→09:39)
[2017-01-22] MEDS: Albuterol 2.5 MG/3 ML NEBULIZER IH SCH ×6 (04:16→23:36)
[2017-01-22 05:13] LABS: Albumin 2.8 g/dL (3.5-5.0); Albumin/Globulin Ratio 0.9 (1.1-2.2); Total Protein 5.8 g/dL (6.0-8.3)
[2017-01-22] MEDS: *HR* Heparin 5,000 UNIT/ML VIAL SQ SCH ×3 (06:02→20:08)
[2017-01-22] MEDS: *HR* OxyCODONE Immed Rel 5 MG TABLET PO PRN ×3 (06:16→23:12)
[2017-01-22] MEDS: Iron Polysaccharide Complex 150 MG CAPSULE PO SCH ×2 (08:30→20:08)
[2017-01-22] MEDS: Furosemide 40 MG/4 ML VIAL IVP SCH ×2 (08:31→17:17)
[2017-01-22] MEDS: Aspirin Enteric Coated 81 MG Tablet PO SCH (08:31)
[2017-01-22] MEDS: *HR* Digoxin 0.125 MG TABLET PO SCH (08:31)
--- NOTE | 2017-01-22 11:09 | IR Procedure Note ---
Date of procedure: 01/22/17 Consent Obtained: Verbal consent, Written consent Timeout: Correct patient and procedure verified, Correct site verified, Time out performed, Skin prep completed Local anesthetic: Lidocaine 1% Indications: pleural effusion Procedure Performed: thoracentesis Site/Technique: right Results/Findings: serous fluid Estimated blood loss (cc): 1 Complications: None; Tolerated procedure well Post Procedure Treatment Plan: CXR
[2017-01-22 11:39] LABS: Calcium 9.3 mg/dL (8.6-10.8); Potassium 3.3 mEq/L (3.5-4.5)
[2017-01-22 11:41] LABS: Hemoglobin 9.7 g/dL (11.5-15.4)
[2017-01-22 11:43] LABS: Basophils % 1.4 %; Eosinophils # 0.1 K/mcL (0.0-0.6); Eosinophils % 5.6 %; Hematocrit 31.8 % (35.3-44.9); Immature Platelets 5.4 % (1.1-6.1); Lymphocytes # 0.6 K/mcL (0.6-4.6); Lymphocytes % 29.6 %; Mean Corpuscular HGB Conc 30.5 g/dL (31.6-35.5); Mean Corpuscular Hemoglobin 24.4 pg (28.0-33.3); Mean Corpuscular Volume 79.9 fL (83.0-100.0); Monocytes # 0.2 K/mcL (0.0-1.3); Monocytes % 11.3 %; Neutrophils # 1.1 K/mcL (1.6-8.9); Platelet Count 115 K/mcL (140-400); Red Blood Count 3.98 M/mcL (3.82-4.97); Red Cell Distribution Width 25.8 % (11.5-14.5); Segmented Neutrophils % 52.1 %
[2017-01-22 12:58] LABS: Anisocytosis 2+ (Not Present)
[2017-01-22 12:59] LABS: Hypochromasia Present (Not Present); Platelet Estimate Normal (Normal); Polychromasia 1+ (Not Present)
[2017-01-22] MEDS: Ondansetron 4 MG/2 ML VIAL IVP PRN (13:02)
--- NOTE | 2017-01-22 13:08 | Internal Med Progress Note ---
Date of Encounter: 01/22/17 Time of Encounter: 12:00 - Assessment and plan (1) Fall Current Visit: Yes Status: Acute Assessment and plan: Appears mechanical in nature. Patient denied any syncope or presyncopal sensations. Urinary tract infection noted-treated with ciprofloxacin with sensitivities pending. Chest x-ray negative. Cervical spine CT revealing moderate to large right-sided pleural effusion that is increased in size and IR performed a thoracentesis this am. Head CT negative. Knee x-ray negative. OT and PT have recommended HH. Will observe overnight given her chest pressure ( new onset) and her pending UCx. ITS Impressions Cervical Spine CT 01/20/17 16:50 IMPRESSION: 1. No acute abnormality detected within the cervical spine. 2. Moderate to large right pleural effusion with adjacent airspace disease, the etiology which is unclear. D/ / Joo Burnham MD / Joo Burnham MD Interpreting Provider: Joo Burnham MD Chest X-Ray 01/20/17 16:50 IMPRESSION: 1. Stable appearance since November 2016 of right base opacity and pleural effusion. 2. Cardiomegaly. 3. No acute fracture. D/ / 01/20/2017 18:10:30 Magdalena Lynn MD / Mgean Galdamez Interpreting Provider: Magdalena Lynn MD Face CT 01/20/17 16:50 IMPRESSION: 1. Acute nasal contusion and left paramedian laceration with slightly displaced bilateral acute nasal bone fractures. 2. 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 There is mild progressive middle ear space opacification which may relate to progressive otitis media. D/ / 01/20/2017 18:10:31 John Cabral MD / lisa Interpreting Provider: John Cabral MD Head CT 01/20/17 16:50 IMPRESSION: No acute intracranial abnormality. Partially visualized nasal bone fracture with adjacent soft tissue swelling. Please refer to dedicated CT facial bone report for further details. Age related changes including chronic small vessel ischemic disease and cerebral atrophy. D/ / 01/20/2017 18:08:42 Magdalena Lynn MD / Megan Galdamez Interpreting Provider: Magdalena Lynn MD Knee X-Ray 01/20/17 16:50 IMPRESSION: 1. No acute osseous abnormality of the left knee. 2. Minimal knee osteoarthritis. 3. Diffuse subcutaneous edema. D/ / 01/20/2017 18:09:29 Magdalena Lynn MD / Megan Galdamez Interpreting Provider: Magdalena Lynn MD Qualifiers: Encounter type: subsequent encounter Qualified Code(s): W19.XXXD - Unspecified fall, subsequent encounter (2) UTI (urinary tract infection) Current Visit: Yes Status: Acute Assessment and plan: Treating with ciprofloxacin. Allergies noted to penicillin, sulfa, Macrobid (3) Acute exacerbation of CHF (congestive heart failure) Current Visit: Yes Status: Acute Assessment and plan: acute on chronic diastolic heart failure. Patient had an echocardiogram 2 months ago that revealed an ejection fraction of 60% with indeterminate diastolic function. Patient is on diuretics at home. She states the swelling in her upper legs has improved since admission and states she is close to her baseline. Continue to gently diurese while monitoring her renal functioning. (4) Pleural effusion Current Visit: Yes Status: Acute Assessment and plan: In review of her imaging, it appears as if her pleural effusion on the right side has increased. Patient endorsing shortness of breath above her norm and worsening dyspnea on exertion. IR was brought onboard and performed a bedside thoracentesis this am and reportedly removed 550cc of brown, serous fluid from her lung. Fluid sent for cytology. After the procedure, patient stating her shortness of breath had improved, but started to complain of chest pressure. Post CXR pending- will monitor. She denies pain, just endorses pressure that was abated slightly with belching. (5) Nasal bone fractures Current Visit: Yes Status: Acute Qualifiers: Encounter type: initial encounter Fracture type: closed Qualified Code(s) : S02.2XXA - Fracture of nasal bones, initial encounter for closed fracture (6) Anemia Current Visit: Yes Status: Chronic Assessment and plan: Currently consistent with the high end of her baseline however the patient stating that a couple days ago, her primary care provider I told her that her hemoglobin was 7. Concern for possible hemoconcentration on her initial labs, however they remain stable. Possible lab error from prior result? No indication for transfusion. Qualifiers: Anemia type: other cause Other causes of anemia: nutritional, unspecified Qualified Code(s): D53.9 - Nutritional anemia, unspecified (7) COPD (chronic obstructive pulmonary disease) Current Visit: No Status: Chronic Assessment and plan: No acute exacerbation. Patient denies shortness of breath above her norm. Qualifiers: COPD type: unspecified COPD Qualified Code(s): J44.9 - Chronic obstructive pulmonary disease, unspecified (8) CAD (coronary artery disease) Current Visit: Yes Status: Chronic Assessment and plan: patient denies chest pain or shortness of breath above her norm Qualifiers: Coronary Disease-Associated Artery/Lesion type: [place] artery [place] vs. transplanted heart: [place] heart Associated angina: without angina Qualified Code(s): I25.10 - Atherosclerotic heart disease of [place] coronary artery without angina pectoris (9) Chronic a-fib Current Visit: No Status: Chronic Assessment and plan: rate controlled; no anticoagulation 2/2 history of GI bleed (10) Hypothyroidism Current Visit: No Status: Chronic Assessment and plan: TSH normal a few weeks ago. Qualifiers: Hypothyroidism type: unspecified Qualified Code(s): E03.9 - Hypothyroidism , unspecified (11) CKD (chronic kidney disease) stage 3, GFR 30-59 ml/min Current Visit: No Status: Chronic Assessment and plan: stable and consistent with her baseline. (12) Chronic respiratory failure with hypoxia Current Visit: No Status: Chronic Assessment and plan: states she is on CPAP at home at bedtime; tolerated face mask well last night and "slept like a baby" according to the patient. Also on 2L per nasal cannula prn at home. Patient now denies shortness of breath above her norm (13) Goals of care, counseling/discussion Current Visit: Yes Status: Resolved Assessment and plan: confirmed DNRCC (14) DVT prophylaxis Current Visit: Yes Status: Acute Assessment and plan: Subcutaneous heparin (15) Thrombocytopenia Current Visit: Yes Status: Chronic Assessment and plan: Acute on chronic, stable. No signs of active bleeding. Hemodynamically stable - Subjective Interval history: Patient seen and examined after her bedside thoracentesis. She stated that she was having pressure in her chest. She denied any pain, but did endorse mild shortness of breath. She states that she took a sip of water, belched, then the pressure in her chest was slightly improved, but did not go away. Patient stating her facial pain is currently controlled but complains of mild pain across her nose. She states she is eating well. - Constitutional Vitals: Temp Pulse Resp BP Pulse Ox 97.7 F 64 15 103/65 98 01/22/17 11:26 01/22/17 11:26 01/22/17 11:26 01/22/17 11:26 01/22/17 11:26 General appearance: Present: A&O X 3, pleasant, no acute distress, answers questions appropriately - Head Head exam: Present: atraumatic, normocephalic - Eye Eye exam: Present: PERRL, conjuntiva pink, sclera anicteric Pupils: Present: PERRL - Neck Neck exam general surgery: Present: supple, trachea midline. Absent: lymphadenopathy - Respiratory Respiratory exam: Present: decreased breath sounds. Absent: accessory muscle use, rales, respiratory distress, rhonchi, wheezes - Cardiovascular Cardiovascular exam: Present: RRR, +S1, +S2. Absent: diastolic murmur, gallop, rubs, systolic murmur - GI/Abdominal GI/Abdominal exam: Present: normal bowel sounds, soft, no peritoneal signs. Absent: distended, tenderness - Extremities Exam Extremities exam: Present: warm, radial pulses palpable and symmetrical. Absent : calf tenderness, cyanotic, pedal edema - Neurological Exam Neurological exam: Present: alert, CN II-XII intact, oriented X3, no focal deficits, strengths equal and symetr throughout. Absent: pronater drift, facial droop, speech deficit - Skin Skin exam: Present: dry, intact, pallor, warm - Expanded Skin Exam Type of lesion: Present: abrasion Distribution of rash: Present: face Description of rash: Present: erythematous (ecchymotic to forehead, nose, chin and upper lip), swelling, tenderness Internal Medicine: Result - Labs CBC & Chem 7: 01/22/17 10:56 01/22/17 10:56 Labs: Short CBC 01/22/17 Range/Units 10:56 WBC 2.1 L (4.3-11.1) K/mcL Hgb 9.7 L (11.5-15.4) g/dL Hct 31.8 L (35.3-44.9) % Plt Count 115 L (140-400) K/mcL Neutrophils # 1.1 L (1.6-8.9) K/mcL BMP 01/22/17 10:56 Sodium 139 Potassium 3.3 L Chloride 95 L Carbon Dioxide 36 H BUN 21 H Creatinine 1.38 H Glucose 98 Calcium 9.3 Liver Function 01/22/17 Range/Units 03:16 Albumin 2.8 L (3.5-5.0) g/dL - ABG Interpretation ABG results: PT/INR, D-dimer PT 12.6 Seconds (9.4-12.1) H 01/20/17 18:02 Consult Discharge Plan - Plan Referrals: Grayson Vizcarra MD [Partnered Physician] - 01/27/17 3:15 pm
[2017-01-22 14:03] LABS: Glucose,Pleural Fluid 106 mg/dL (No Ref Range); LDH,Pleural Fluid 69 Units/L (No Ref Range); Total Protein,Pleural Fluid 1.5 g/dL (No Ref Range)
[2017-01-22 14:06] LABS: RBC,Pleural Fluid 0.002 M/mcL
[2017-01-22 14:10] LABS: Appearance of Pleural Fl Clear (Clear)
[2017-01-22] MEDS: metOLazone 2.5 MG TABLET PO SCH (20:08)
[2017-01-23] MEDS: Albuterol 2.5 MG/3 ML NEBULIZER IH SCH ×6 (04:41→23:39)
[2017-01-23] MEDS: *HR* Heparin 5,000 UNIT/ML VIAL SQ SCH ×3 (06:27→20:09)
[2017-01-23 07:33] LABS: Potassium 2.8 mEq/L (3.5-4.5)
[2017-01-23] MEDS: Furosemide 40 MG/4 ML VIAL IVP SCH ×2 (07:51→17:35)
[2017-01-23] MEDS: Iron Polysaccharide Complex 150 MG CAPSULE PO SCH ×2 (07:52→20:09)
[2017-01-23] MEDS: *HR* OxyCODONE Immed Rel 5 MG TABLET PO PRN ×3 (07:52→20:09)
[2017-01-23] MEDS: Aspirin Enteric Coated 81 MG Tablet PO SCH (07:52)
[2017-01-23] MEDS: *HR* Digoxin 0.125 MG TABLET PO SCH (07:52)
[2017-01-23] MEDS ORDERED: Potassium Chloride 40 MEQ, Lidocaine 1% 2 ML in D5% in Water 500 ML IVPB ONE (07:55)
[2017-01-23 07:58] LABS: Basophils % 0.8 %; Eosinophils # 0.3 K/mcL (0.0-0.6); Eosinophils % 6.7 %; Hematocrit 30.7 % (35.3-44.9); Immature Granulocytes % 0.3 % (0-4); Lymphocytes # 0.7 K/mcL (0.6-4.6); Mean Corpuscular HGB Conc 29.3 g/dL (31.6-35.5); Mean Corpuscular Hemoglobin 23.5 pg (28.0-33.3); Mean Corpuscular Volume 80.2 fL (83.0-100.0); Monocytes # 0.4 K/mcL (0.0-1.3); Monocytes % 10.7 %; Neutrophils # 2.3 K/mcL (1.6-8.9); Platelet Count 142 K/mcL (140-400); Red Blood Count 3.83 M/mcL (3.82-4.97); Red Cell Distribution Width 25.4 % (11.5-14.5); Segmented Neutrophils % 62.5 %
[2017-01-23] MEDS: Ondansetron 4 MG/2 ML VIAL IVP PRN (08:04)
[2017-01-23 08:43] LABS: Anisocytosis 3+ (Not Present)
[2017-01-23 08:44] LABS: Hypochromasia Present (Not Present); Platelet Estimate Normal (Normal)
--- NOTE | 2017-01-23 17:38 | Internal Med Progress Note ---
Date of Encounter: 01/23/17 Time of Encounter: 09:30 (and 1630) - Assessment and plan (1) Fall Current Visit: Yes Status: Acute Assessment and plan: Appears mechanical in nature. Patient denied any syncope or presyncopal sensations. Urinary tract infection noted-treating with ciprofloxacin- urine culture revealing sensitivity to flurorquinolones- will continue. Chest x-ray negative. Cervical spine CT revealing moderate to large right-sided pleural effusion that was increased in size and IR performed a thoracentesis yesterday and removed 500cc's of brown serous liquid. Head CT negative. Knee x-ray negative. OT and PT have recommended HH. Will observe overnight and likely discharge in the am pending clinical outcomes. Of note, her HH were not able to see her until tomorrow and she stated that she did not feel safe going home without HH services on her first day home. ITS Impressions Cervical Spine CT 01/20/17 16:50 IMPRESSION: 1. No acute abnormality detected within the cervical spine. 2. Moderate to large right pleural effusion with adjacent airspace disease, the etiology which is unclear. D/ / Joo Burnham MD / Joo Burnham MD Interpreting Provider: Joo Burnham MD Chest X-Ray 01/20/17 16:50 IMPRESSION: 1. Stable appearance since November 2016 of right base opacity and pleural effusion. 2. Cardiomegaly. 3. No acute fracture. D/ / 01/20/2017 18:10:30 Magdalena Lynn MD / Megan Galdamez Interpreting Provider: Magdalena Lynn MD Face CT 01/20/17 16:50 IMPRESSION: 1. Acute nasal contusion and left paramedian laceration with slightly displaced bilateral acute nasal bone fractures. 2. 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 There is mild progressive middle ear space opacification which may relate to progressive otitis media. D/ / 01/20/2017 18:10:31 John Cabral MD / lisa Interpreting Provider: John Cabral MD Head CT 01/20/17 16:50 IMPRESSION: No acute intracranial abnormality. Partially visualized nasal bone fracture with adjacent soft tissue swelling. Please refer to dedicated CT facial bone report for further details. Age related changes including chronic small vessel ischemic disease and cerebral atrophy. D/ / 01/20/2017 18:08:42 Magdalena Lynn MD / Megan Galdamez Interpreting Provider: Magdalena Lynn MD Knee X-Ray 01/20/17 16:50 IMPRESSION: 1. No acute osseous abnormality of the left knee. 2. Minimal knee osteoarthritis. 3. Diffuse subcutaneous edema. D/ / 01/20/2017 18:09:29 Magdalena Lynn MD / Megan Galdamez Interpreting Provider: Magdalena Lynn MD Qualifiers: Encounter type: subsequent encounter Qualified Code(s): W19.XXXD - Unspecified fall, subsequent encounter (2) UTI (urinary tract infection) Current Visit: Yes Status: Acute Assessment and plan: Treating with ciprofloxacin- sensitive, will continue. Tolerating cipro well without adverse reactions noted thus far. Allergies noted to penicillin, sulfa , Macrobid (3) Acute exacerbation of CHF (congestive heart failure) Current Visit: Yes Status: Acute Assessment and plan: acute on chronic diastolic heart failure. Patient had an echocardiogram 2 months ago that revealed an ejection fraction of 60% with indeterminate diastolic function. Patient is on diuretics at home. She states the swelling in her upper legs has returned to her baseline and she states that her respiratory effort has also returned to normal. Euvolemic on examination. Renal functioning stable. At home, patient is on furosemide 40 mg in the morning and 20 mg in the evening. She has been tolerating 40 mg of IV twice a day well. She appears successfully diuresed-will continue home dosing. (4) Pleural effusion Current Visit: Yes Status: Acute Assessment and plan: In review of her imaging, it appears as if her pleural effusion on the right side had increased and she had endorsed shortness of breath above her norm and worsening dyspnea on exertion. IR was brought onboard and performed a bedside thoracentesis yesterday and reportedly removed 550cc of brown, serous fluid from her lung. Fluid sent for cytology. Thus far, cytology on the pleural fluid is unremarkable. After the procedure, patient stating her shortness of breath had improved, but started to complain of chest pressure that has since resolved. Post thora CXR revealing decreased right sided pleural effusion. Patient now stating her shortness of breath has returned to her normal. ITS Impressions Chest X-Ray 01/22/17 13:35 IMPRESSION: 1. Persistent though decreased right pleural effusion following right thoracentesis with no evident right pneumothorax. 2. Decreased right basilar passive atelectasis. 3. Unchanged trace to small left pleural effusion. 4. Interstitial pulmonary edema and mild cardiomegaly, suggesting congestive heart failure. D/ / Alonzo Dailey MD / Alonzo Dailey MD interpreting Provider: Alonzo Dailey MD (5) Nasal bone fractures Current Visit: Yes Status: Acute Qualifiers: Encounter type: initial encounter Fracture type: closed Qualified Code(s) : S02.2XXA - Fracture of nasal bones, initial encounter for closed fracture (6) Anemia Current Visit: Yes Status: Chronic Assessment and plan: Currently consistent with the high end of her baseline however the patient stating that a couple days ago, her primary care provider I told her that her hemoglobin was 7. Concern for possible hemoconcentration on her initial labs, however she has remained hemodynamically stable. Possible lab error from prior result? No indication for transfusion. Qualifiers: Anemia type: other cause Other causes of anemia: nutritional, unspecified Qualified Code(s): D53.9 - Nutritional anemia, unspecified (7) COPD (chronic obstructive pulmonary disease) Current Visit: No Status: Chronic Assessment and plan: No acute exacerbation. Patient denies shortness of breath above her norm. Qualifiers: COPD type: unspecified COPD Qualified Code(s): J44.9 - Chronic obstructive pulmonary disease, unspecified (8) CAD (coronary artery disease) Current Visit: Yes Status: Chronic Assessment and plan: patient denies chest pain or shortness of breath above her norm Qualifiers: Coronary Disease-Associated Artery/Lesion type: [place] artery [place] vs. transplanted heart: [place] heart Associated angina: without angina Qualified Code(s): I25.10 - Atherosclerotic heart disease of [place] coronary artery without angina pectoris (9) Chronic a-fib Current Visit: No Status: Chronic Assessment and plan: rate controlled; no anticoagulation 2/2 history of GI bleed (10) Hypothyroidism Current Visit: No Status: Chronic Assessment and plan: TSH normal a few weeks ago. Qualifiers: Hypothyroidism type: unspecified Qualified Code(s): E03.9 - Hypothyroidism , unspecified (11) CKD (chronic kidney disease) stage 3, GFR 30-59 ml/min Current Visit: No Status: Chronic Assessment and plan: remains stable and consistent with her baseline- furosemide returned to her home dosage (12) Chronic respiratory failure with hypoxia Current Visit: No Status: Chronic Assessment and plan: states she is on CPAP at home at bedtime; tolerated face mask well again last night and slept well according to the patient. Also on 2L per nasal cannula prn at home. Patient now denies shortness of breath above her norm (13) Goals of care, counseling/discussion Current Visit: Yes Status: Resolved Assessment and plan: confirmed DNRCC (14) DVT prophylaxis Current Visit: Yes Status: Acute Assessment and plan: Subcutaneous heparin (15) Thrombocytopenia Current Visit: Yes Status: Resolved Assessment and plan: Acute on chronic,currently resolved. No signs of active bleeding. Hemodynamically stable - Subjective Interval history: Patient seen and examined earlier this am. On examination, she was sitting upright in bed attempting to eat carmona. She states that her stomach is upset. She denies vomiting and states she was just given some nausea medicine in her IV. She states her nose is sore, but states the pain was tolerable. She states that she slept relatively well last night. - Constitutional Vitals: Temp Pulse Resp BP Pulse Ox 98 F 64 16 102/60 96 01/23/17 15:03 01/23/17 15:03 01/23/17 16:32 01/23/17 15:03 01/23/17 16:32 General appearance: Present: A&O X 3, pleasant, no acute distress, answers questions appropriately - Head Head exam: Present: atraumatic, normocephalic - Eye Eye exam: Present: EOMI, periorbital swelling, periorbital tenderness, PERRL, conjuntiva pink, sclera anicteric. Absent: normal appearance Pupils: Present: PERRL - Expanded Eye Exam Eyelids: bilateral: erythema, swelling Pupils: reactive: Bilateral, regular, round: Bilateral - ENT ENT exam: Present: mucous membranes moist - Neck Neck exam general surgery: Present: supple, trachea midline. Absent: lymphadenopathy - Respiratory Respiratory exam: Present: decreased breath sounds. Absent: accessory muscle use, rales, respiratory distress, rhonchi, wheezes - Cardiovascular Cardiovascular exam: Present: RRR, +S1, +S2. Absent: diastolic murmur, gallop, rubs, systolic murmur - GI/Abdominal GI/Abdominal exam: Present: normal bowel sounds, soft, no peritoneal signs. Absent: distended, tenderness - Extremities Exam Extremities exam: Present: warm, radial pulses palpable and symmetrical. Absent : calf tenderness, cyanotic, pedal edema - Neurological Exam Neurological exam: Present: alert, CN II-XII intact, oriented X3, no focal deficits, strengths equal and symetr throughout. Absent: pronater drift, facial droop, speech deficit - Skin Skin exam: Present: dry, intact, pallor, warm - Expanded Skin Exam Type of lesion: Present: abrasion Distribution of rash: Present: face (ecchymosis and edema to eyes, nose, chin) Internal Medicine: Result - Labs CBC & Chem 7: 01/23/17 06:59 01/23/17 16:41 Labs: Short CBC 01/23/17 Range/Units 06:59 WBC 3.7 L D (4.3-11.1) K/mcL Hgb 9.0 L (11.5-15.4) g/dL Hct 30.7 L (35.3-44.9) % Plt Count 142 (140-400) K/mcL Neutrophils # 2.3 (1.6-8.9) K/mcL BMP 01/23/17 01/23/17 06:59 16:41 Sodium 138 Potassium 2.8 L 3.4 L Chloride 93 L Carbon Dioxide 35 H BUN 21 H Creatinine 1.41 H Glucose 112 H Calcium 9.0 - ABG Interpretation ABG results: PT/INR, D-dimer PT 12.6 Seconds (9.4-12.1) H 01/20/17 18:02 Consult Discharge Plan - Plan Referrals: Grayson Viczarra MD [Partnered Physician] - 01/27/17 3:15 pm
[2017-01-23] MEDS ORDERED: Mag Hydrox/Al Hydrox/Simeth 30 ML UDC PO PRN (17:49)
[2017-01-23] MEDS ORDERED: Furosemide 20 MG TABLET PO SCH (18:00)
[2017-01-24] MEDS: *HR* OxyCODONE Immed Rel 5 MG TABLET PO PRN ×2 (02:14→09:06)
[2017-01-24] MEDS: Albuterol 2.5 MG/3 ML NEBULIZER IH SCH ×3 (03:44→11:35)
[2017-01-24 04:28] LABS: Basophils % 0.5 %; Hemoglobin 8.3 g/dL (11.5-15.4); Immature Granulocytes % 0.3 % (0-4); Lymphocytes # 0.6 K/mcL (0.6-4.6); Lymphocytes % 16.1 %; Red Cell Distribution Width 24.3 % (11.5-14.5)
[2017-01-24 04:30] LABS: Eosinophils # 0.3 K/mcL (0.0-0.6); Eosinophils % 7.1 %; Hematocrit 27.5 % (35.3-44.9); Immature Platelets 5.2 % (1.1-6.1); Mean Corpuscular HGB Conc 30.2 g/dL (31.6-35.5); Mean Corpuscular Hemoglobin 23.9 pg (28.0-33.3); Monocytes # 0.5 K/mcL (0.0-1.3); Monocytes % 12.2 %; Neutrophils # 2.5 K/mcL (1.6-8.9); Platelet Count 104 K/mcL (140-400); Red Blood Count 3.48 M/mcL (3.82-4.97); Segmented Neutrophils % 63.8 %
[2017-01-24 04:38] LABS: Magnesium 1.8 mg/dL (1.6-2.6); Potassium 3.4 mEq/L (3.5-4.5)
[2017-01-24 06:48] LABS: Anisocytosis 2+ (Not Present); Platelet Estimate Decreased (Normal); Schistocytes 1+ (Not Present)
[2017-01-24] MEDS: *HR* Heparin 5,000 UNIT/ML VIAL SQ SCH (06:56)
[2017-01-24 07:09] VITALS: BP 138/51
[2017-01-24] MEDS ORDERED: Furosemide 40 MG TABLET PO SCH (09:00)
[2017-01-24] MEDS: Aspirin Enteric Coated 81 MG Tablet PO SCH (09:03)
[2017-01-24] MEDS: *HR* Digoxin 0.125 MG TABLET PO SCH (09:03)
[2017-01-24] MEDS: Iron Polysaccharide Complex 150 MG CAPSULE PO SCH (09:03)
[2017-01-24] MEDS: Ondansetron 4 MG/2 ML VIAL IVP PRN (09:10)
--- NOTE | 2017-01-24 12:39 | Discharge Summary ---
Date of Encounter: 01/24/17 Time of Encounter: 09:30 - Discharge Diagnosis (1) Fall Priority: Primary Status: Acute Comments: Appears mechanical in nature. Patient denied any syncope or presyncopal sensations. Urinary tract infection noted-treating with ciprofloxacin- urine culture revealing sensitivity to flurorquinolones- will continue. Chest x-ray negative. Cervical spine CT revealing moderate to large right-sided pleural effusion that was increased in size and IR performed a thoracentesis yesterday and removed 500cc's of brown serous liquid. Head CT negative. Knee x-ray negative. OT and PT have recommended HH- sending home with HH services. Qualifiers: Encounter type: subsequent encounter Qualified Code(s): W19.XXXD - Unspecified fall, subsequent encounter (2) UTI (urinary tract infection) Priority: Primary Status: Acute Comments: Treated with ciprofloxacin without adverse reactions. Allergies noted to penicillin, sulfa, Macrobid. Qualifiers: Urinary tract infection type: acute cystitis Hematuria presence: without hematuria Qualified Code(s): N30.00 - Acute cystitis without hematuria (3) Acute exacerbation of CHF (congestive heart failure) Priority: Primary Status: Resolved Comments: patient denied shortness of breath above her norm at time of discharge. Patient had an echocardiogram 2 months ago that revealed an ejection fraction of 60% with indeterminate diastolic function. Patient is on diuretics at home- will continue. She states the swelling in her upper legs has returned to her baseline and she states that her respiratory effort has also returned to normal. Euvolemic on examination. Renal functioning stable. At home, patient is on furosemide 40 mg in the morning and 20 mg in the evening. She tolerated 40 mg of IV twice a day well while admitted. Qualifiers: Congestive heart failure type: diastolic Qualified Code(s): I50.33 - Acute on chronic diastolic (congestive) heart failure (4) Pleural effusion Priority: Primary Status: Acute Comments: In review of her imaging, it appeared as if her pleural effusion on the right side had increased and she had endorsed shortness of breath above her norm and worsening dyspnea on exertion. IR was brought onboard and performed a bedside thoracentesis and reportedly removed 550cc of brown, serous fluid from her lung. Fluid sent for cytology. Thus far, cytology on the pleural fluid is unremarkable. (5) Nasal bone fractures Priority: Primary Status: Acute Qualifiers: Encounter type: initial encounter Fracture type: closed Qualified Code(s) : S02.2XXA - Fracture of nasal bones, initial encounter for closed fracture (6) Anemia Priority: Secondary Status: Chronic Comments: Currently consistent with the high end of her baseline however the patient stating that a couple days ago, her primary care provider I told her that her hemoglobin was 7. Concern for possible hemoconcentration on her initial labs, however she has remained hemodynamically stable. Possible lab error from prior result? No indication for transfusion. Qualifiers: Anemia type: other cause Other causes of anemia: nutritional, unspecified Qualified Code(s): D53.9 - Nutritional anemia, unspecified (7) COPD (chronic obstructive pulmonary disease) Priority: Secondary Status: Chronic Comments: No acute exacerbation. Patient denies shortness of breath above her norm. Successfully diuresed Qualifiers: COPD type: unspecified COPD Qualified Code(s): J44.9 - Chronic obstructive pulmonary disease, unspecified (8) CAD (coronary artery disease) Priority: Secondary Status: Chronic Comments: patient denied chest pain or shortness of breath above her norm Qualifiers: Coronary Disease-Associated Artery/Lesion type: [place] artery [place] vs. transplanted heart: [place] heart Associated angina: without angina Qualified Code(s): I25.10 - Atherosclerotic heart disease of [place] coronary artery without angina pectoris (9) Chronic a-fib Priority: Secondary Status: Chronic Comments: rate controlled; no anticoagulation 2/2 history of GI bleed (10) Hypothyroidism Priority: Secondary Status: Chronic Comments: TSH normal a few weeks ago. Qualifiers: Hypothyroidism type: unspecified Qualified Code(s): E03.9 - Hypothyroidism , unspecified (11) CKD (chronic kidney disease) stage 3, GFR 30-59 ml/min Priority: Secondary Status: Chronic Comments: remained stable and consistent with her baseline- furosemide returned to her home dosage (12) Chronic respiratory failure with hypoxia Priority: Secondary Status: Chronic Comments: states she is on CPAP at home at bedtime; tolerated face mask and slept well while admitted according to the patient. Also on 2L per nasal cannula prn at home. Patient now denies shortness of breath above her norm (13) Goals of care, counseling/discussion Priority: Primary Status: Resolved Comments: confirmed DNRCC (14) DVT prophylaxis Priority: Primary Status: Acute Comments: Subcutaneous heparin while admitted (15) Thrombocytopenia Priority: Primary Status: Resolved - Discharge Medications Prescriptions: OxyCODONE Immed Rel [Roxicodone 5 MG] 5 mg PO Q6HR PRN #25 tab PRN Reason: Pain levoFLOXacin [Levofloxacin] 250 mg PO DAILY #7 tablet Omeprazole [PriLOSEC] 20 mg PO DAILY@0630 #30 Home Medications: Cholecalciferol (Vitamin D3) [Vitamin D3] 2,000 unit PO DAILY 02/14/15 [History] Docusate Sodium [Colace] 100 mg PO BID PRN 02/14/15 [History] Estradiol [Estrace] 0.5 gm VG 2XW 02/14/15 [History] Iron Polysaccharide Complex [Ferrex 150] 150 mg PO BID 02/14/15 [History] Levothyroxine [Synthroid] 125 mcg PO 0630 02/14/15 [History] Nitroglycerin 0.4 mg SL Q5MIN PRN 02/14/15 [History] Omeprazole [PriLOSEC] 20 mg PO DAILY 02/14/15 [History] Ranitidine HCl [Zantac] 150 mg PO BID PRN 02/14/15 [History] Rosuvastatin [Crestor] 10 mg PO HS 02/14/15 [History] Ascorbate Calcium [Vitamin C] 500 mg PO DAILY 05/12/16 [History] Ondansetron HCl [Zofran] 4 mg PO TID PRN 05/12/16 [History] Albuterol Neb [Proventil Neb] 2.5 mg IH Q4GYDOC #0 inhsol 05/16/16 [Rx] Loratadine [Allergy Relief] 10 mg PO DAILY 12/03/16 [History] Oxygen 2 l NS CONT 12/03/16 [History] Digoxin [Lanoxin] 0.125 mg PO DAILY #30 tablet 12/09/16 [Rx] Metoprolol [Lopressor] 12.5 mg PO BID #60 tablet 12/09/16 [Rx] Aspirin Enteric Coated [Aspirin EC] 81 mg PO DAILY 01/20/17 [History] Furosemide [Lasix] 20 mg PO QPM 01/20/17 [History] Furosemide [Lasix] 40 mg PO QAM 01/20/17 [History] Potassium Chloride [K-Tab ER] 20 meq PO BID 01/20/17 [History] metOLazone [Zaroxolyn] 2.5 mg PO Q48H 01/20/17 [History] Omeprazole [PriLOSEC] 20 mg PO DAILY@0630 #30 01/24/17 [Rx] OxyCODONE Immed Rel [Roxicodone 5 MG] 5 mg PO Q6HR PRN #25 tab 01/24/17 [Rx] levoFLOXacin [Levofloxacin] 250 mg PO DAILY #7 tablet 01/24/17 [Rx] Allergies/Adverse Reactions: Allergies Iodinated Contrast- Oral and IV Dye [Iodinated Contrast Media - IV Dye] Allergy (Severe, Verified 02/23/15 14:09) Anaphylaxis iodine Allergy (Severe, Verified 02/23/15 14:09) Anaphylaxis Penicillins Allergy (Severe, Verified 02/23/15 14:09) Swelling of Lip/Tongue/Throat povidone-iodine [From Betadine] Allergy (Severe, Verified 02/23/15 14:09) Anaphylaxis soap [From Betadine] Allergy (Severe, Verified 02/23/15 14:09) Anaphylaxis atorvastatin Allergy (Intermediate, Verified 02/23/15 14:09) Rash Sulfa (Sulfonamide Antibiotics) Allergy (Intermediate, Verified 02/23/15 14:09) Rash bacitracin Allergy (Mild, Verified 02/23/15 14:09) Rash nitrofurantoin [From Macrobid] Allergy (Mild, Verified 02/23/15 14:09) Rash polymyxin B Allergy (Unknown, Verified 02/23/15 14:09) See Comments egg yolk Adverse Reaction (Mild, Verified 02/23/15 14:09) Nausea Date of admission: 01/22/17 13:17 Primary care physician: PCP NONE Consults: 01/20/17 20:37 Consult to Cras [CONS] Routine Reason for SW Consult: Obi is interested in living in assisted living at [place]. 01/21/17 02:01 Consult to Occupational Therapy [CONS] Routine Comment: Evaluate, develop and implement POC Reason for Consult: fall Consult to Physical Therapy [CONS] Routine Comment: Evaluate, develop and implement POC Reason for Consult: fall 01/21/17 15:46 Consult to Interventional Radiology [CONS] Routine Consulting Provider: Radiology Interventional Cols Reason for Consult: large right pleural effusion on right side. patient with increased dyspnea. please eval for possible thoracentesis. Time Notified: 15:47 Call Completed: Yes Discharging clinician: Faith Prince Anticipated date of discharge: 01/24/17 - Patient Status Disposition: Home Health Service Condition: Fair Functional capacity at discharge: uses cane/walker Overall status at discharge: patient is progressing back to baseline - Discharge Instructions Follow Up With: Grayson Vizcarra MD [Partnered Physician] - 01/27/17 3:15 pm Additional Instructions: Follow-up with primary care provider as scheduled - Diet and Activity Activity: ambulate only with your walker, as per physical therapy, increase activity as tolerated Diet: low fat, low cholesterol (fluid restriction 1.5L per day), low salt diet Hospital course: Ms. Carter is a 81 year old female with past medical history of atrial fibrillation not on anticoagulation therapy 2/2 history of GI bleeds, CHF, COPD on oxygen as needed and CPAP while asleep at home, gerd, hepatitis, mitral valve replacement, hypertension. Patient presented to the emergency department after she had fallen at home. She was walking to the bathroom with her walker but her bathroom entrance is narrowed by a She left her walker at the door and try to walk unassisted to the toilet. She stated that she was in a hurry and fell face forward onto the carpet in front of her bathroom door and hit her head. She landed on her left knee as well. She denied lightheadedness, dizziness, vertigo before the fall. She denied syncope, blurred vision, chest pain. She states after the fall, she was able to help herself up and call for help. No loss of consciousness. Patient complained of severe pain to her nose. Workup in the emergency department notable for a broken nose. Head CT negative. Cervical spine CT negative. CT of face revealed bilateral acute nasal bone fractures. Abnormal urinalysis also noted. Patient was admitted to the hospitalist service for further evaluation and management. Patient remained alert and oriented 3 throughout this admission. She was admitted and observed over the course of 4 nights. Initially during admission, patient was slightly fluid overloaded with shortness of breath above her norm and with lower extremity edema. She was successfully diuresed with IV furosemide. Her imaging of her lungs revealed an increased size to her chronic pleural effusion so IR was brought onboard who performed a thoracentesis and drained 550 mL of brown, serous fluid from her long. Fluid was sent for cytology and results thus far are unremarkable. Gram stain negative. Culture of the pleural field also negative. Patient's urinary tract infection was consistent with Klebsiella pneumoniae and she was appropriately treated with ciprofloxacin while admitted and sent home on levofloxacin. Renal functioning remained stable. She remained hemodynamically stable and there was no indication for any blood transfusion. Her supplemental oxygenation requirements did not change. On day of discharge, her pedal edema had resolved and she denied shortness of breath above her norm. She was seen and evaluated by occupational and physical therapy both of whom recommended home health services. Of note, her daughter removed From the patient's bathroom so that her walker canal fit and take her all the way back to the commode. Patient denies access to any other parts of her house. She was sent home with pain medication as well, OARRS report checked out okay. She was discharged home with home services in stable condition with close outpatient follow-up recommended. ITS Impressions Cervical Spine CT 01/20/17 16:50 IMPRESSION: 1. No acute abnormality detected within the cervical spine. 2. Moderate to large right pleural effusion with adjacent airspace disease, the etiology which is unclear. D/ / Joo Burnham MD / Joo Burnham MD Interpreting Provider: Joo Burnham MD Chest X-Ray 01/20/17 16:50 IMPRESSION: 1. Stable appearance since November 2016 of right base opacity and pleural effusion. 2. Cardiomegaly. 3. No acute fracture. D/ / 01/20/2017 18:10:30 Magdalena Lynn MD / Megan Galdamez Interpreting Provider: Magdalena Lynn MD Face CT 01/20/17 16:50 IMPRESSION: 1. Acute nasal contusion and left paramedian laceration with slightly displaced bilateral acute nasal bone fractures. 2. 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 There is mild progressive middle ear space opacification which may relate to progressive otitis media. D/ / 01/20/2017 18:10:31 John Cabral MD / lisa Interpreting Provider: John Cabral MD Head CT 01/20/17 16:50 IMPRESSION: No acute intracranial abnormality. Partially visualized nasal bone fracture with adjacent soft tissue swelling. Please refer to dedicated CT facial bone report for further details. Age related changes including chronic small vessel ischemic disease and cerebral atrophy. D/ / 01/20/2017 18:08:42 Magdalena Lynn MD / Megan Galdamez Interpreting Provider: Magdalena Lynn MD Knee X-Ray 01/20/17 16:50 IMPRESSION: 1. No acute osseous abnormality of the left knee. 2. Minimal knee osteoarthritis. 3. Diffuse subcutaneous edema. D/ / 01/20/2017 18:09:29 Magdalena Lynn MD / Megan Galdamez Interpreting Provider: Magdalena Lynn MD Chest X-Ray 01/22/17 13:35 IMPRESSION: 1. Persistent though decreased right pleural effusion following right thoracentesis with no evident right pneumothorax. 2. Decreased right basilar passive atelectasis. 3. Unchanged trace to small left pleural effusion. 4. Interstitial pulmonary edema and mild cardiomegaly, suggesting congestive heart failure. D/ / Alonzo Dailey MD / Alonzo Dailey MD interpreting Provider: Alonzo Dailey MD - Time Spent with Patient Total time spent providing and/or coordinating discharge services: - Constitutional Vitals: Temp Pulse Resp BP Pulse Ox 97.8 F 71 20 138/51 93 01/24/17 07:08 01/24/17 07:08 01/24/17 11:35 01/24/17 07:08 01/24/17 11:35 General appearance: Present: A&O X 3, pleasant, no acute distress, answers questions appropriately - Head Head exam: Present: atraumatic, normocephalic - Eye Eye exam: Present: PERRL, conjuntiva pink, sclera anicteric Pupils: Present: PERRL - Neck Neck exam general surgery: Present: supple, trachea midline. Absent: lymphadenopathy - Respiratory Respiratory exam: Present: decreased breath sounds. Absent: accessory muscle use, rales, respiratory distress, rhonchi, wheezes - Cardiovascular Cardiovascular exam: Present: RRR, +S1, +S2. Absent: diastolic murmur, gallop, rubs, systolic murmur - GI/Abdominal GI/Abdominal exam: Present: normal bowel sounds, soft, no peritoneal signs. Absent: distended, tenderness - Extremities Exam Extremities exam: Present: warm, radial pulses palpable and symmetrical. Absent : calf tenderness, cyanotic, pedal edema - Neurological Exam Neurological exam: Present: alert, CN II-XII intact, oriented X3, no focal deficits, strengths equal and symetr throughout. Absent: pronater drift, facial droop, speech deficit - Skin Skin exam: Present: dry, intact, pallor, warm - Expanded Skin Exam Type of lesion: Present: abrasion Distribution of rash: Present: face Description of rash: Present: erythematous (ecchymosis to nose, chin), swelling , tenderness
--- NOTE | 2017-01-24 14:12 | Physician Discharge Referral ---
Home Health/Hosp Referral Info Transfer to: Home Health Attending Provider: Ursula Prince CNP Provider in Charge Post Discharge: PCP - Diagnosis (1) Fall Priority: Primary Status: Acute (2) UTI (urinary tract infection) Priority: Primary Status: Acute (3) Acute exacerbation of CHF (congestive heart failure) Priority: Primary Status: Resolved (4) Pleural effusion Priority: Primary Status: Acute (5) Nasal bone fractures Priority: Primary Status: Acute (6) Anemia Priority: Secondary Status: Chronic (7) COPD (chronic obstructive pulmonary disease) Priority: Secondary Status: Chronic (8) CAD (coronary artery disease) Priority: Secondary Status: Chronic (9) Chronic a-fib Priority: Secondary Status: Chronic (10) Hypothyroidism Priority: Secondary Status: Chronic (11) CKD (chronic kidney disease) stage 3, GFR 30-59 ml/min Priority: Secondary Status: Chronic (12) Chronic respiratory failure with hypoxia Priority: Secondary Status: Chronic (13) Goals of care, counseling/discussion Priority: Primary Status: Resolved (14) DVT prophylaxis Priority: Primary Status: Acute (15) Thrombocytopenia Priority: Primary Status: Resolved - Respiratory Orders Oxygen / L per min (2 prn; cpap hs) Smoking Cessation: Smoking cessation has been advised. For more information, call the [place] Tobacco Quit Line at 4-014-DTQB-NOW. - Diet/Nutrition Diet/Nutrition Orders: No Added Salt (GUSTAVO) - Activity Activity Orders: Ambulate, Walker - Services Needed Following services are medically necessary services: Nursing, Home Health Aide, Physical Therapy, Occupational Therapy - Transfer Medications Prescriptions: OxyCODONE Immed Rel [Roxicodone 5 MG] 5 mg PO Q6HR PRN #25 tab PRN Reason: Pain levoFLOXacin [Levofloxacin] 250 mg PO DAILY #7 tablet Omeprazole [PriLOSEC] 20 mg PO DAILY@0630 #30 Home Medications: Cholecalciferol (Vitamin D3) [Vitamin D3] 2,000 unit PO DAILY 02/14/15 [History] Docusate Sodium [Colace] 100 mg PO BID PRN 02/14/15 [History] Estradiol [Estrace] 0.5 gm VG 2XW 02/14/15 [History] Iron Polysaccharide Complex [Ferrex 150] 150 mg PO BID 02/14/15 [History] Levothyroxine [Synthroid] 125 mcg PO 0630 02/14/15 [History] Nitroglycerin 0.4 mg SL Q5MIN PRN 02/14/15 [History] Omeprazole [PriLOSEC] 20 mg PO DAILY 02/14/15 [History] Ranitidine HCl [Zantac] 150 mg PO BID PRN 02/14/15 [History] Rosuvastatin [Crestor] 10 mg PO HS 02/14/15 [History] Ascorbate Calcium [Vitamin C] 500 mg PO DAILY 05/12/16 [History] Ondansetron HCl [Zofran] 4 mg PO TID PRN 05/12/16 [History] Albuterol Neb [Proventil Neb] 2.5 mg IH Q6OMHXQ #0 inhsol 05/16/16 [Rx] Loratadine [Allergy Relief] 10 mg PO DAILY 12/03/16 [History] Oxygen 2 l NS CONT 12/03/16 [History] Digoxin [Lanoxin] 0.125 mg PO DAILY #30 tablet 12/09/16 [Rx] Metoprolol [Lopressor] 12.5 mg PO BID #60 tablet 12/09/16 [Rx] Aspirin Enteric Coated [Aspirin EC] 81 mg PO DAILY 01/20/17 [History] Furosemide [Lasix] 20 mg PO QPM 01/20/17 [History] Furosemide [Lasix] 40 mg PO QAM 01/20/17 [History] Potassium Chloride [K-Tab ER] 20 meq PO BID 01/20/17 [History] metOLazone [Zaroxolyn] 2.5 mg PO Q48H 01/20/17 [History] Omeprazole [PriLOSEC] 20 mg PO DAILY@0630 #30 01/24/17 [Rx] OxyCODONE Immed Rel [Roxicodone 5 MG] 5 mg PO Q6HR PRN #25 tab 01/24/17 [Rx] levoFLOXacin [Levofloxacin] 250 mg PO DAILY #7 tablet 01/24/17 [Rx] Allergies/Adverse Reactions: Allergies Iodinated Contrast- Oral and IV Dye [Iodinated Contrast Media - IV Dye] Allergy (Severe, Verified 02/23/15 14:09) Anaphylaxis iodine Allergy (Severe, Verified 02/23/15 14:09) Anaphylaxis Penicillins Allergy (Severe, Verified 02/23/15 14:09) Swelling of Lip/Tongue/Throat povidone-iodine [From Betadine] Allergy (Severe, Verified 02/23/15 14:09) Anaphylaxis soap [From Betadine] Allergy (Severe, Verified 02/23/15 14:09) Anaphylaxis atorvastatin Allergy (Intermediate, Verified 02/23/15 14:09) Rash Sulfa (Sulfonamide Antibiotics) Allergy (Intermediate, Verified 02/23/15 14:09) Rash bacitracin Allergy (Mild, Verified 02/23/15 14:09) Rash nitrofurantoin [From Macrobid] Allergy (Mild, Verified 02/23/15 14:09) Rash polymyxin B Allergy (Unknown, Verified 02/23/15 14:09) See Comments egg yolk Adverse Reaction (Mild, Verified 02/23/15 14:09) Nausea Certification: Further, I certify that my clinical findings support that this patient is homebound (i.e. absences from home require considerable and taxing effort and are for medical reasons or sikhism services or infrequently or short duration when for other reasons) because: Homebound Reason: Patient requires assistance of a person or device to safely leave home, Leaving home requires considerable and taxing effort due to condition Attestation: My signature below is to certify that this patient is under my care and that I, or nurse practitioner, or a physician's administrative assistant front desk working with me, has a face-to -face encounter with this patient.
== END 2017-01-24 14:40 | disposition home health service (06) | DRG 291 ==
LOC: EMEROO 16:40 → 3BNU 16:40
PROVIDERS: ADMIT Nurse Practitioner Family; ATTEND Nurse Practitioner Family

== ENCOUNTER 2017-06-21 13:56 | Inpatient (IN) ==
[2017-06-21] MEDS ORDERED: Ipratropium/Albuterol Neb 3 ML IH ONE (14:10)
--- NOTE | 2017-06-21 14:15 | Emergency Department Note ---
Disposition Clinical Impression: HCAP (healthcare-associated pneumonia) Acute exacerbation of CHF (congestive heart failure) Qualifiers: Congestive heart failure type: unspecified Qualified Code(s): I50.9 - Heart failure, unspecified Fever Qualifiers: Fever type: unspecified Qualified Code(s): R50.9 - Fever, unspecified Disposition: Admitted As Inpatient Condition: Good Referrals: Grayson Vizcarra MD [Primary Care Provider] - Forms: ED Satisfaction Letter SOB HPI - General Chief Complaint: ED Shortness of Breath/Dyspnea Stated Complaint: WYATT Time Seen by Provider: 06/21/17 14:05 Source: patient, EMS Mode of arrival: EMS Limitations: no limitations Nursing Notes Reviewed: Yes Vital Signs Reviewed: Yes - History of Present Illness 81-year-old female history of oxygen-dependent COPD, CHF, prior mitral valve replacement who presents to the ER via EMS due to cough shortness of breath and fever. Reports she started feeling unwell yesterday. She had fevers overnight and today was noted to be 101.7. She was given Tylenol prior to arrival. Also states she has a chronic cough but no sputum started to be yellow last night. She reports chest pain whenever she coughs. She has abdominal pain which is chronic. Reports she wears 2 L nasal cannula continuously. Patient found to be 89% on her usual 2 L when EMS picked her up. She was given 1 DuoNeb treatment in route with improvement of his respiratory status. She reports a prior history of DVT on anticoagulation however she states secondary to her anemia and bleeding she is no longer on any antiplatelet or anticoagulation medications. No other complaints. Pt Subjective Complaint: shortness of breath, cough Onset (ago): day(s) Context: recent illness Consistency/Duration: constant Improves with: nothing Worsens with: nothing Known history of: COPD, congestive heart failure Associated symptoms: Reports: chest pain, fever, cough, sputum production Treatment prior to arrival: bronchodilator Cough present: Yes Cough Description: Involuntary Cough Frequency: Intermittent Sputum production: No Sputum Amount: None - Related Data Home oxygen amount: 2 liters Home Medications Medication Instructions Recorded Confirmed Cholecalciferol (Vitamin D3) 2,000 unit PO DAILY 02/14/15 06/03/17 [Vitamin D3] Docusate Sodium [Colace] 100 mg PO BID PRN 02/14/15 06/03/17 Estradiol [Estrace] 0.5 gm VG 2XW 02/14/15 06/03/17 Iron Polysaccharide Complex 150 mg PO BID 02/14/15 06/03/17 [Ferrex 150] Levothyroxine [Synthroid] 125 mcg PO 0630 02/14/15 06/03/17 Nitroglycerin 0.4 mg SL Q5MIN PRN 02/14/15 06/03/17 Ranitidine HCl [Zantac] 150 mg PO BID PRN 02/14/15 06/03/17 Rosuvastatin [Crestor] 10 mg PO HS 02/14/15 06/03/17 Ascorbate Calcium [Vitamin C] 500 mg PO DAILY 05/12/16 06/03/17 Ondansetron HCl [Zofran] 4 mg PO TID PRN 05/12/16 06/03/17 Loratadine [Allergy Relief] 10 mg PO DAILY 12/03/16 06/03/17 Oxygen 2 l NS CONT 12/03/16 06/03/17 Furosemide [Lasix] 20 mg PO QPM 01/20/17 06/03/17 Furosemide [Lasix] 40 mg PO QAM 01/20/17 06/03/17 Potassium Chloride [K-Tab ER] 20 meq PO BID 01/20/17 06/03/17 Acetaminophen [Tylenol] 325 mg PO Q6HR PRN 06/03/17 06/03/17 Previous Rx's Medication Instructions Recorded Albuterol Neb [Proventil Neb] 2.5 mg IH [id number] #0 inhsol 05/16/16 Digoxin [Lanoxin] 0.125 mg PO DAILY #30 tablet 12/09/16 Metoprolol [Lopressor] 12.5 mg PO BID #60 tablet 12/09/16 Omeprazole [PriLOSEC] 20 mg PO DAILY@0630 #30 01/24/17 OxyCODONE Immed Rel [Roxicodone 5 5 mg PO Q6HR PRN #25 tab 01/24/17 MG] Allergies Allergy/AdvReac Type Severity Reaction Status Date / Time Iodinated Contrast- Oral and Allergy Severe Anaphylaxis Verified 02/23/15 14:09 IV Dye [Iodinated Contrast Media - IV Dye] iodine Allergy Severe Anaphylaxis Verified 02/23/15 14:09 Penicillins Allergy Severe Swelling Verified 02/23/15 14:09 of Lip/Tongue/Throat povidone-iodine Allergy Severe Anaphylaxis Verified 02/23/15 14:09 [From Betadine] soap [From Betadine] Allergy Severe Anaphylaxis Verified 02/23/15 14:09 atorvastatin Allergy Intermediate Rash Verified 02/23/15 14:09 Sulfa (Sulfonamide Allergy Intermediate Rash Verified 02/23/15 14:09 Antibiotics) bacitracin Allergy Mild Rash Verified 02/23/15 14:09 nitrofurantoin Allergy Mild Rash Verified 02/23/15 14:09 [From Macrobid] polymyxin B Allergy Unknown See Verified 02/23/15 14:09 Comments egg yolk AdvReac Mild Nausea Verified 02/23/15 14:09 All systems ED: reviewed and negative except as stated. Constitutional: Reports: fever Cardiovascular: Reports: chest pain Respiratory: Reports: cough, dyspnea, sputum production Gastrointestinal: Reports: abdominal pain. Denies: nausea, vomiting, diarrhea Past Medical History - Past Medical History Attestation: Yes The following information was validated with the patient. Source: patient Medical history: Reports: atrial fibrillation, CHF, COPD, coronary artery disease, GERD, hepatitis, hypertension, myocardial infarction, osteoporosis, thyroid disease, valvular heart disease Surgical history: Reports: heart valve replacement, other Psychiatric history: Reports: no psych history - Social History Smoking Status: Never smoker Smokeless Tobacco Status: No Alcohol use: Reports: none Drug use: Reports: none Physical Exam - General Limitations: no limitations General appearance: alert, in no apparent distress - Head Head exam: atraumatic, normocephalic - Eye Eye exam: Present: normal appearance - ENT ENT exam: normal exam - Neck Neck exam: Present: normal inspection, full ROM - Chest Chest inspection: Present: normal inspection, symmetric chest wall rise - Respiratory Respiratory exam: Present: other (Diminished breath sounds bilaterally). Absent : respiratory distress, stridor - Cardiovascular Cardiovascular exam: Present: regular rate, normal rhythm, normal heart sounds - Abdominal Exam Abdominal exam: Present: soft, tenderness (Mild lower abdominal tenderness). Absent: distention, guarding, rigidity - Extremities Exam Extremities exam: Present: normal inspection, full ROM - Expanded Upper Extremity Exam Shoulder exam: Present: normal inspection, full ROM Arm exam: Present: normal inspection, full ROM Elbow exam: Present: normal inspection, full ROM Forearm/Wrist exam: Present: normal inspection, full ROM Hand exam: Present: normal inspection, full ROM - Expanded Lower Extremity Exam Hip/Pelvis exam: Present: normal inspection, full ROM Upper leg exam: Present: normal inspection, full ROM Knee exam: Present: normal inspection, full ROM Lower leg exam: Present: normal inspection, full ROM Ankle exam: Present: normal inspection, full ROM Foot/toe exam: Present: normal inspection, full ROM - Skin Skin exam: Present: warm, dry, intact Course Course Narrative: Patient seen and examined. Vital signs reviewed. We will obtain an EKG as well as chest x-ray, CBC, chem, troponin, lactate and cultures as well as urinalysis. We will order additional DuoNeb treatments. Patient currently on 5 L at 93%. - Reevaluation(s) Reevaluation #1: Discussed results of imaging and labs with the patient. She is agreeable to being admitted to the hospital. Vital Signs Temperature 100.4 F H 06/21/17 13:57 Pulse Rate 72 06/21/17 13:57 Respiratory Rate 22 06/21/17 13:57 Blood Pressure 109/62 06/21/17 13:57 O2 Sat by Pulse Oximetry 87 06/21/17 13:57 Temperature 100.4 F H 06/21/17 13:57 Pulse Rate 101 06/21/17 15:40 Respiratory Rate 18 06/21/17 15:40 Blood Pressure 109/55 06/21/17 15:40 O2 Sat by Pulse Oximetry 95 06/21/17 15:40 Oxygen Delivery Oxygen Delivery Room Air Shortness of Breath/Dyspnea - MDM Narrative Medical decision making narrative: 81-year-old female presents to the ER from nursing facility due to cough, shortness of breath and fever. [place] unwell overnight. Reports chest pain on her right side worse with coughing. Noted to be hypoxic on her usual 2 L nasal cannula. EKG here shows no acute findings. Chest x-ray with pleural effusion and cardiomegaly. JVD on exam with BNP of 2000. She is also noted to be febrile here. Tylenol was given prior to arrival. Patient given 40 mg IV Lasix as well as vancomycin, aztreonam and Levaquin due to concern for healthcare associated pneumonia given her fever, productive sputum. Patient admitted to the hospitalist service. - Lab Data Lab results reviewed: Yes I reviewed the patient's lab results. Result diagrams: 06/21/17 14:19 06/21/17 14:19 Lab Results 06/21/17 06/21/17 06/21/17 Range/Units 14:19 14:19 14:19 WBC 2.4 L (4.3-11.1) K/mcL RBC 3.09 L (3.82-4.97) M/mcL Hgb 7.6 L (11.5-15.4) g/dL Hct 25.9 L (35.3-44.9) % MCV 83.8 (83.0-100.0) fL MCH 24.6 L (28.0-33.3) pg MCHC 29.3 L (31.6-35.5) g/dL RDW 17.5 H (11.5-14.5) % Plt Count 75 L (140-400) K/mcL MPV 10.1 (9.4-12.4) fL Seg Neutrophils % 80.0 % Lymphocytes % 8.0 % Monocytes % 10.0 % Eosinophils % 2.0 % Neutrophils # 1.9 (1.6-8.9) K/mcL Lymphocytes # 0.2 L (0.6-4.6) K/mcL Monocytes # 0.2 (0.0-1.3) K/mcL Eosinophils # 0.1 (0.0-0.6) K/mcL Platelet Estimate Slight Decrease L (Normal) Immature Plt Fraction 2.9 (1.1-6.1) % Hypochromasia Present A (Not Present) Poikilocytosis 1+ A (Not Present) Anisocytosis 1+ A (Not Present) Sodium 140 (136-145) mEq/L Potassium 3.8 (3.5-5.1) mEq/L Chloride 106 (98-107) mEq/L Carbon Dioxide 26 (23-29) mEq/L BUN 20 (8-23) mg/dL Creatinine 1.30 H (0.60-1.20) mg/dL Est GFR ( Amer) 47 L (> 60) Est GFR (Non-Af Amer) 39 L (> 60) BUN/Creatinine Ratio 15 (6-26) Glucose 123 H (70-105) mg/dL Calculated Osmolality 294 (280-300) Lactic Acid 2.1 (0.5-2.2) mmol/L Calcium 8.4 L (8.6-10.3) mg/dL Total Bilirubin 0.9 (0.3-1.0) mg/dL Direct Bilirubin 0.4 H (0.0-0.2) mg/dL Indirect Bilirubin 0.5 (0.0-1.2) mg/dL AST 11 L (13-39) Units/L ALT 9 (7-52) Units/L Alkaline Phosphatase 88 (34-104) Units/L Troponin I (< 0.04) ng/mL B-Natriuretic Peptide (Less than 100) pg/mL Serum Total Protein 5.9 L (6.4-8.9) g/dL Albumin 3.1 L (3.5-5.7) g/dL Globulin 2.8 (2.4-3.5) g/dL Albumin/Globulin Ratio 1.1 (1.1-2.2) Urine Color (Yellow) Urine Clarity (Clear) Urine pH (5.0-8.0) pH Units Ur Specific [place] (1.010-1.025) Urine Protein (Neg-Trace) mg/dL Urine Glucose (UA) (Normal) mg/dL Urine Ketones (Negative) mg/dL Urine Blood (Negative) Urine Nitrite (Negative) Urine Bilirubin (Negative) Urine Urobilinogen (Normal) mg/dL Ur Leukocyte Esterase (Negative) Urine Microscopic RBC (0-3) per hpf Urine Microscopic WBC (0-3) per hpf Ur Squamous Epith Cells (None-Few) per lpf Urine Bacteria (None-Few) per hpf Hyaline Casts (None-Few) per lpf Ur Culture Indicated? (NO) 06/21/17 06/21/17 06/21/17 Range/Units 14:19 14:19 15:19 WBC (4.3-11.1) K/mcL RBC (3.82-4.97) M/mcL Hgb (11.5-15.4) g/dL Hct (35.3-44.9) % MCV (83.0-100.0) fL MCH (28.0-33.3) pg MCHC (31.6-35.5) g/dL RDW (11.5-14.5) % Plt Count (140-400) K/mcL MPV (9.4-12.4) fL Seg Neutrophils % % Lymphocytes % % Monocytes % % Eosinophils % % Neutrophils # (1.6-8.9) K/mcL Lymphocytes # (0.6-4.6) K/mcL Monocytes # (0.0-1.3) K/mcL Eosinophils # (0.0-0.6) K/mcL Platelet Estimate (Normal) Immature Plt Fraction (1.1-6.1) % Hypochromasia (Not Present) Poikilocytosis (Not Present) Anisocytosis (Not Present) Sodium (136-145) mEq/L Potassium (3.5-5.1) mEq/L Chloride (98-107) mEq/L Carbon Dioxide (23-29) mEq/L BUN (8-23) mg/dL Creatinine (0.60-1.20) mg/dL Est GFR ( Amer) (> 60) Est GFR (Non-Af Amer) (> 60) BUN/Creatinine Ratio (6-26) Glucose (70-105) mg/dL Calculated Osmolality (280-300) Lactic Acid (0.5-2.2) mmol/L Calcium (8.6-10.3) mg/dL Total Bilirubin (0.3-1.0) mg/dL Direct Bilirubin (0.0-0.2) mg/dL Indirect Bilirubin (0.0-1.2) mg/dL AST (13-39) Units/L ALT (7-52) Units/L Alkaline Phosphatase (34-104) Units/L Troponin I < 0.03 (< 0.04) ng/mL B-Natriuretic Peptide 2001 H (Less than 100) pg/mL Serum Total Protein (6.4-8.9) g/dL Albumin (3.5-5.7) g/dL Globulin (2.4-3.5) g/dL Albumin/Globulin Ratio (1.1-2.2) Urine Color Yellow (Yellow) Urine Clarity Clear (Clear) Urine pH 6.0 (5.0-8.0) pH Units Ur Specific [place] 1.010 (1.010-1.025) Urine Protein Trace (Neg-Trace) mg/dL Urine Glucose (UA) Normal (Normal) mg/dL Urine Ketones Negative (Negative) mg/dL Urine Blood Negative (Negative) Urine Nitrite Negative (Negative) Urine Bilirubin Negative (Negative) Urine Urobilinogen Normal (Normal) mg/dL Ur Leukocyte Esterase Trace H (Negative) Urine Microscopic RBC 0-3 (0-3) per hpf Urine Microscopic WBC 3-5 H (0-3) per hpf Ur Squamous Epith Cells Many H (None-Few) per lpf Urine Bacteria None Seen (None-Few) per hpf Hyaline Casts None Seen (None-Few) per lpf Ur Culture Indicated? NO. (NO) - Radiology Data Radiology results reviewed: Yes I reviewed the patient's radiology results. Chest X-Ray 06/21/17 14:09 IMPRESSION: 1. Congestive heart failure. D/ / Niko Faith MD / Niko Faith MD Interpreting Provider: Niko Faith MD - EKG Data EKG attestation: Yes I reviewed and interpreted this EKG. EKG results narrative: EKG demonstrates atrial fibrillation with a rate of 74 bpm. Normal intervals. Normal R-wave progression. Nonspecific ST-T wave changes in the inferior leads. No gross ST elevations or depressions. No acute ischemic findings. No significant changes from previous EKG. S.B.A.R. - [email or web address] Situation: Demographics, MOA Background: Presenting Complaint, Relevant PMH, Meds, & Allergies Assessment: Course and respsone to treatment, Patient/Family Expectation, Pertinant Lab Results Recommendation: Barrier(s) to disposition, Recommendation based on pending studies, treatments, or consults S.BMichelle Report Given to: Dr. Ambrosio Jimenez Repor Time: 16:05
[2017-06-21 14:32] LABS: Red Cell Distribution Width 17.5 % (11.5-14.5)
[2017-06-21 14:33] LABS: Hematocrit 25.9 % (35.3-44.9); Immature Platelets 2.9 % (1.1-6.1); Lymphocytes # 0.2 K/mcL (0.6-4.6); Mean Corpuscular HGB Conc 29.3 g/dL (31.6-35.5); Mean Corpuscular Hemoglobin 24.6 pg (28.0-33.3); Mean Corpuscular Volume 83.8 fL (83.0-100.0); Mean Platelet Volume 10.1 fL (9.4-12.4); Red Blood Count 3.09 M/mcL (3.82-4.97)
--- NOTE | 2017-06-21 14:43 | Emergency Department Note ---
START Narrative - START START: I examined this patient and my medical decision-making was reviewed with the Resident Physician. I agree with the documented findings, disposition and treatment plan as described except to the extent set forth below. 81-year-old female presents emergency room from assisted living facility for cough shortness of breath and fever. Sick for the past few days. Was concerned she might have the flu. She has been able to get around okay with her oxygen. She does wear 2 L chronically. She does admit to increasing cough and shortness of breath. Has history of COPD. Has a history of congestive heart failure. We will workup for both of these in the ER. She did receive a DuoNeb in route to the ER which seemed to help a lot with her breathing. He G was okay. No acute findings. Does have an underlying history of atrial fibrillation.
[2017-06-21 14:47] LABS: Albumin 3.1 g/dL (3.5-5.7); Albumin/Globulin Ratio 1.1 (1.1-2.2); Bilirubin,Direct 0.4 mg/dL (0.0-0.2); Bilirubin,Indirect 0.5 mg/dL (0.0-1.2); Bilirubin,Total 0.9 mg/dL (0.3-1.0); Calcium 8.4 mg/dL (8.6-10.3); Globulin 2.8 g/dL (2.4-3.5); Potassium 3.8 mEq/L (3.5-5.1); Total Protein 5.9 g/dL (6.4-8.9)
[2017-06-21] MEDS ORDERED: Furosemide 40 MG/4 ML VIAL IVP ONE (14:56)
[2017-06-21 15:04] LABS: Hemoglobin 7.6 g/dL (11.5-15.4); Platelet Count 75 K/mcL (140-400)
[2017-06-21 15:07] LABS: Anisocytosis 1+ (Not Present); Eosinophils # 0.1 K/mcL (0.0-0.6); Monocytes # 0.2 K/mcL (0.0-1.3); Neutrophils # 1.9 K/mcL (1.6-8.9); Platelet Estimate Slight Decrease (Normal)
[2017-06-21 15:08] LABS: Hypochromasia Present (Not Present)
[2017-06-21 15:09] LABS: Poikilocytosis 1+ (Not Present)
[2017-06-21] MEDS ORDERED: Vancomycin 1,000 MG in D5% in Water 250 ML IVPB ONE ×4 (15:12→23:00)
[2017-06-21] MEDS ORDERED: Levofloxacin 750 MG/150 ML 750 MG/150 ML BAG IVPB ONE (15:13)
[2017-06-21] MEDS ORDERED: Aztreonam 2,000 MG in Water for inj. (sterile) 20 ML 20 ML IVP ONE (15:13)
[2017-06-21] MEDS ORDERED: *HR* OxyCODONE/APAP 5/325 TABLET PO ONE (15:21)
[2017-06-21 15:37] LABS: Bilirubin,Urine Negative (Negative); Blood,Urine Negative (Negative); Clarity,Urine Clear (Clear); Color,Urine Yellow (Yellow); Glucose,Urine (UA) Normal (Normal); Ketones,Urine Negative (Negative); Leukocyte Esterase,Urine Trace (Negative); Nitrite,Urine Negative (Negative); Protein,Urine Trace mg/dL (Neg-Trace); Urobilinogen,Urine Normal (Normal)
[2017-06-21 15:40] LABS: Bacteria,Urine None Seen per hpf (None-Few); Hyaline Casts,Urine None Seen per lpf (None-Few); RBC,Urine 0-3 per hpf (0-3); Squamous Epithelial Cell,Urine Many per lpf (None-Few)
--- NOTE | 2017-06-21 16:32 | Event Note ---
Date of Encounter: 06/21/17 Time of Encounter: 16:30 Patient seen and examined. Acute diastolic chf and suspected underlyig pneumonia vs. acute bronchitis.Will vic with antibiotics given high O2 requirements. She lives in assisted living so will give cefepime and levaquin. Diuresis. DNR. Inpatient amdisssion
--- NOTE | 2017-06-21 17:36 | Internal Med History&Physical ---
Date of Encounter: 06/21/17 Time of Encounter: 17:14 Assessment and Plan (1) Acute exacerbation of CHF (congestive heart failure) Current visit: Yes Status: Acute Patient has known chronic diastolic heart failure she has been experiencing increasing shortness of breath elevated BNP 2000 chest x-ray pleural effusion and cardiomegaly echo 12/02/16 with L the EF 60% and indeterminate diastolic function and moderately dilated right ventricle with mild hypokinesis severely dilated left atrium by prostatic mitral valve appears well-seated no MR [employer] exam no significant mitral stenosis tricuspid annuloplasty noted moderate TR mild to moderate PTH all wall segments with normal motion-patient given 40 of IV Lasix in the ER we will continue Lasix 40 mg IV daily and diuresis her overnight -Monitor intake output and daily weights -Continue with beta camelia Qualifiers: Congestive heart failure type: diastolic Qualified Code(s): I50.33 - Acute on chronic diastolic (congestive) heart failure (2) HCAP (healthcare-associated pneumonia) Current visit: Yes Status: Acute Patient has been experiencing fever cough new development of yellow sputum hypoxia despite the use of oxygen she was negative for the flu. We will give vancomycin and Levaquin and Azactam patient is a resident of assisted living Continue with oxygen titrated to maintain SPO2 greater than 92% Bronchodilators Tessalon Perles for cough Sputum for culture-blood cultures have been obtained (3) Chronic respiratory failure with hypoxia Current visit: Yes Status: Acute Patient has been hypoxic S due to the 80s despite the use of home oxygen most likely related to both heart failure as well as pneumonia. We will continue with oxygen (4) Pancytopenia Current visit: Yes Status: Acute Presently patient's white count is 2.4 hemoglobin 7.6 platelet are 75 -this stable from previous in May. Patient is being seen by oncology as outpatient and is completely workup. We will have patient follow-up as outpatient in consult oncology as needed. Monitor CBC and transfuse as needed-monitor for signs and symptoms of bleeding (5) Atrial fibrillation Current visit: No Status: Acute Presently in atrial fibrillation with a controlled rate in the 70s. We will continue with digoxin and metoprolol. Patient is not anticoagulated at this time due to anemia and bleeding. Qualifiers: Atrial fibrillation type: paroxysmal Qualified Code(s): I48.0 - Paroxysmal atrial fibrillation (6) CKD (chronic kidney disease) stage 3, GFR 30-59 ml/min Current visit: No Status: Chronic 1 creatinine is 1.30 this appears to be around baseline we will continue to monitor Avoid nephrotoxins Renal dose antibiotics Monitor intake and output daily weights Maintaining MAP greater than 60 (7) DVT prophylaxis Current visit: No Status: Acute Chest has for now due to patient's anemia thrombocytopenia Internal Medicine - H&P: HPI Chief complaint: cough SOB Admitted From: Emergency Dept Plans for Post Hospital Care: [facility] History of present illness: Ms. Carter is a 81 year old female past medical history of COPD oxygen dependent atrial fibrillation coronary artery disease GERD hepatitis mitral valve replacement valvular disease congestive heart failure pancytopenia. According to the patient beginning yesterday she was beginning to feel unwell throughout the night she had cough with yellow sputum production fever shortness of breath general malaise. She resides in assisted living nurse to check on her this a.m. found she had a temperature of 101 she did receive Tylenol and EMS was called. Upon arrival to EMS patient was found to be 89% on 2 L. She was given a DuoNeb in route which did improve her respiratory state. According ER records lab work did show pancytopenia as well as a CK D which is chronic elevated BNP elevated lactate chest x-ray showed pleural effusion and cardiomegaly please swab was negative EKG was controlled rate of atrial fibrillation. Blood cultures were obtained she was given antibiotics as well as Lasix. She has been admitted for further workup and evaluation. Presently patient is not appear to be in respiratory distress and she does complain of chest pain when coughing. She is hemodynamically stable at this time. Did review this case with Dr. Valente who does agree plan. Past Med Surg Social Fam HX - Past Medical History Medical history: atrial fibrillation, CHF, COPD, coronary artery disease, GERD, hepatitis, hypertension, myocardial infarction, osteoporosis, thyroid disease, valvular heart disease Psychiatric history: no psych history - Past Surgical History Surgical History: heart valve replacement, other - Social History Smoking Status: Never smoker Smokeless Tobacco Status: No Alcohol use: none Drug use: none - Family History Father Living Status: Hx Family Cardiac Disorders: Yes Mother Family Member Ethnicity: Non- Living Status: Hx Family Cardiac Disorders: Yes Sister Living Status: Still Living Hx Family Cancer: Yes (colon) Hx Family Endocrine Disorder: Yes (DM) Internal Medicine - H&P: Meds Cholecalciferol (Vitamin D3) [Vitamin D3] 2,000 unit PO DAILY 02/14/15 [History] Docusate Sodium [Colace] 100 mg PO BID PRN 02/14/15 [History] Estradiol [Estrace] 0.5 gm VG 2XW 02/14/15 [History] Iron Polysaccharide Complex [Ferrex 150] 150 mg PO BID 02/14/15 [History] Levothyroxine [Synthroid] 125 mcg PO DAILY 02/14/15 [History] Nitroglycerin 0.4 mg SL Q5MIN PRN 02/14/15 [History] Ranitidine HCl [Zantac] 150 mg PO BID PRN 02/14/15 [History] Rosuvastatin [Crestor] 10 mg PO HS 02/14/15 [History] Ascorbate Calcium [Vitamin C] 500 mg PO DAILY 05/12/16 [History] Ondansetron HCl [Zofran] 4 mg PO TID PRN 05/12/16 [History] Albuterol Neb [Proventil Neb] 2.5 mg IH [id number] #[id number] inhsol 05/16/16 [Rx] Loratadine [Allergy Relief] 10 mg PO DAILY 12/03/16 [History] Oxygen 2 l NS CONT 12/03/16 [History] Digoxin [Lanoxin] 0.125 mg PO DAILY #30 tablet 12/09/16 [Rx] Metoprolol [Lopressor] 12.5 mg PO BID #60 tablet 12/09/16 [Rx] Furosemide [Lasix] 20 mg PO QPM 01/20/17 [History] Furosemide [Lasix] 40 mg PO QAM 01/20/17 [History] Potassium Chloride [K-Tab ER] 20 meq PO BID 01/20/17 [History] OxyCODONE Immed Rel [Roxicodone 5 MG] 5 mg PO Q6HR PRN #25 tab 01/24/17 [Rx] Acetaminophen [Tylenol] 325 mg PO Q6HR PRN 06/03/17 [History] Omeprazole [PriLOSEC] 20 mg PO DAILY 06/21/17 [History] 3 Allergy/AdvReac Type Severity Reaction Status Date / Time Iodinated Contrast- Oral and Allergy Severe Anaphylaxis Verified 02/23/15 14:09 IV Dye [Iodinated Contrast Media - IV Dye] iodine Allergy Severe Anaphylaxis Verified 02/23/15 14:09 Penicillins Allergy Severe Swelling Verified 02/23/15 14:09 of Lip/Tongue/Throat povidone-iodine Allergy Severe Anaphylaxis Verified 02/23/15 14:09 [From Betadine] soap [From Betadine] Allergy Severe Anaphylaxis Verified 02/23/15 14:09 atorvastatin Allergy Intermediate Rash Verified 02/23/15 14:09 Sulfa (Sulfonamide Allergy Intermediate Rash Verified 02/23/15 14:09 Antibiotics) bacitracin Allergy Mild Rash Verified 02/23/15 14:09 nitrofurantoin Allergy Mild Rash Verified 02/23/15 14:09 [From Macrobid] polymyxin B Allergy Unknown See Verified 02/23/15 14:09 Comments egg yolk AdvReac Mild Nausea Verified 02/23/15 14:09 All Systems PM: A 10-system review of systems was performed and is negative for pertinent findings except as documented above in the HPI. - Constitutional Constitutional: anorexia, fever(s), malaise - EENT Eyes: no change in vision, no discharge, no pain, no photophobia Nose, mouth and throat: no dysphagia, no nasal discharge, no neck pain, no sore throat - Cardiovascular Cardiovascular ROS IM: no chest pain, no diaphoresis, no dyspnea, no lightheadedness, no palpitations, no syncope - Respiratory Respiratory: cough, dyspnea on exertion, wheezing, excessive phlegm production, change in phlegm color, pain with cough - Gastrointestinal Gastrointestinal: no abdominal pain, no diarrhea, no hematemesis, no hematochezia, no melena, no nausea, no vomiting - Genitourinary Genitourinary: no change in urinary stream, no dysuria, no flank pain, no hematuria - Musculoskeletal Musculoskeletal ROS IM: no numbness, no tingling - Integumentary Integumentary IM: no rash, no unusual bruising - Neurological Neurological ROS: no confusion, no convulsions, no focal weakness, no numbness, no tingling, no tremor(s) - Hematologic/Lymphatic Hematologic/Lymphatic: no easy bruising - Constitutional Vitals: Temp Pulse Resp BP Pulse Ox 100.4 F H 101 16 116/52 95 06/21/17 13:57 06/21/17 15:40 06/21/17 17:01 06/21/17 17:01 06/21/17 15:40 General appearance: Present: A&O X 3, answers questions appropriately - Head Head exam: Present: atraumatic, normocephalic - Eye Eye exam: Present: PERRL, conjuntiva pink, sclera anicteric Pupils: Present: PERRL - Neck Neck exam general surgery: Present: supple, trachea midline. Absent: lymphadenopathy - Respiratory Respiratory exam: Present: decreased breath sounds. Absent: accessory muscle use, rales, rhonchi, wheezes - Cardiovascular Cardiovascular exam: Present: irregular rhythm, +S1, +S2, systolic murmur. Absent: diastolic murmur, gallop, rubs - GI/Abdominal GI/Abdominal exam: Present: normal bowel sounds, soft, no peritoneal signs. Absent: distended, tenderness - Extremities Exam Extremities exam: Present: warm, radial pulses palpable and symmetrical. Absent : calf tenderness, cyanotic - Neurological Exam Neurological exam: Present: CN II-XII intact, oriented X3, no focal deficits. Absent: pronater drift, facial droop, speech deficit - Skin Skin exam: Present: dry, intact Internal Med - H&P Results - Labs CBC & Chem 7: 06/21/17 14:19 06/21/17 14:19 - EKG Data EKG comments: 06/21/17 18:09 Atrial fibrillation - Diagnostic Studies Other Images Additional comments: Chest X-Ray 06/21/17 14:09 IMPRESSION: 1. Congestive heart failure. D/ / Niko Faith MD / Niko Faith MD Interpreting Provider: Niko Faith MD
[2017-06-21] MEDS ORDERED: Ondansetron 4 MG/2 ML VIAL IVP PRN (17:37)
[2017-06-21] MEDS ORDERED: Naloxone 0.4 MG/ML INJ IVP PRN (17:37)
[2017-06-21] MEDS ORDERED: Benzonatate 100 MG CAPSULE PO PRN (17:39)
[2017-06-21] MEDS ORDERED: Albuterol 2.5 MG/3 ML NEBULIZER IH PRN (17:40)
[2017-06-21] MEDS ORDERED: Famotidine 20 MG TABLET PO PRN (17:41)
[2017-06-21] MEDS ORDERED: Nitroglycerin 0.4 MG TAB.SUBL SL PRN (17:41)
[2017-06-21] MEDS ORDERED: Vancomycin 1,000 MG in D5% in Water 250 ML IVPB SCH (18:00)
[2017-06-21] MEDS ORDERED: Aminoglycoside Consult 1 EACH MC ONE (18:44)
[2017-06-21] MEDS: Ipratropium/Albuterol Neb 3 ML IH SCH (19:51)
[2017-06-21] MEDS: Iron Polysaccharide Complex 150 MG CAPSULE PO SCH (21:11)
[2017-06-21] MEDS: *HR* OxyCODONE Immed Rel 5 MG TABLET PO PRN (21:12)
[2017-06-21] MEDS: Acetaminophen 325 MG TABLET PO PRN (21:12)
[2017-06-22] MEDS: Ipratropium/Albuterol Neb 3 ML IH SCH ×7 (03:31→23:32)
[2017-06-22 03:37] LABS: Basophils % 0.5 %; Hematocrit 24.3 % (35.3-44.9); Hemoglobin 7.2 g/dL (11.5-15.4); Immature Granulocytes % 0.5 % (0-4); Immature Platelets 4.9 % (1.1-6.1); Lymphocytes % 11.7 %; Mean Corpuscular HGB Conc 29.6 g/dL (31.6-35.5); Mean Corpuscular Hemoglobin 24.7 pg (28.0-33.3); Mean Corpuscular Volume 83.5 fL (83.0-100.0); Mean Platelet Volume 11.4 fL (9.4-12.4); Monocytes # 0.3 K/mcL (0.0-1.3); Monocytes % 13.2 %; Red Blood Count 2.91 M/mcL (3.82-4.97); Red Cell Distribution Width 17.7 % (11.5-14.5); Segmented Neutrophils % 74.1 %
[2017-06-22 03:47] LABS: Lymphocytes # 0.3 K/mcL (0.6-4.6); Neutrophils # 1.6 K/mcL (1.6-8.9); Platelet Count 68 K/mcL (140-400)
[2017-06-22 03:56] LABS: Calcium 8.2 mg/dL (8.6-10.3); Magnesium 2.1 mg/dL (1.6-2.6); Potassium 4.1 mEq/L (3.5-5.1)
[2017-06-22 04:11] LABS: Anisocytosis 2+ (Not Present); Platelet Estimate Decreased (Normal); Poikilocytosis 2+ (Not Present)
[2017-06-22] MEDS: *HR* OxyCODONE Immed Rel 5 MG TABLET PO PRN ×3 (04:26→23:12)
[2017-06-22] MEDS ORDERED: Aztreonam 1,000 MG in Water for inj. (sterile) 10 ML IVP SCH (06:00)
[2017-06-22] MEDS: Iron Polysaccharide Complex 150 MG CAPSULE PO SCH ×2 (08:55→23:11)
[2017-06-22] MEDS ORDERED: *HR* Digoxin 0.125 MG TABLET PO SCH (09:00)
--- NOTE | 2017-06-22 09:34 | Electrocardiograph Report ---
[place] [id number] Test Date: 2017-06-21 Pat Name: Brianna Carter Department: 103 Room: 2NE28 Gender: F Nursing Technician: BARRETT : 1935 Requested By: Rajesh Foley Order Number: [id number] Reading MD: Josie Rasheed Measurements Intervals [place] Rate: 74 P: CT: 0 QRS: 147 QRSD: 117 T: -9 QT: 375 QTc: 403 Interpretive Statements ATRIAL FIBRILLATION POSSIBLE RIGHT VENTRICULAR HYPERTROPHY [SOME/ALL OF: PROMINENT R IN V1, LATE TRANSITION, RAD, ЕКАТЕРИНА, SSS] MODERATE ST DEPRESSION Electronically Signed On 06-22-2017 9:32:59 EST by Josie Rasheed
[2017-06-22] MEDS: Furosemide 40 MG/4 ML VIAL IVP SCH (11:37)
--- NOTE | 2017-06-22 12:14 | Internal Med Progress Note ---
Date of Encounter: 06/22/17 Time of Encounter: 12:12 - Assessment and plan (1) Acute and chronic respiratory failure with hypoxia Current Visit: Yes Status: Acute Assessment and plan: Secondary to CHF exacerbation and HCAP continue IV diuretics monitor I/Os, fluid restriction diet, monitor daily weight broad spectrum IV abx f/u blood cultures O2 supplementation as needed (2) HCAP (healthcare-associated pneumonia) Current Visit: Yes Status: Acute Assessment and plan: as listed above (3) Acute exacerbation of CHF (congestive heart failure) Current Visit: No Status: Resolved Assessment and plan: as listed above Qualifiers: Congestive heart failure type: diastolic Qualified Code(s): I50.33 - Acute on chronic diastolic (congestive) heart failure (4) Atrial fibrillation Current Visit: No Status: Acute Assessment and plan: rate controlled with digoxin not on anticoagulation due to history of anemia Qualifiers: Atrial fibrillation type: paroxysmal Qualified Code(s): I48.0 - Paroxysmal atrial fibrillation (5) CKD (chronic kidney disease) stage 3, GFR 30-59 ml/min Current Visit: No Status: Chronic Assessment and plan: renal function at baseline continue to monitor renally dosing abx (6) COPD (chronic obstructive pulmonary disease) Current Visit: No Status: Chronic Assessment and plan: not in acute exacerbation continue home meds Qualifiers: COPD type: unspecified COPD Qualified Code(s): J44.9 - Chronic obstructive pulmonary disease, unspecified (7) DVT prophylaxis Current Visit: No Status: Acute Assessment and plan: SCD (8) Pancytopenia Current Visit: Yes Status: Acute Assessment and plan: pt reports of having iron deficiency anemia and receives IV iron infusions at the [facility] hematology consultation requested H&H low but acceptable no acute bleeding reported at this time continue to closely monitor - Subjective Interval history: Pt seen and examined at bedside. Reports of mild improvement in her breathing compared to previous day. Reports of history of anemia and receives Iron infusion at the [facility]. States she is due for her iron infusion on 06.23.17 will consult hematology/oncology for pancytopenia - Constitutional Vitals: Temp Pulse Resp BP Pulse Ox 98.1 F 83 15 110/53 94 06/22/17 11:16 06/22/17 11:16 06/22/17 11:34 06/22/17 11:16 06/22/17 11:34 General appearance: Present: cooperative, A&O X 3 (frail appearing elderly female ), pleasant, no acute distress, answers questions appropriately - Head Head exam: Present: atraumatic, normocephalic - Eye Eye exam: Present: conjuntiva pink, sclera anicteric - Respiratory Respiratory exam: Absent: respiratory distress, wheezes (bibasilar rales and coarse breath sounds diffusely ) - Cardiovascular Cardiovascular exam: Present: RRR, +S1, +S2. Absent: diastolic murmur, gallop, rubs, systolic murmur - GI/Abdominal GI/Abdominal exam: Present: normal bowel sounds, soft, no peritoneal signs. Absent: distended, tenderness - Extremities Exam Extremities exam: Present: warm, radial pulses palpable and symmetrical. Absent : calf tenderness, cyanotic, pedal edema - Neurological Exam Neurological exam: Present: alert, oriented X3 - Psychiatric Psychiatric exam: Present: normal affect, normal mood Internal Medicine: Result - Labs CBC & Chem 7: 06/22/17 02:26 06/22/17 02:26 Labs: Short CBC 06/22/17 Range/Units 02:26 WBC 2.1 L (4.3-11.1) K/mcL Hgb 7.2 L (11.5-15.4) g/dL Hct 24.3 L (35.3-44.9) % Plt Count 68 L (140-400) K/mcL Neutrophils # 1.6 (1.6-8.9) K/mcL BMP 06/22/17 02:26 Sodium 137 Potassium 4.1 Chloride 103 Carbon Dioxide 28 BUN 24 H Creatinine 1.43 H Glucose 98 Calcium 8.2 L Cardiac Enzymes 06/21/17 06/22/17 Range/Units 19:55 02:26 Troponin I < 0.03 0.04 H* (< 0.04) ng/mL - VTE Documentation of Mechanical Device: Graduated compression elastic hosiery Consult Discharge Plan - Plan Referrals: Grayson Vizcarra MD [Primary Care Provider] -
[2017-06-22] MEDS ORDERED: Furosemide 20 MG/2 ML VIAL IVP ONE (16:34)
--- NOTE | 2017-06-22 16:35 | Oncology Inp Consult Note ---
<Mara Garces L - Last Filed: 06/22/17 16:40> Date of Encounter: 06/22/17 Time of Encounter: 16:00 Assessment and Plan (1) Pancytopenia Status: Acute Assessment and plan: Assessed patient in room with Dr. Coughlin. Acute CHF exacerbation with BNP 2000 and evidence of congestion on CXR. Discussed cardiac history at length with patient. She has not been on anticoagulation since about November due to anemia. Concern for high output cardiac failure and resultant presentation of reported symptoms. Discussed transfusion of 1 unit PRBC for hgb 7.2 with hospitalist team, if/when hospitalist team feels patient is appropriate for transfusion, patient will need monitored closely for fluid overload. Appreciate management with hospitalist team. Will hold off on iron infusion for inpatient stay. Panyctopenia appears to wax and wane over past 2 years. History of bioprosthetic valve replacement, moderate mitral regurgitation, mitral valve repair (2009), Hx of rheumatic fever, will order echo along with hemolytic workup with LDH and haptoglobin to rule out mechanical hemolysis or hemolysis from other cause. Most recent colonoscopy in November denies s/s bleeding such as hematochezia, black/ tarry stools, hemoptysis or epistaxis. She follows closely with Dr. Robertson and is planned to have another colonoscopy soon as polyps on previous exam could not be removed Ultrasound abdomen-liver/spleen ordered. Will hold off on discussion for bone marrow biopsy at this point pending other work up. - Data of Consult Requesting Physician: Rose Marie Figueredo MD Primary Care Provider: Grayson Vizcarra MD - Consult Narrative History of present illness: Ms. Carter is a 81 year old female with past medical history significant for Hypothyroidism, left heart catherization, Moderate mitral regurgitation, Paroxysmal atrial fibrillation, Mitral valve repair (2009), Obesity, hx of CVA, Dyslipidemia, Hx of rheumatic fever, Obstructive sleep apnea, Hiatal hernia, Gastic polyps, Valvular heart disease, CAD, Hx of diverticulitis, GERD, Anemia, hx of TIA and Osteoperosis. Patient resides in independent living facility and had contacted nurse ith report that she began feeling unwell over past day or so with increasing SOB, productive cough and fever. Patient reports a temp of 101 prior to her admission , she has been afebrile since admission. Patient was found to be hypoxic upon arrival. Workup reveals pancytopenia, elevated BNP, chest x-ray shows pleural effusion and cardiomegaly, flu swab negative. [facility] and receiving treatment for what appeared like iron deficiency anemia. Anemia work up reveals SPEP with NO monoclonal protein, normal B12, TSH and vitamin D, low serum iron at 20 and 4% saturation. She was scheduled to receive injectafer today prior to her hospitalization. Oncology consulted for further pancytopenia workup. Past Med Surg Social Fam HX - Past Medical History Medical history: atrial fibrillation, CHF, COPD, coronary artery disease, GERD, hepatitis, hypertension, myocardial infarction, osteoporosis, thyroid disease, valvular heart disease Psychiatric history: no psych history - Past Surgical History Surgical History: heart valve replacement, other - Social History Smoking Status: Never smoker Smokeless Tobacco Status: No Alcohol use: none Drug use: none - Family History Father Living Status: Hx Family Cardiac Disorders: Yes Mother Family Member Ethnicity: Non- Living Status: Hx Family Cardiac Disorders: Yes Sister History Unknown: Yes Living Status: Still Living Hx Family Cancer: Yes (colon) Hx Family Endocrine Disorder: Yes (DM) Medications and Allergies Cholecalciferol (Vitamin D3) [Vitamin D3] 2,000 unit PO DAILY 02/14/15 [History] Docusate Sodium [Colace] 100 mg PO BID PRN 02/14/15 [History] Estradiol [Estrace] 0.5 gm VG 2XW 02/14/15 [History] Iron Polysaccharide Complex [Ferrex 150] 150 mg PO BID 02/14/15 [History] Levothyroxine [Synthroid] 125 mcg PO DAILY 02/14/15 [History] Nitroglycerin 0.4 mg SL Q5MIN PRN 02/14/15 [History] Ranitidine HCl [Zantac] 150 mg PO BID PRN 02/14/15 [History] Rosuvastatin [Crestor] 10 mg PO HS 02/14/15 [History] Ascorbate Calcium [Vitamin C] 500 mg PO DAILY 05/12/16 [History] Ondansetron HCl [Zofran] 4 mg PO TID PRN 05/12/16 [History] Albuterol Neb [Proventil Neb] 2.5 mg IH [id number] #[id number] inhsol 05/16/16 [Rx] Loratadine [Allergy Relief] 10 mg PO DAILY 12/03/16 [History] Oxygen 2 l NS CONT 12/03/16 [History] Digoxin [Lanoxin] 0.125 mg PO DAILY #30 tablet 12/09/16 [Rx] Metoprolol [Lopressor] 12.5 mg PO BID #60 tablet 12/09/16 [Rx] Furosemide [Lasix] 20 mg PO QPM 01/20/17 [History] Furosemide [Lasix] 40 mg PO QAM 01/20/17 [History] Potassium Chloride [K-Tab ER] 20 meq PO BID 01/20/17 [History] OxyCODONE Immed Rel [Roxicodone 5 MG] 5 mg PO Q6HR PRN #25 tab 01/24/17 [Rx] Acetaminophen [Tylenol] 325 mg PO Q6HR PRN 06/03/17 [History] Omeprazole [PriLOSEC] 20 mg PO DAILY 06/21/17 [History] 3 Allergy/AdvReac Type Severity Reaction Status Date / Time Iodinated Contrast- Oral and Allergy Severe Anaphylaxis Verified 02/23/15 14:09 IV Dye [Iodinated Contrast Media - IV Dye] iodine Allergy Severe Anaphylaxis Verified 02/23/15 14:09 Penicillins Allergy Severe Swelling Verified 02/23/15 14:09 of Lip/Tongue/Throat povidone-iodine Allergy Severe Anaphylaxis Verified 02/23/15 14:09 [From Betadine] soap [From Betadine] Allergy Severe Anaphylaxis Verified 02/23/15 14:09 atorvastatin Allergy Intermediate Rash Verified 02/23/15 14:09 Sulfa (Sulfonamide Allergy Intermediate Rash Verified 02/23/15 14:09 Antibiotics) bacitracin Allergy Mild Rash Verified 02/23/15 14:09 nitrofurantoin Allergy Mild Rash Verified 02/23/15 14:09 [From Macrobid] polymyxin B Allergy Unknown See Verified 02/23/15 14:09 Comments egg yolk AdvReac Mild Nausea Verified 02/23/15 14:09 Constitutional: Present: fatigue, headache(s), malaise, weakness Cardiovascular: Present: dyspnea, irregular heart rhythm. Absent: chest pain, chest pain with activity, palpitations Respiratory: Present: cough, dyspnea, chest congestion, excessive phlegm production, change in phlegm color, pain with cough Gastrointestinal: Present: constipation. Absent: abdominal pain, diarrhea, hematemesis, hematochezia, nausea, vomiting Genitourinary: Absent: difficulty urinating, dysuria Musculoskeletal: Present: muscle weakness. Absent: numbness, tingling Integumentary: Absent: skin ulcer, wounds Neurological: Absent: focal weakness, loss of vision Hematologic/Lymphatic: Absent: easy bleeding, lymphadenopathy Oncology - Exam - Constitutional Vitals: Temp Pulse Resp BP Pulse Ox 98.1 F 83 15 110/53 94 06/22/17 11:16 06/22/17 11:16 06/22/17 11:34 06/22/17 11:16 06/22/17 11:34 General appearance: cooperative, no acute distress, no febrile - Head Head exam: Present: atraumatic - Neck Neck exam: Absent: lymphadenopathy, tenderness - Respiratory Respiratory exam: Present: wheezes. Absent: respiratory distress - Cardiovascular Cardiovascular exam: Present: RRR, +S1, +S2, systolic murmur - GI/Abdominal GI/Abdominal exam: Present: normal bowel sounds, soft. Absent: guarding, tenderness - Extremities Exam Extremities exam: Absent: calf tenderness, pedal edema - Expanded Lower Extremity Exam Lower Leg exam: Absent: swelling - Neurological Exam Neurological exam: Present: alert, oriented X3, strengths equal and symetr throughout. Absent: no focal deficits - Psychiatric Psychiatric exam: Present: normal affect, normal mood - Skin Skin exam: Present: normal color, warm Oncology - Results Labs: Short CBC 06/22/17 Range/Units 02:26 WBC 2.1 L (4.3-11.1) K/mcL Hgb 7.2 L (11.5-15.4) g/dL Hct 24.3 L (35.3-44.9) % Plt Count 68 L (140-400) K/mcL Neutrophils # 1.6 (1.6-8.9) K/mcL BMP 06/22/17 02:26 Sodium 137 Potassium 4.1 Chloride 103 Carbon Dioxide 28 BUN 24 H Creatinine 1.43 H Glucose 98 Calcium 8.2 L Cardiac Enzymes 06/21/17 06/22/17 Range/Units 19:55 02:26 Troponin I < 0.03 0.04 H* (< 0.04) ng/mL Consult Discharge Plan - Plan Referrals: Grayson Vizcarra MD [Primary Care Provider] - <Gavin Coughlin - Last Filed: 06/23/17 10:00> Date of Encounter: 06/23/17 - Data of Consult Requesting Physician: Rose Marie Figueredo MD Primary Care Provider: Grayson Vizcarra MD - Consult Narrative History of present illness: Ms. Carter is a 81 year old female Oncology - Exam - Constitutional Vitals: Temp Pulse Resp BP Pulse Ox 98.2 F 77 14 105/58 92 06/23/17 07:42 06/23/17 07:42 06/23/17 08:12 06/23/17 07:42 06/23/17 08:12 Oncology - Results Labs: Short CBC 06/23/17 Range/Units 06:22 WBC 3.0 L (4.3-11.1) K/mcL Hgb 8.1 L (11.5-15.4) g/dL Hct 26.4 L (35.3-44.9) % Plt Count 61 L (140-400) K/mcL Neutrophils # 2.2 (1.6-8.9) K/mcL BMP 06/23/17 06:22 Sodium 135 L Potassium 4.1 Chloride 102 Carbon Dioxide 26 BUN 28 H Creatinine 1.44 H Glucose 87 Calcium 7.8 L - Attending Attestation I have seen and examined the patient and agree withe assessment and plan. She has intermittent episodes of pancytopenia. She has a slightly enlarged spleen. The CHF exacerbations may be increasing R heart pressure causing increased splenic sequestration. Will get U/S to evaluate further for potential hepatic congestion. Would recommend transfusion as she may also have element of high output cardiac failure. BM Bx may be necessary, however, I will defer that for now. Thank you for involving us in the care of this patient.
[2017-06-22] MEDS ORDERED: 0.9 % Sodium Chloride 250 ML ONE (16:47)
[2017-06-22] MEDS ORDERED: Aminoglycoside Consult 1 EACH MC ONE (18:44)
[2017-06-23] MEDS ORDERED: 0.9 % Sodium Chloride 250 ML ONE (00:07)
[2017-06-23] MEDS: Ipratropium/Albuterol Neb 3 ML IH SCH ×5 (03:47→19:52)
[2017-06-23] MEDS ORDERED: Furosemide 20 MG/2 ML VIAL IVP ONE (04:02)
[2017-06-23] MEDS: Acetaminophen 325 MG TABLET PO PRN (04:12)
[2017-06-23 06:38] LABS: Hemoglobin 8.1 g/dL (11.5-15.4)
[2017-06-23 06:40] LABS: Basophils % 0.7 %; Hematocrit 26.4 % (35.3-44.9); Immature Granulocytes % 0.3 % (0-4); Immature Platelets 5.9 % (1.1-6.1); Lymphocytes # 0.5 K/mcL (0.6-4.6); Lymphocytes % 17.3 %; Mean Corpuscular HGB Conc 30.7 g/dL (31.6-35.5); Mean Corpuscular Hemoglobin 24.9 pg (28.0-33.3); Mean Corpuscular Volume 81.2 fL (83.0-100.0); Monocytes # 0.3 K/mcL (0.0-1.3); Monocytes % 8.5 %; Neutrophils # 2.2 K/mcL (1.6-8.9); Red Blood Count 3.25 M/mcL (3.82-4.97); Red Cell Distribution Width 17.6 % (11.5-14.5); Segmented Neutrophils % 73.2 %
[2017-06-23 06:47] LABS: Platelet Count 61 K/mcL (140-400)
[2017-06-23 07:37] LABS: Calcium 7.8 mg/dL (8.6-10.3); Magnesium 2.1 mg/dL (1.6-2.6); Phosphorous 3.5 mg/dL (2.7-4.5); Potassium 4.1 mEq/L (3.5-5.1)
[2017-06-23] MEDS: Iron Polysaccharide Complex 150 MG CAPSULE PO SCH ×2 (08:41→20:50)
[2017-06-23] MEDS: *HR* Digoxin 0.125 MG TABLET PO SCH (08:43)
[2017-06-23] MEDS: *HR* OxyCODONE Immed Rel 5 MG TABLET PO PRN ×3 (08:44→21:51)
[2017-06-23] MEDS: Furosemide 40 MG/4 ML VIAL IVP SCH (08:44)
--- NOTE | 2017-06-23 13:58 | Oncology Inp Progress Note ---
Date of Encounter: 06/23/17 Time of Encounter: 10:30 (1) Pancytopenia Current Visit: Yes Status: Acute Assessment and plan: Acute CHF exacerbation with BNP 2000 and evidence of congestion on CXR. Awaiting echo report. Patient has extensive cardiac hx with a-fib, valve replacement, moderate mitral regurgitation, mitral valve repair (2009), Hx of rheumatic fever. Patient is requesting that cardiology follow her during her hospital stay, recommendation made to hospitalist team to consult if feel necessary. She reports feeling slightly improved following her 1 unit PRBC, although continues to report cough/chest congestion which remains unchanged. Her hgb has improved to 8.1 today. Panyctopenia appears to wax and wane over past 2 years. No evidence of hemolysis as LDH and Haptoglobin normal. Most recent colonoscopy in November denies s/s bleeding such as hematochezia, black/ tarry stools, hemoptysis or epistaxis. She follows closely with Dr. Robertson and is planned to have another colonoscopy soon as polyps on previous exam could not be removed. Ultrasound abdomen-liver/spleen unremarkable SPEP-no monoclonal proteins, normal TSH, Vit D, B12 and folate Anemia may be multifactorial including anemia from chronic disease and iron deficiency-Will hold off on iron infusion for inpatient stay. Etiology of thrombocytopenia/leukopenia not known at this time. Discussed results as summarized above with patient and patients family. Next step may indicate bone marrow biopsy given the negative workup for pancytopenia. Patient agreeable to bone marrow biopsy. Dr. Coughlin to further evaluate patient for bone marrow necessity. Oncology: Subj Interval history: Ms. Carter reports that she is feeling tired today after being up a bit throughout the night receiving 1 unit PRBC. She does report feeling slightly better following the PRBC but continues to report chest congestion and cough as her main complaint, symptoms have not worsened since the transfusion. She denies pain. Her daughters are at bedside, I updated them fully on plan of care as requested per patient. - Constitutional Vitals: Vital Signs Temp Pulse Resp BP Pulse Ox 06/23/17 11:55 97.8 F 89 14 118/68 91 06/23/17 08:12 14 92 06/23/17 07:42 98.2 F 77 14 105/58 92 06/23/17 07:33 98.2 F 77 14 105/58 92 06/23/17 03:41 98.4 F 68 20 117/62 06/23/17 00:47 98.4 F 64 22 95/53 06/23/17 00:05 98.0 F 86 18 106/53 06/22/17 23:32 17 96 06/22/17 19:59 97.9 F 108 17 151/75 93 06/22/17 16:41 14 93 06/22/17 16:38 97.9 F 83 14 101/47 93 Intake and Output 06/22/17 06/23/17 06/23/17 23:59 07:59 15:59 Intake Total 360 / 360 267 / 267 240 / 240 Output Total 500 / 500 550 / 550 Balance -140 / -140 -283 / -283 240 / 240 Intake: Oral 360 / 360 240 / 240 Blood Product 267 / 267 Rbcs Leuko Poor As-3 2nd Unit 267 / 267 [id number] Output: Urine 500 / 500 550 / 550 Other: Meal Breakfast Percent of Meal Consumed 100% # Voids 1 1 General appearance: cooperative, no acute distress, no febrile - Neck Neck exam: Absent: lymphadenopathy, tenderness - Respiratory Respiratory exam: Present: rhonchi. Absent: respiratory distress - Cardiovascular Cardiovascular exam: Present: irregular rhythm, +S1, +S2, systolic murmur - GI/Abdominal GI/Abdominal exam: Present: normal bowel sounds, soft, tenderness - Extremities Exam Extremities exam: Present: pedal edema. Absent: calf tenderness Additional comments: denies calf tenderness, erythema or warmth. She reports muscle spasms at night that are relieved with walking - Expanded Lower Extremity Exam Lower leg exam: Present: swelling - Neurological Exam Neurological exam: Present: alert, oriented X3, strengths equal and symetr throughout. Absent: no focal deficits - Psychiatric Psychiatric exam: Present: normal affect, normal mood - Skin Skin exam: Present: normal color, warm Oncology: Obj Data - Labs CBC & Chem 7: 06/23/17 06:22 06/23/17 06:22 - Impressions Impressions Abdomen Ultrasound 06/22/17 21:00 IMPRESSION: 1. No acute abnormality in the abdomen. 2. Stable lobulated fluid collection along the posterior aspect of the right hepatic lobe, which has previously been evaluated with CT. 3. Stable splenomegaly. 4. Status post cholecystectomy. D/ / Braulio Engle MD / Braulio Engle MD Interpreting Provider: Braulio Engle MD Consult Discharge Plan - Plan Referrals: Grayson Vizcarra MD [Primary Care Provider] -
--- NOTE | 2017-06-23 16:25 | Internal Med Progress Note ---
<JazGonzales - Last Filed: 06/23/17 16:23> Date of Encounter: 06/23/17 Time of Encounter: 10:15 - Assessment and plan (1) Acute and chronic respiratory failure with hypoxia Current Visit: Yes Status: Acute Assessment and plan: Secondary to CHF and HCAP (2) HCAP (healthcare-associated pneumonia) Current Visit: Yes Status: Acute Assessment and plan: Continue levaquin. Vancomycin and aztreonam discontinued yesterday (3) Acute exacerbation of CHF (congestive heart failure) Current Visit: No Status: Resolved Assessment and plan: Continue diuretics I/Os, fluid restriction, and daily weights Qualifiers: Congestive heart failure type: diastolic Qualified Code(s): I50.33 - Acute on chronic diastolic (congestive) heart failure (4) Atrial fibrillation Current Visit: No Status: Acute Assessment and plan: Controlled on digoxin No anticoagulation secondary to anemia Qualifiers: Atrial fibrillation type: paroxysmal Qualified Code(s): I48.0 - Paroxysmal atrial fibrillation (5) CKD (chronic kidney disease) stage 3, GFR 30-59 ml/min Current Visit: No Status: Chronic Assessment and plan: Baseline Continue to monitor (6) COPD (chronic obstructive pulmonary disease) Current Visit: No Status: Chronic Assessment and plan: Continue home medications Qualifiers: COPD type: unspecified COPD Qualified Code(s): J44.9 - Chronic obstructive pulmonary disease, unspecified (7) DVT prophylaxis Current Visit: No Status: Acute Assessment and plan: SCDs (8) Pancytopenia Current Visit: Yes Status: Acute Assessment and plan: 1 unit pRBCs transfused Workup negative thus far, negative for hemolysis Heme/onc considering bone marrow biopsy - Constitutional Vitals: Temp Pulse Resp BP Pulse Ox 97.8 F 61 12 116/54 93 06/23/17 15:04 06/23/17 15:04 06/23/17 15:04 06/23/17 15:04 06/23/17 15:04 General appearance: Present: cooperative, A&O X 3 (frail appearing elderly female ), pleasant, no acute distress, answers questions appropriately - Head Head exam: Present: atraumatic, normal inspection, normocephalic - ENT ENT exam: Present: mucous membranes moist - Neck Neck exam general surgery: Present: trachea midline - Respiratory Respiratory exam: Present: rhonchi. Absent: accessory muscle use, respiratory distress - Cardiovascular Cardiovascular exam: Present: irregular rhythm, +S1, +S2, systolic murmur - GI/Abdominal GI/Abdominal exam: Present: soft, no peritoneal signs. Absent: tenderness - Extremities Exam Extremities exam: Present: pedal edema - Neurological Exam Neurological exam: Present: alert, oriented X3 - Psychiatric Psychiatric exam: Present: normal affect, normal mood - Skin Skin exam: Present: dry, warm Internal Medicine: Result - Labs CBC & Chem 7: 06/23/17 06:22 06/23/17 06:22 Labs: Short CBC 06/23/17 Range/Units 06:22 WBC 3.0 L (4.3-11.1) K/mcL Hgb 8.1 L (11.5-15.4) g/dL Hct 26.4 L (35.3-44.9) % Plt Count 61 L (140-400) K/mcL Neutrophils # 2.2 (1.6-8.9) K/mcL BMP 06/23/17 06:22 Sodium 135 L Potassium 4.1 Chloride 102 Carbon Dioxide 26 BUN 28 H Creatinine 1.44 H Glucose 87 Calcium 7.8 L - Impressions Impressions Abdomen Ultrasound 06/22/17 21:00 IMPRESSION: 1. No acute abnormality in the abdomen. 2. Stable lobulated fluid collection along the posterior aspect of the right hepatic lobe, which has previously been evaluated with CT. 3. Stable splenomegaly. 4. Status post cholecystectomy. D/ / Braulio Engle MD / Braulio Engle MD Interpreting Provider: Braulio Engle MD Echocardiogram 06/23/17 08:00 Impressions: LVEF 60%. Indeterminate diastolic function. Dilated RV with mild reduction in function. Bioprosthetic mitral valve demonstrates no significant gradient by Doppler and trace mitral regurgitation. S/p tricuspid annuloplasty. Moderate-severe tricuspid regurgitation. Mild pulmonic regurgitation. Severe pulmonary hypertension. Left Ventricular Wall Motion: Rest Echo Findings All wall segments showed normal motion. Findings: Study Quality * Technically adequate exam. ECG Findings * Unclear underlying rhythm - possibly atrial fibrillation although appears regular, HR upper 50's-60's. Left Ventricle * LVEF 60%. * Indeterminate diastolic function. * Normal LV size and wall thickness. Right Ventricle * Dilated RV with mild reduction in function. Left Atrium * Severely dilated left atrium. Right Atrium * Moderately dilated right atrium. Aortic Valve * No aortic regurgitation. * Aortic valve not well visualized. * No aortic stenosis. Mitral Valve * No prosthetic mitral stenosis. * Trace mitral regurgitation. * Bioprosthetic mitral valve not well visualized. Tricuspid Valve * Tricuspid valve not well visualized. * S/p tricuspid annuloplasty. * Moderate-severe tricuspid regurgitation. * No tricuspid stenosis. * Estimated RA pressure is 20 mmHg. * Estimated RVSP is 67 mmHg. * Severe pulmonary hypertension. Pulmonic Valve * Pulmonic valve is not well visualized. * No pulmonic stenosis. * Mild pulmonic regurgitation. Pulmonary Artery * Pulmonary artery not well visualized. Aorta * Not well visualized. Pericardium * There is no pericardial effusion present. Interatrial Septum * No evidence of PFO by color Doppler. IVC * The IVC is dilated. * < 50% respiratory change. - VTE Documentation of Mechanical Device: Graduated compression elastic hosiery Consult Discharge Plan - Plan Referrals: Grayson Vizcarra MD [Primary Care Provider] - 06/30/17 2:45 pm <Juan Pablo Reilly T - Last Filed: 06/23/17 17:35> Date of Encounter: 06/23/17 - Constitutional Vitals: Temp Pulse Resp BP Pulse Ox 97.8 F 61 12 116/54 93 06/23/17 15:04 06/23/17 15:04 06/23/17 16:32 06/23/17 15:04 06/23/17 16:32 Internal Medicine: Result - Labs CBC & Chem 7: 06/23/17 06:22 06/23/17 06:22 Labs: Short CBC 06/23/17 Range/Units 06:22 WBC 3.0 L (4.3-11.1) K/mcL Hgb 8.1 L (11.5-15.4) g/dL Hct 26.4 L (35.3-44.9) % Plt Count 61 L (140-400) K/mcL Neutrophils # 2.2 (1.6-8.9) K/mcL BMP 06/23/17 06:22 Sodium 135 L Potassium 4.1 Chloride 102 Carbon Dioxide 26 BUN 28 H Creatinine 1.44 H Glucose 87 Calcium 7.8 L - Impressions Impressions Abdomen Ultrasound 06/22/17 21:00 IMPRESSION: 1. No acute abnormality in the abdomen. 2. Stable lobulated fluid collection along the posterior aspect of the right hepatic lobe, which has previously been evaluated with CT. 3. Stable splenomegaly. 4. Status post cholecystectomy. D/ / Braulio Engle MD / Braulio Engle MD Interpreting Provider: Braulio Engle MD Echocardiogram 06/23/17 08:00 Impressions: LVEF 60%. Indeterminate diastolic function. Dilated RV with mild reduction in function. Bioprosthetic mitral valve demonstrates no significant gradient by Doppler and trace mitral regurgitation. S/p tricuspid annuloplasty. Moderate-severe tricuspid regurgitation. Mild pulmonic regurgitation. Severe pulmonary hypertension. Left Ventricular Wall Motion: Rest Echo Findings All wall segments showed normal motion. Findings: Study Quality * Technically adequate exam. ECG Findings * Unclear underlying rhythm - possibly atrial fibrillation although appears regular, HR upper 50's-60's. Left Ventricle * LVEF 60%. * Indeterminate diastolic function. * Normal LV size and wall thickness. Right Ventricle * Dilated RV with mild reduction in function. Left Atrium * Severely dilated left atrium. Right Atrium * Moderately dilated right atrium. Aortic Valve * No aortic regurgitation. * Aortic valve not well visualized. * No aortic stenosis. Mitral Valve * No prosthetic mitral stenosis. * Trace mitral regurgitation. * Bioprosthetic mitral valve not well visualized. Tricuspid Valve * Tricuspid valve not well visualized. * S/p tricuspid annuloplasty. * Moderate-severe tricuspid regurgitation. * No tricuspid stenosis. * Estimated RA pressure is 20 mmHg. * Estimated RVSP is 67 mmHg. * Severe pulmonary hypertension. Pulmonic Valve * Pulmonic valve is not well visualized. * No pulmonic stenosis. * Mild pulmonic regurgitation. Pulmonary Artery * Pulmonary artery not well visualized. Aorta * Not well visualized. Pericardium * There is no pericardial effusion present. Interatrial Septum * No evidence of PFO by color Doppler. IVC * The IVC is dilated. * < 50% respiratory change. - Attending Attestation I examined this patient and my medical decision-making was reviewed with the Resident Physician on 06/23/17. I agree with the documented findings, disposition and treatment plan as described except to the extent set forth below. Seen and examined at the bedside 81 F admitted and being managed for acute on chronic resp failure due to HCAP, CHFE, Afib. She also has a hx of CKD III, COPD, Pancytopenia, ANDREA She has no new complains She has had multiple anemia work ups by heme/onc, no evidence of intravascular hemolysis. ECHO is pending, USS noted for splenomegaly. Exam remarkable for wheezing bilaterally, as well as transmitted breath sounds bilaterally, no pedal edema Labs and Imaging reviewed Continue current care, onc levi noted and appreciated Rest of details as in the resident physicians documentation.
[2017-06-23] MEDS ORDERED: Levofloxacin 750 MG/150 ML 750 MG/150 ML BAG IVPB SCH (18:00)
[2017-06-24] MEDS: Ipratropium/Albuterol Neb 3 ML IH SCH ×5 (00:08→16:11)
[2017-06-24 04:11] LABS: Eosinophils % 1.2 %; Red Cell Distribution Width 17.8 % (11.5-14.5)
[2017-06-24 04:13] LABS: Basophils % 0.4 %; Hematocrit 28.4 % (35.3-44.9); Hemoglobin 8.4 g/dL (11.5-15.4); Immature Granulocytes % 0.4 % (0-4); Immature Platelets 8.5 % (1.1-6.1); Lymphocytes # 0.5 K/mcL (0.6-4.6); Lymphocytes % 19.4 %; Mean Corpuscular HGB Conc 29.6 g/dL (31.6-35.5); Mean Corpuscular Hemoglobin 24.3 pg (28.0-33.3); Mean Corpuscular Volume 82.1 fL (83.0-100.0); Monocytes # 0.3 K/mcL (0.0-1.3); Monocytes % 9.7 %; Neutrophils # 1.8 K/mcL (1.6-8.9); Red Blood Count 3.46 M/mcL (3.82-4.97); Segmented Neutrophils % 68.9 %
[2017-06-24 04:23] LABS: Calcium 7.9 mg/dL (8.6-10.3); Potassium 4.4 mEq/L (3.5-5.1)
[2017-06-24 04:37] LABS: Platelet Count 56 K/mcL (140-400)
[2017-06-24] MEDS: *HR* OxyCODONE Immed Rel 5 MG TABLET PO PRN (04:59)
[2017-06-24] MEDS: Iron Polysaccharide Complex 150 MG CAPSULE PO SCH (10:41)
[2017-06-24] MEDS: *HR* Digoxin 0.125 MG TABLET PO SCH (10:42)
[2017-06-24] MEDS: Furosemide 40 MG/4 ML VIAL IVP SCH (10:44)
--- NOTE | 2017-06-24 13:02 | Discharge Summary ---
<uJan Pablo Reilly T - Last Filed: 06/24/17 15:56> Date of Encounter: 06/24/17 - Discharge Medications Home Medications: Cholecalciferol (Vitamin D3) [Vitamin D3] 2,000 unit PO DAILY 02/14/15 [History] Docusate Sodium [Colace] 100 mg PO BID PRN 02/14/15 [History] Estradiol [Estrace] 0.5 gm VG 2XW 02/14/15 [History] Iron Polysaccharide Complex [Ferrex 150] 150 mg PO BID 02/14/15 [History] Levothyroxine [Synthroid] 125 mcg PO DAILY 02/14/15 [History] Nitroglycerin 0.4 mg SL Q5MIN PRN 02/14/15 [History] Ranitidine HCl [Zantac] 150 mg PO BID PRN 02/14/15 [History] Rosuvastatin [Crestor] 10 mg PO HS 02/14/15 [History] Ascorbate Calcium [Vitamin C] 500 mg PO DAILY 05/12/16 [History] Ondansetron HCl [Zofran] 4 mg PO TID PRN 05/12/16 [History] Albuterol Neb [Proventil Neb] 2.5 mg IH [id number] #[id number] inhsol 05/16/16 [Rx] Loratadine [Allergy Relief] 10 mg PO DAILY 12/03/16 [History] Oxygen 2 l NS CONT 12/03/16 [History] Digoxin [Lanoxin] 0.125 mg PO DAILY #30 tablet 12/09/16 [Rx] Metoprolol [Lopressor] 12.5 mg PO BID #60 tablet 12/09/16 [Rx] Furosemide [Lasix] 20 mg PO QPM 01/20/17 [History] Furosemide [Lasix] 40 mg PO QAM 01/20/17 [History] Potassium Chloride [K-Tab ER] 20 meq PO BID 01/20/17 [History] OxyCODONE Immed Rel [Roxicodone 5 MG] 5 mg PO Q6HR PRN #25 tab 01/24/17 [Rx] Acetaminophen [Tylenol] 325 mg PO Q6HR PRN 06/03/17 [History] Omeprazole [PriLOSEC] 20 mg PO DAILY 06/21/17 [History] Allergies/Adverse Reactions: 3 Allergy/AdvReac Type Severity Reaction Status Date / Time Iodinated Contrast- Oral and Allergy Severe Anaphylaxis Verified 02/23/15 14:09 IV Dye [Iodinated Contrast Media - IV Dye] iodine Allergy Severe Anaphylaxis Verified 02/23/15 14:09 Penicillins Allergy Severe Swelling Verified 02/23/15 14:09 of Lip/Tongue/Throat povidone-iodine Allergy Severe Anaphylaxis Verified 02/23/15 14:09 [From Betadine] soap [From Betadine] Allergy Severe Anaphylaxis Verified 02/23/15 14:09 atorvastatin Allergy Intermediate Rash Verified 02/23/15 14:09 Sulfa (Sulfonamide Allergy Intermediate Rash Verified 02/23/15 14:09 Antibiotics) bacitracin Allergy Mild Rash Verified 02/23/15 14:09 nitrofurantoin Allergy Mild Rash Verified 02/23/15 14:09 [From Macrobid] polymyxin B Allergy Unknown See Verified 02/23/15 14:09 Comments egg yolk AdvReac Mild Nausea Verified 02/23/15 14:09 Procedures/tests Complete & Pending: Procedures Performed prior 72 hours Category Date Time Status CT guided biopsy [CT] Routine Cat Scan 06/24/[address] biopsy bone marrow [CT] Routine Exams 06/24/17 Completed abdominal ultrasound [US abdomen complete] [US] Routine Exams 06/22/17 21:00 Completed EV echocardiogram Routine Y 06/23/17 08:00 Completed Date of admission: 06/21/17 17:37 Primary care physician: Grayson Vizcarra MD Consults: 06/22/17 12:11 Consult to Oncology Hematology [CONS] Routine Consulting Provider: Mara Garces Reason for Consult: pancytopenia Call Completed: Yes 06/24/17 12:03 Consult to Interventional Radiology [CONS] Routine Consulting Provider: Radiology Interventional Cols Reason for Consult: bone marrow biopsy, pancytopenia Call Completed: Yes - Patient Status Disposition: Transfer SNF Condition: Fair - Ambulatory Orders Ambulatory Orders: Complete Blood Count [HEME] Time Frame: 1 Week, Facility: [facility], Location: Lab Comprehensive Metabolic Panel [CHEM] Time Frame: 1 Week, Facility: [facility], Location: Lab - Discharge Instructions Follow Up With: Grayson Vizcarra MD [Primary Care Provider] - 06/30/17 2:45 pm Additional Instructions: Please follow up with Dr. Ruiz of [facility]. Please follow up with cardiology. Hospital course: Ms. Carter is a 81 year old female - Time Spent with Patient Total time spent providing and/or coordinating discharge services: - Constitutional Vitals: Temp Pulse Resp BP Pulse Ox 98.2 F 78 19 109/60 97 06/24/17 11:17 06/24/17 15:21 06/24/17 15:21 06/24/17 15:21 06/24/17 15:21 - Attending Attestation I examined this patient and my medical decision-making was reviewed with the Resident Physician on 06/24/17. I agree with the documented findings, disposition and treatment plan as described except to the extent set forth below. Seen and examined at the bedside with her daughter 81 F admitted and being managed for acute on chronic resp failure due to HCAP, CHFE, Afib. She also has a hx of CKD III, COPD, Pancytopenia, ANDREA She has no new complains ECHO done 06/23 noted for severe TR and Pulm HTN, MV with no significant gradient , s/p annuloplasty, EF is preserved She has had multiple anemia work ups by heme/onc, no evidence of intravascular hemolysis.USS noted for splenomegaly. She is awaiting bone marrow biopsy today She is at baseline at rest , and her O2 requirements are at baseline Chest exam revealed significant improvement in her breath sounds Labs and Imaging reviewed : CBC stable, HB stable, Chem stable She can be discharged home on antibiotics/home meds and home O2, with services after her bone marrow biopsy Follow up with Oncology as outpatient Rest of details as in the resident physicians documentation. <Gonzales Sebastian - Last Filed: 06/24/17 17:36> Date of Encounter: 06/24/17 Time of Encounter: 08:45 - Discharge Diagnosis (1) Acute and chronic respiratory failure with hypoxia Priority: Primary Status: Acute (2) HCAP (healthcare-associated pneumonia) Priority: Primary Status: Acute (3) Acute exacerbation of CHF (congestive heart failure) Priority: Primary Status: Resolved Qualifiers: Congestive heart failure type: diastolic Qualified Code(s): I50.33 - Acute on chronic diastolic (congestive) heart failure (4) Atrial fibrillation Priority: Secondary Status: Chronic Qualifiers: Atrial fibrillation type: paroxysmal Qualified Code(s): I48.0 - Paroxysmal atrial fibrillation (5) CKD (chronic kidney disease) stage 3, GFR 30-59 ml/min Priority: Secondary Status: Chronic (6) COPD (chronic obstructive pulmonary disease) Priority: Secondary Status: Chronic Qualifiers: COPD type: unspecified COPD Qualified Code(s): J44.9 - Chronic obstructive pulmonary disease, unspecified (7) DVT prophylaxis Priority: Secondary Status: Acute (8) Pancytopenia Priority: Primary Status: Acute Procedures/tests Complete & Pending: Procedures Performed prior 72 hours Category Date Time Status abdominal ultrasound [US abdomen complete] [US] Routine Exams 06/22/17 21:00 Completed EV echocardiogram Routine Y 06/23/17 08:00 Completed Date of admission: 06/21/17 17:37 Primary care physician: Grayson Vizcarra MD Consults: 06/22/17 12:11 Consult to Oncology Hematology [CONS] Routine Consulting Provider: Mara Garces Reason for Consult: pancytopenia Call Completed: Yes 06/24/17 12:03 Consult to Interventional Radiology [CONS] Routine Consulting Provider: Radiology Interventional Cols Reason for Consult: bone marrow biopsy, pancytopenia Call Completed: Yes Discharging clinician: Gonzales Sebastian Anticipated date of discharge: 06/24/17 - Patient Status Functional capacity at discharge: independent ambulation Overall status at discharge: patient is progressing back to baseline - Diet and Activity Activity: resume usual activities as tolerated Diet: advance to your usual diet Hospital course: Ms. Carter is a 81 year old female that presented on 06/21/17 with cough, SOB, and malaise. She was febrile at 101. She was brought to the hospital from assisted living by EMS and found to have pancytopenia and CKD. She was found to have an exacerbation of CHF and HCAP. She was treated with vanco, levaquin, and azactam , but was eventually de-escalated to levaquin, which was discontinued today. She was also given supplemental O2, bronchodilators, and tessalon perles. For CHF, she was treated with IV lasix and discharged on her home po dose. For the pancytopenia, she was evaluated by oncology for hemolysis (which was negative) and a bone marrow biposy was performed today. She did require 1 unit of pRBC during her stay. Echo was performed, which showed tricuspid regurgitation and an intact bioprosthetic mitral valve. Her shortness of breath improved throughout her stay, though she still does have some exertional dyspnea, and she was discharged back to assisted living with instructions to follow up with both oncology and cardiology. - Time Spent with Patient Total time spent providing and/or coordinating discharge services: - Constitutional Vitals: Temp Pulse Resp BP Pulse Ox 98.2 F 82 16 117/64 94 06/24/17 11:17 06/24/17 11:17 06/24/17 11:17 06/24/17 11:17 06/24/17 11:17 General appearance: Present: cooperative, A&O X 3 (frail appearing elderly female ), pleasant, no acute distress, answers questions appropriately - Head Head exam: Present: atraumatic, normal inspection, normocephalic - ENT ENT exam: Present: mucous membranes moist - Neck Neck exam general surgery: Present: trachea midline - Respiratory Respiratory exam: Present: decreased breath sounds, CTAB. Absent: accessory muscle use, respiratory distress - Cardiovascular Cardiovascular exam: Present: +S1, +S2, systolic murmur (over left lower sternal border) - GI/Abdominal GI/Abdominal exam: Present: soft, no peritoneal signs. Absent: tenderness - Extremities Exam Extremities exam: Absent: pedal edema - Neurological Exam Neurological exam: Present: alert, oriented X3 - Psychiatric Psychiatric exam: Present: normal affect, normal mood - Skin Skin exam: Present: dry, warm - VTE Documentation of Mechanical Device: Graduated compression elastic hosiery
[2017-06-24 13:22] LABS: INR 1.1; Prothrombin Time 12.4 Seconds (9.4-12.1)
--- NOTE | 2017-06-24 14:57 | Oncology Inp Progress Note ---
Date of Encounter: 06/24/17 Time of Encounter: 11:30 (1) Pancytopenia Current Visit: Yes Status: Acute Assessment and plan: Acute CHF exacerbation. Symptoms continue to progressively improve. Recommend f/ u with home sales consultant for further echo result review, she is established with Dr. Cat. Panyctopenia appears to wax and wane over past 2 years. No evidence of hemolysis as LDH and Haptoglobin normal. Most recent colonoscopy in November denies s/s bleeding such as hematochezia, black/ tarry stools, hemoptysis or epistaxis. She follows closely with Dr. Robertson and is planned to have another colonoscopy soon as polyps on previous exam could not be removed. Ultrasound abdomen-liver/spleen-mild splenomegaly not significant enough to explain degree of pancytopenia SPEP-no monoclonal proteins, normal TSH, Vit D, B12 and folate Anemia may be multifactorial including anemia from chronic disease coupled with iron deficiency-Will hold off on iron infusion for inpatient stay. Etiology of thrombocytopenia/leukopenia not known at this time, pending bone marrow biopsy. Discussed care with hospitalist team today, patient is planned for bone marrow biopsy and potential discharge following. Patients daughter was given card with follow up appointment with Dr. Ruiz. At this time we will plan to follow up with patient on an outpatient basis and discuss bone marrow biopsy results at follow up. Oncology: Subj Interval history: Patient resting in bed, no acute signs of distress, family at bedside. Reviewed plan of care, plan to discuss with hospitalist group. Patient is NPO for planned bone marrow biopsy today. - Constitutional Vitals: Vital Signs Temp Pulse Resp BP Pulse Ox 06/24/17 12:42 18 97 06/24/17 11:17 98.2 F 82 16 117/64 94 06/24/17 07:58 16 92 06/24/17 06:39 97.9 F 78 14 119/82 93 06/24/17 05:20 97.7 F 80 17 135/63 90 06/23/17 19:52 12 93 06/23/17 19:00 97.6 F 60 18 97/55 93 06/23/17 16:32 12 93 06/23/17 15:04 97.8 F 61 12 116/54 93 Intake and Output 06/23/17 06/24/17 06/24/17 23:59 07:59 15:59 Intake Total 120 / 120 0 / 0 Output Total 300 / 300 Balance 120 / 120 0 / 0 -300 / -300 Intake: Oral 120 / 120 0 / 0 Output: Urine 300 / 300 Other: Meal Dinner npo Percent of Meal Consumed 90% # Voids 2 1 Weight 64.3 kg Patient Weight 06/24/17 23:59 Weight 64.3 kg General appearance: cooperative, no acute distress, no febrile - Neurological Exam Neurological exam: Present: alert, oriented X3, strengths equal and symetr throughout. Absent: no focal deficits, facial droop - Psychiatric Psychiatric exam: Present: normal affect, normal mood - Skin Skin exam: Present: normal color, warm Oncology: Obj Data - Labs CBC & Chem 7: 06/24/17 03:17 06/24/17 03:17 - Impressions Impressions Echocardiogram 06/23/17 08:00 Impressions: LVEF 60%. Indeterminate diastolic function. Dilated RV with mild reduction in function. Bioprosthetic mitral valve demonstrates no significant gradient by Doppler and trace mitral regurgitation. S/p tricuspid annuloplasty. Moderate-severe tricuspid regurgitation. Mild pulmonic regurgitation. Severe pulmonary hypertension. Left Ventricular Wall Motion: Rest Echo Findings All wall segments showed normal motion. Findings: Study Quality * Technically adequate exam. ECG Findings * Unclear underlying rhythm - possibly atrial fibrillation although appears regular, HR upper 50's-60's. Left Ventricle * LVEF 60%. * Indeterminate diastolic function. * Normal LV size and wall thickness. Right Ventricle * Dilated RV with mild reduction in function. Left Atrium * Severely dilated left atrium. Right Atrium * Moderately dilated right atrium. Aortic Valve * No aortic regurgitation. * Aortic valve not well visualized. * No aortic stenosis. Mitral Valve * No prosthetic mitral stenosis. * Trace mitral regurgitation. * Bioprosthetic mitral valve not well visualized. Tricuspid Valve * Tricuspid valve not well visualized. * S/p tricuspid annuloplasty. * Moderate-severe tricuspid regurgitation. * No tricuspid stenosis. * Estimated RA pressure is 20 mmHg. * Estimated RVSP is 67 mmHg. * Severe pulmonary hypertension. Pulmonic Valve * Pulmonic valve is not well visualized. * No pulmonic stenosis. * Mild pulmonic regurgitation. Pulmonary Artery * Pulmonary artery not well visualized. Aorta * Not well visualized. Pericardium * There is no pericardial effusion present. Interatrial Septum * No evidence of PFO by color Doppler. IVC * The IVC is dilated. * < 50% respiratory change. - ABG Interpretation ABG results: PT/INR, D-dimer PT 12.4 Seconds (9.4-12.1) H 06/24/17 12:49 Consult Discharge Plan - Plan Referrals: Grayson Vizcarra MD [Primary Care Provider] - 06/30/17 2:45 pm
[2017-06-24] MEDS ORDERED: *HR* FentaNYL (PF) 100 MCG/2 ML VIAL IVP ONE (14:59)
[2017-06-24] MEDS ORDERED: *HR* Midazolam HCl 2 MG/2 ML VIAL IVP ONE (14:59)
--- NOTE | 2017-06-24 15:24 | IR Procedure Note ---
Date of procedure: 06/24/17 Consent Obtained: Verbal consent, Written consent Timeout: Correct patient and procedure verified, Correct site verified, Time out performed, Skin prep completed Local anesthetic: Lidocaine 1% Indications: Neutropenia Procedure Performed: Bone marrow biopsy Was there an psych assistant present: No Site/Technique: CT guided bone marrow biopsy Results/Findings: CT guided bone marrow biopsy Estimated blood loss (cc): 3 Complications: None; Tolerated procedure well Post Procedure Treatment Plan: Continue inpatient care Specimen: 11 gauge core needle biopsy. 10 cc marrow
[2017-06-24 16:16] VITALS: BP 108/55
--- NOTE | 2017-06-24 17:48 | Physician Discharge Referral ---
Home Health/Hosp Referral Info Transfer to: Home Health Attending Provider: Drake Reilly Provider in Charge Post Discharge: PCP - Diagnosis (1) COPD (chronic obstructive pulmonary disease) Priority: Primary Status: Chronic (2) CAD (coronary artery disease) Priority: Secondary Status: Chronic (3) Chronic a-fib Priority: Secondary Status: Chronic (4) Hypothyroidism Priority: Secondary Status: Chronic (5) CKD (chronic kidney disease) stage 3, GFR 30-59 ml/min Priority: Secondary Status: Chronic (6) Acute exacerbation of CHF (congestive heart failure) Priority: Primary Status: Resolved (7) Pancytopenia Priority: Secondary Status: Chronic (8) Acute and chronic respiratory failure with hypoxia Priority: Primary Status: Acute - Respiratory Orders Oxygen / L per min Smoking Cessation: Smoking cessation has been advised. For more information, call the [place] Tobacco Quit Line at 9-582-ZIBE-NOW. - Diet/Nutrition Diet/Nutrition Orders: Cardiac - Activity Activity Orders: Up ad alvin - Services Needed Following services are medically necessary services: Nursing, Home Health Aide - Transfer Medications Home Medications: Cholecalciferol (Vitamin D3) [Vitamin D3] 2,000 unit PO DAILY 02/14/15 [History] Docusate Sodium [Colace] 100 mg PO BID PRN 02/14/15 [History] Estradiol [Estrace] 0.5 gm VG 2XW 02/14/15 [History] Iron Polysaccharide Complex [Ferrex 150] 150 mg PO BID 02/14/15 [History] Levothyroxine [Synthroid] 125 mcg PO DAILY 02/14/15 [History] Nitroglycerin 0.4 mg SL Q5MIN PRN 02/14/15 [History] Ranitidine HCl [Zantac] 150 mg PO BID PRN 02/14/15 [History] Rosuvastatin [Crestor] 10 mg PO HS 02/14/15 [History] Ascorbate Calcium [Vitamin C] 500 mg PO DAILY 05/12/16 [History] Ondansetron HCl [Zofran] 4 mg PO TID PRN 05/12/16 [History] Albuterol Neb [Proventil Neb] 2.5 mg IH [id number] #[id number] inhsol 05/16/16 [Rx] Loratadine [Allergy Relief] 10 mg PO DAILY 12/03/16 [History] Oxygen 2 l NS CONT 12/03/16 [History] Digoxin [Lanoxin] 0.125 mg PO DAILY #30 tablet 12/09/16 [Rx] Metoprolol [Lopressor] 12.5 mg PO BID #60 tablet 12/09/16 [Rx] Furosemide [Lasix] 20 mg PO QPM 01/20/17 [History] Furosemide [Lasix] 40 mg PO QAM 01/20/17 [History] Potassium Chloride [K-Tab ER] 20 meq PO BID 01/20/17 [History] OxyCODONE Immed Rel [Roxicodone 5 MG] 5 mg PO Q6HR PRN #25 tab 01/24/17 [Rx] Acetaminophen [Tylenol] 325 mg PO Q6HR PRN 06/03/17 [History] Omeprazole [PriLOSEC] 20 mg PO DAILY 06/21/17 [History] Allergies/Adverse Reactions: 3 Allergy/AdvReac Type Severity Reaction Status Date / Time Iodinated Contrast- Oral and Allergy Severe Anaphylaxis Verified 02/23/15 14:09 IV Dye [Iodinated Contrast Media - IV Dye] iodine Allergy Severe Anaphylaxis Verified 02/23/15 14:09 Penicillins Allergy Severe Swelling Verified 02/23/15 14:09 of Lip/Tongue/Throat povidone-iodine Allergy Severe Anaphylaxis Verified 02/23/15 14:09 [From Betadine] soap [From Betadine] Allergy Severe Anaphylaxis Verified 02/23/15 14:09 atorvastatin Allergy Intermediate Rash Verified 02/23/15 14:09 Sulfa (Sulfonamide Allergy Intermediate Rash Verified 02/23/15 14:09 Antibiotics) bacitracin Allergy Mild Rash Verified 02/23/15 14:09 nitrofurantoin Allergy Mild Rash Verified 02/23/15 14:09 [From Macrobid] polymyxin B Allergy Unknown See Verified 02/23/15 14:09 Comments egg yolk AdvReac Mild Nausea Verified 02/23/15 14:09 Certification: Further, I certify that my clinical findings support that this patient is homebound (i.e. absences from home require considerable and taxing effort and are for medical reasons or [employer] services or infrequently or short duration when for other reasons) because: Homebound Reason: Patient requires assistance of a person or device to safely leave home Attestation: My signature below is to certify that this patient is under my care and that I, or nurse practitioner, or a physician's photographer assistant working with me, has a face-to -face encounter with this patient.
[2017-06-25] MEDS ORDERED: levoFLOXacin 500 MG TABLET PO SCH (09:00)
== END 2017-06-24 18:45 | DRG 291 ==
LOC: 2NENU 13:56 → EMEROO 13:56 → 2NENU 17:07 → SUATTDRO 17:37
PROVIDERS: ADMIT Hospitalist; ATTEND Internal Medicine